=== PATIENT | female | born 1950 | race Hispanic/Latino ===

== ENCOUNTER 2018-06-26 12:25 | Emergency (ER) | payer MEDICARE ==
[2018-06-26 13:21] LABS: BASOPHILS % (AUTO) 0.1 % (0.0-5.0); EOSINOPHILS % (AUTO) 0.7 % (0.0-8.0); HEMATOCRIT 39.6 % (36-48); LYMPHOCYTES % (AUTO) 32.3 % (21.0-51.0); MEAN CORPUSCULAR HEMOGLOBIN 27.8 pg (27.0-33.0); MEAN CORPUSCULAR HGB CONC 32.7 g/dL (32.0-36.0); MEAN CORPUSCULAR VOLUME 84.8 fL (79-99); MONOCYTES % (AUTO) 5.8 % (3.0-13.0); NEUTROPHILS % (AUTO) 61.1 % (40.0-77.0); PLATELET COUNT (AUTO) 356 K/uL (130-400); RED BLOOD CELL COUNT(AUTO) 4.67 MIL/uL (4.00-5.50); RED CELL DISTRIBUTION WIDTH 15.8 % (11.0-15.5); WHITE BLOOD COUNT (AUTO) 9.5 K/uL (4.8-10.8)
[2018-06-26 13:27] LABS: APPEARANCE,URINE Clear (CLEAR); BILIRUBIN,URINE Negative (NEGATIVE); COLOR,URINE Yellow (YELLOW); GLUCOSE, URINE (UA) >=1000 mg/dL (NEGATIVE); KETONES,URINE Negative (NEGATIVE); LEUKOCYTE ESTERASE ,URINE Small (NEGATIVE); NITRATE,URINE Negative (NEGATIVE); OCCULT BLOOD,URINE Negative (NEGATIVE); PH,URINE 5.5 (5.0-8.0); PROTEIN,URINE Negative (NEGATIVE); UROBILINOGEN,URINE 0.2 mg/dL (0.2-1.0)
[2018-06-26] MEDS ORDERED: ONDANSETRON HCL 4 MG/2 ML VIAL ONE (13:28)
[2018-06-26] MEDS ORDERED: KETOROLAC TROMETHAMINE 30MG/ML ONE (13:29)
[2018-06-26] MEDS ORDERED: SODIUM CHLORIDE 0.9% 1000ML 1,000 ML IV ONE (13:29)
[2018-06-26 13:46] LABS: CARBON DIOXIDE 24 mmol/L (21-32); CHLORIDE 101 mmol/L (101-111); CREATININE 0.8 mg/dL (0.5-1.5); GLOMERULAR FILTR. RATE CALC 77 mL/min (>60); GLUCOSE,RANDOM 120 mg/dL (70-105); POTASSIUM 4.9 mmol/L (3.5-5.1); SODIUM SERUM 135 mmol/L (136-145); UREA NITROGEN, BLOOD 25 mg/dL (7-18)
[2018-06-26 13:51] LABS: ALANINE AMINOTRANSFERASE 54 U/L (12-78); ALBUMIN 3.5 g/dL (3.5-5.0); ASPARTATE AMINOTRANSFERASE 58 U/L (10-37); BILIRUBIN,DIRECT < 0.1 mg/dL (0.0-0.3); BILIRUBIN,TOTAL 0.3 mg/dL (0.2-1.0); LIPASE 162 U/L (114-286); TOTAL PROTEIN, SERUM 9.2 g/dL (6.0-8.3)
[2018-06-26 13:56] LABS: BACTERIA,URINE Few /HPF (None Seen); RBC,URINE 0-1 /HPF (0-1); SQUAMOUS EPITHELIAL CELL,UR Rare /HPF (0-2)
== END 2018-06-26 14:47 | disposition home or self-care (01) ==
LOC: EDH 12:25
DX: K52.9 Noninfective gastroenteritis and colitis, unspecified (principal); N12 Tubulo-interstitial nephritis, not specified as acute or chronic; I10 Essential (primary) hypertension; E78.00 Pure hypercholesterolemia, unspecified; E11.9 Type 2 diabetes mellitus without complications; Z85.3 Personal history of malignant neoplasm of breast; Z90.710 Acquired absence of both cervix and uterus; Z98.890 Other specified postprocedural states
CPT/HCPCS: 36415; 74176; 80048; 80076; 81001; 83690; 85025; 96361; 96374; 96375; 99284; J1885; J2405; J7030

== ENCOUNTER → 2019-02-19 | Outpatient (CLI) | payer MEDICARE | END | disposition home or self-care (01) | LOC: OIH 14:50 | PROVIDERS: ATTEND Family Medicine | DX: G89.4 Chronic pain syndrome (principal); M25.552 Pain in left hip; M25.551 Pain in right hip | CPT/HCPCS: 73521 ==

== ENCOUNTER → 2019-03-20 | Outpatient (CLI) | payer MEDICARE | END | disposition home or self-care (01) | LOC: RAH 11:43 | PROVIDERS: ATTEND Family Medicine | DX: J44.1 Chronic obstructive pulmonary disease with (acute) exacerbation (principal) | CPT/HCPCS: 71046 ==

== ENCOUNTER → 2020-10-05 | Outpatient (CLI) | payer MEDICARE ==
[~2020-10-05] MED LIST: ALEN70TA80 PO; ATOR40TA71 PO; BACL10TA PO; CETI10TA86 PO; CHOL500050 PO; DAPA10TA PO; GABA-529 PO; GEMF600T89 PO; IBUP-2077 PO; LETR2.5T7 PO; LOSA1TAB42 PO; MELO-106 PO; METF-444 PO; MONT10TA32 PO; NORT75CA PO; ONDA-104 PO; PANT40TA54 PO; SOLI5 PO
== END | disposition home or self-care (01) ==
LOC: SHCH 14:12
PROVIDERS: ATTEND Internal Medicine Cardiovascular Disease
DX: R00.2 Palpitations (principal)
CPT/HCPCS: 93306; 93356

== ENCOUNTER → 2020-10-08 | Outpatient (CLI) | payer MEDICARE ==
[~2020-10-08] VITALS: Ht 154.9 cm; Wt 92.5 kg
[~2020-10-08] MED LIST changes: +REGADENOSON 0.4 MG/5 ML PF SYG IVP SCH
== END | disposition home or self-care (01) ==
LOC: SHCH 07:52
PROVIDERS: ATTEND Internal Medicine Cardiovascular Disease
DX: R00.2 Palpitations (principal); R06.02 Shortness of breath; I25.10 Atherosclerotic heart disease of native coronary artery without angina pectoris; I25.9 Chronic ischemic heart disease, unspecified
CPT/HCPCS: 78452; 93017; 96374; A9500 ×2

== ENCOUNTER 2020-11-10 05:52 | Day surgery (SDC) | payer MEDICARE ==
[2020-11-08 10:25] LABS: BASOPHILS % (AUTO) 0.6 % (0.0-5.0); EOSINOPHILS % (AUTO) 1.6 % (0.0-8.0); HEMATOCRIT 36.8 % (36-48); LYMPHOCYTES % (AUTO) 23.6 % (21.0-51.0); MEAN CORPUSCULAR HEMOGLOBIN 24.2 pg (27.0-33.0); MEAN CORPUSCULAR HGB CONC 30.7 g/dL (32.0-36.0); MEAN CORPUSCULAR VOLUME 78.8 fL (79-99); NEUTROPHILS % (AUTO) 65.8 % (40.0-77.0); PLATELET COUNT (AUTO) 356 K/uL (130-400); RED BLOOD CELL COUNT(AUTO) 4.67 MIL/uL (4.00-5.50); RED CELL DISTRIBUTION WIDTH 17.4 % (11.0-15.5); WHITE BLOOD COUNT (AUTO) 11.6 K/uL (4.8-10.8)
[2020-11-08 10:27] LABS: APPEARANCE,URINE Clear (CLEAR); BILIRUBIN,URINE Negative (NEGATIVE); COLOR,URINE Yellow (YELLOW); GLUCOSE, URINE (UA) Negative (NEGATIVE); KETONES,URINE Negative (NEGATIVE); LEUKOCYTE ESTERASE ,URINE Trace (NEGATIVE); NITRATE,URINE Negative (NEGATIVE); OCCULT BLOOD,URINE Negative (NEGATIVE); PH,URINE 5.5 (5.0-8.0); PROTEIN,URINE Trace mg/dL (NEGATIVE)
[2020-11-08 10:35] LABS: BACTERIA,URINE Rare /HPF (None Seen); RBC,URINE 0-1 /HPF (0-1); SQUAMOUS EPITHELIAL CELL,UR Rare /HPF (0-2); WBC,URINE 0-1 /HPF (0-1)
[2020-11-08 10:49] LABS: INR 1.02 (0.85-1.15); PROTHROMBIN TIME 11.1 SEC (9.6-11.6)
[2020-11-08 10:50] LABS: PARTIAL THROMBOPLASTIN TIME 28.5 SEC (26.3-35.5)
[2020-11-08 10:54] LABS: CREATININE 1.1 mg/dL (0.5-1.5); POTASSIUM 4.5 mmol/L (3.5-5.1)
[2020-11-09 11:39] VITALS: BP 160/76
[2020-11-10] VITALS (13 sets, daily range): BP systolic 129–148; BP diastolic 62–81
[~2020-11-10] VITALS: Ht 160 cm; Wt 92.6 kg
[~2020-11-10 05:52] MED LIST changes: +ADV250 IH; +ALBU90AE2 IH; +CETI10TA57 PO; -CETI10TA86 PO; -CHOL500050 PO; -IBUP-2077 PO; +INSU3INS5 SQ; +LATA7.5D OP; -LETR2.5T7 PO; +LOSA100T58 PO; -LOSA1TAB42 PO; -MELO-106 PO; +MELO-108 PO; -ONDA-104 PO; -REGADENOSON 0.4 MG/5 ML PF SYG IVP SCH; +SITA25TA5 PO; +SODIUM CHLORIDE 0.9% 500ML 500 ML IV SCH; -SOLI5 PO; +VITAD50000 PO
[2020-11-10] MEDS ORDERED: SODIUM CHLORIDE 0.9% 1000ML 1,000 ML IV ONE (06:17)
[2020-11-10] MEDS ORDERED: IOHEXOL 350 MG/ML 100ML INFUS..BTL IV ONE (07:25)
[2020-11-10] MEDS ORDERED: LIDOCAINE HCL 2% 20ML ONE (07:25)
[2020-11-10] MEDS ORDERED: HEPARIN SODIUM 1000UNIT/ML 10ML VIAL ONE (07:25)
[2020-11-10] MEDS ORDERED: IOHEXOL-350 50ML VIAL IV ONE (07:25)
[2020-11-10] MEDS ORDERED: GLUCAGON 1MG KIT 1 MG ML IM PRN (08:00)
[2020-11-10] MEDS ORDERED: DEXTROSE 50%-WATER 50 ML DISP.SYRIN IV PRN (08:00)
[2020-11-10] MEDS ORDERED: SODIUM CHLORIDE 0.9% 1000ML 1,000 ML IV SCH (08:15)
[2020-11-10] MEDS ORDERED: INSULIN HUMULIN R 100 UNIT/ML 3ML SQ SCH (11:30)
== END 2020-11-10 14:30 | disposition home or self-care (01) ==
LOC: DAH 05:52
PROVIDERS: ATTEND Internal Medicine Cardiovascular Disease
DX: I25.118 Atherosclerotic heart disease of native coronary artery with other forms of angina pectoris (principal); I08.0 Rheumatic disorders of both mitral and aortic valves; J45.909 Unspecified asthma, uncomplicated; E78.00 Pure hypercholesterolemia, unspecified; Z79.84 Long term (current) use of oral hypoglycemic drugs; Z79.899 Other long term (current) drug therapy; Z79.01 Long term (current) use of anticoagulants; Z98.890 Other specified postprocedural states; Z82.49 Family history of ischemic heart disease and other diseases of the circulatory system
CPT/HCPCS: 36415; 71045; 80048; 81001; 82948 ×2; 85025; 85610; 85730; 93005; 93458; A4215; A4216; A4221; A4222; A4223 ×3; A4335; A4606; A4663; C1894; J1644 ×2; J3490; J7030; Q9965; Q9967 ×2; 96360; 96361

== ENCOUNTER 2021-01-25 05:42 | Day surgery (SDC) | payer MEDICARE ==
[~2021-01-25] VITALS: Ht 157.5 cm; Wt 90.7 kg
[~2021-01-25 05:42] MED LIST changes: -SODIUM CHLORIDE 0.9% 500ML 500 ML IV SCH
[2021-01-25] MEDS ORDERED: 0.9%NACL 1000ML 1,000 ML IV ONE (06:19)
[2021-01-25 06:23] VITALS: BP 127/59
[2021-01-25] MEDS ORDERED: PROPOFOL 10 MG/ML 20ML VIAL IV ONE (07:23)
[2021-01-25 07:40] VITALS: BP 102/51
[2021-01-25 07:45] VITALS: BP 100/55
[2021-01-25 07:50] VITALS: BP 98/59
[2021-01-25 08:05] VITALS: BP 119/65
== END 2021-01-25 08:10 | disposition home or self-care (01) ==
LOC: DAH 05:42 → ENDO 05:42
PROVIDERS: ATTEND Internal Medicine
DX: R93.5 Abnormal findings on diagnostic imaging of other abdominal regions, including retroperitoneum (principal); Z20.822 Contact with and (suspected) exposure to COVID-19; K31.89 Other diseases of stomach and duodenum; I89.9 Noninfective disorder of lymphatic vessels and lymph nodes, unspecified; R13.10 Dysphagia, unspecified; E11.9 Type 2 diabetes mellitus without complications; I10 Essential (primary) hypertension; F32.9 Major depressive disorder, single episode, unspecified; M19.90 Unspecified osteoarthritis, unspecified site; M81.0 Age-related osteoporosis without current pathological fracture; G47.00 Insomnia, unspecified; K21.9 Gastro-esophageal reflux disease without esophagitis; J45.909 Unspecified asthma, uncomplicated; Z98.49 Cataract extraction status, unspecified eye; Z79.4 Long term (current) use of insulin; Z79.899 Other long term (current) drug therapy
CPT/HCPCS: 43237; 43239; 82948 ×2; 87635; A4215; A4221; A4222; A4223; A4606; A4620; A4657; A4663; C9803; J2704; J7030

== ENCOUNTER 2024-05-30 02:02 | Inpatient (IN) | payer MEDICARE ==
[~2024-05-30] VITALS: Ht 157.5 cm; Wt 84.2 kg
[2024-05-30] VITALS (8 sets, daily range): BP systolic 143–169; BP diastolic 66–95; PULSE 69–106; RESP 17–20; TEMP 97.8–98.9; O2SAT 96
[~2024-05-30 02:02] MED LIST changes: -ALBU90AE2 IH; +ALBU90AE3 IH; -LOSA100T58 PO; +LOSA100T59 PO; +MONT-39 PO; -MONT10TA32 PO
--- NOTE | 2024-05-30 02:24 | ERN ---
ED Note History of Present Illness Stated Complaint: ABDOMINAL PAIN, CONSTIPATION Chief Complaint: Abdominal Pain Time Seen by MD: 02:03 Time Seen by Midlevel: 02:10 Dictation: 73-year-old female with a history of hypertension, diabetes, cholesterol coming in complaining of generalized abdominal pain for eight days. Patient states she is also nauseated and has a had a bowel movement in two days which is none common for her. Denies having any vomiting, diarrhea. Denies having any dysuria or hematuria. States went to her PCP three days ago where they gave her pills for inflammation and pain and states has not felt better. Allergies: Coded Allergies: No Known Allergies (Unverified Allergy, Unknown, 05/30/24) Home Meds Reported Medications Meloxicam (Meloxicam) 15 Mg Tablet, 15 MG PO DAILY, TAB 11/09/20 Sitagliptin Phosphate (Januvia) 25 Mg Tablet, 25 MG PO DAILY, TAB 11/09/20 Gemfibrozil (Gemfibrozil) 600 Mg Tablet, 600 MG PO BID, TAB 11/09/20 Cetirizine HCl (Cetirizine HCl) 10 Mg Tablet, 10 MG PO HS, TAB 11/09/20 Insuln Asp Prt/Insulin Aspart (Novolog Mix 70-30 Flexpen Syrn) 100 Unit/1 Ml Insuln.pen, 100 UNITS SQ TID, SYRINGE 11/09/20 Losartan Potassium (Losartan Potassium) 100 Mg Tablet, 100 MG PO DAILY, TAB 11/09/20 Cholecalciferol (Vitamin D3) 50,000 Units Cap, 97419 UNITS PO QWEEK, CAP 11/09/20 Fluticasone/Salmeterol (ADVAIR 250-50 DISKUS) 14 Inh/Disk Inh, 1 INH IH BID, INHALER 11/09/20 Albuterol Sulfate (Proair Digihaler) 90 Mcg Aer.pw.bas, 90 MCG IH AD PRN for SHORTNESS OF BREATH 11/09/20 Latanoprost/Pf (Latanoprost 0.005% Eye Drop) 7.5 Ml Drops, 7.5 ML OP HS, DROP 11/09/20 Dapagliflozin Propanediol (Farxiga) 10 Mg Tablet, 10 MG PO DAILY, TAB 06/07/19 Atorvastatin Calcium (Atorvastatin Calcium) 40 Mg Tablet, 40 MG PO HS, TAB 06/07/19 Montelukast Sodium (Montelukast Sodium) 10 Mg Tablet, 10 MG PO HS, TAB 06/07/19 Metformin HCl (Metformin HCl) 500 Mg Tablet, 500 MG PO BID, TAB 06/07/19 Gabapentin (Gabapentin) 100 Mg Capsule, 100 MG PO TID, CAP 06/07/19 Alendronate Sodium (Alendronate Sodium) 70 Mg Tablet, 70 MG PO QWEEK, TAB 06/07/19 Nortriptyline HCl (Nortriptyline HCl) 75 Mg Capsule, 75 MG PO HS, CAP 06/07/19 Baclofen (Baclofen) 10 Mg Tablet, 10 MG PO TID, TAB 06/07/19 Pantoprazole Sodium (Pantoprazole Sodium) 40 Mg Tablet.dr, 40 MG PO DAILY, TAB 06/07/19 Past Medical History Past Medical History: Diabetes-Type II, High Cholesterol, Hypertension Additional Past Medical Hx: ABDOMINAL HERNIAS Surgical History: Unknown Review of System Dictation Constitutional: Negative for fever,chills, and weight loss Eyes: Negative for injury, pain,redness, and discharge ENT: Negative for injury,pain or swelling Cardiovascular: Negative for chest pain, palpitations, and edema Respiratory: Negative for shortness of breath, cough, and wheezing, Abdomen/GI: Complaining of generalized abdominal pain and constipation, no vomiting or diarrhea Back: Negative for injury and pain : Negative for injury, bleeding and discharge MS/Extremity: Negative for injury and deformity Skin: Negative for rash, and discoloration Neuro: Negative for headache, weakness, numbness, tingling, and seizure Psych: Negative for suicide ideation, homicidal ideation, and hallucinations Review of Systems: was completed Initial Vital Sign VS Vital Signs Date Time Temp Pulse Resp B/P (MAP) Pulse Ox O2 Delivery O2 Flow Rate FiO2 05/30/24 02:03 96.8 79 22 111/68 99 Room Air* 0 21 Physical Exam Dictation General: awake, alert, NAD Head/Face: Normocephalic, atraumatic Eyes: PERRL, EOMI, vision at baseline ENT: oral cavity clear, TMs clear, no signs of infection Neck: Trachea midline, supple, no nuchal rigidity Cardiovascular: RRR, normal S1/S2, No MRGs, no JVD Respiratory: CTAB, no respiratory distress, No rales or wheezes Abdomen: Soft, mild generalized tenderness, non-distended, normal bowel sounds, no guarding or rebound. Skin: Warm, dry, normal turgor, no rash MS/Extremity: Pulses equal, no cyanosis, neurovascular intact, FROM Neuro: COAx4, GCS 15, strength 5/5, CN 2-12 intact, normal cerebellar exam, normal gait, Psych: Normal behavior, mood, and affect normal Results (Laboratory/Radiology) Laboratory/Radiology Laboratory Tests Test 05/30/24 02:12 05/30/24 02:25 05/30/24 02:39 Lactic Acid Level 2.4 mmol/L (0.8-2.5) White Blood Count 17.4 K/uL (4.8-10.8) H Red Blood Count 3.46 MIL/uL (4.00-5.50) L Hemoglobin 10.3 g/dL (12.0-16.0) L Hematocrit 31.0 % (36-48) L Mean Corpuscular Volume 89.6 fL (79-99) Mean Corpuscular Hemoglobin 29.8 pg (27.0-33.0) Mean Corpuscular Hemoglobin Concent 33.2 g/dL (32.0-36.0) Red Cell Distribution Width 14.6 % (11.0-15.5) Platelet Count 264 K/uL (130-400) Mean Platelet Volume 11.5 fL (7.5-10.5) H Immature Granulocyte % (Auto) 2.1 % (0-1) H Neutrophils (%) (Auto) 84.6 % (40.0-77.0) H Lymphocytes (%) (Auto) 7.3 % (21.0-51.0) L Monocytes (%) (Auto) 5.5 % (3.0-13.0) Eosinophils (%) (Auto) 0.2 % (0.0-8.0) Basophils (%) (Auto) 0.3 % (0.0-5.0) Neutrophils # (Auto) 14.7 K/uL (1.8-7.7) H Lymphocytes # (Auto) 1.3 K/uL (1.0-4.8) Monocytes # (Auto) 1.0 K/uL (0.1-1.0) Eosinophils # (Auto) 0.04 K/uL (0.00-0.70) Basophils # (Auto) 0.05 K/uL (0.00-0.20) Absolute Immature Granulocyte (auto 0.37 K/uL (0-1) Nucleated Red Blood Cells 0.2 % (0.0-0.19) H White Cell Morphology Comment See comments Sodium Level 129 mmol/L (136-145) L Potassium Level 5.2 mmol/L (3.5-5.1) H Chloride Level 97 mmol/L (101-111) L Carbon Dioxide Level 17 mmol/L (21-32) L Blood Urea Nitrogen 46 mg/dL (7-18) H Creatinine 1.8 mg/dL (0.5-1.0) H Glomerular Filtration Rate Calc 30 mL/min (>90) Random Glucose 195 mg/dL (70-105) H Total Calcium 8.0 mg/dL (8.5-10.1) L Total Bilirubin 0.6 mg/dL (0.2-1.0) Aspartate Amino Transf (AST/SGOT) 36 U/L (10-37) Alanine Aminotransferase (ALT/SGPT) 21 U/L (12-78) Alkaline Phosphatase 146 U/L (50-136) H Troponin I High Sensitivity 13 ng/L (4-50) Total Protein 7.0 g/dL (6.0-8.3) Albumin 2.0 g/dL (3.5-5.0) L Lipase 240 U/L (16-77) H Urine Color YELLOW (YELLOW) Urine Appearance TURBID (CLEAR) Urine pH 6.0 (5.0-8.0) Urine Specific Manson 1.020 (1.001-1.031) Urine Protein 50 mg/dL (NEGATIVE) H Urine Glucose (UA) >=1000 mg/dL (NEGATIVE) H Urine Ketones 5 mg/dL (NEGATIVE) H Urine Occult Blood MODERATE (NEGATIVE) H Urine Nitrate NEGATIVE (NEGATIVE) Urine Bilirubin NEGATIVE mg/dL (NEGATIVE) Urine Urobilinogen 0.2 mg/dL (0.2-1.0) Urine Leukocyte Esterase 500 Kevin/uL (NEGATIVE) H Urine RBC 26-50 /HPF (0-1) H Urine WBC TNTC /HPF (0-1) H Urine WBC Clumps (Auto) MANY /HPF (0-1) Urine Squamous Epithelial Cells RARE /HPF (0-2) Urine Non-Squamous Epithelial Cells 3 /HPF (0-2) Urine Bacteria MANY /HPF (None Seen) Urine Hyaline Casts 2-5 /LPF (0-1 /LPF) H Urine Yeast FEW /HPF (None Seen) Labs Reviewed?: Yes EKG Comment: Date:05/30/24 Time:0218 Ventricular rate:83 ID interval:194 QRS duration:-21 QT/QTc:391/460 EKG interpretation: Sinus rhythm, probable left ventricular hypertrophy Reviewed by ED Attending no STEMI interpreted by ER MD CT Scan Comment: CT ABDOMEN AND PELVIS WITHOUT CONTRAST, MODERATE STOOL IN THE PROXIMAL COLON, ATHEROSCLEROTIC CALCIFICATION, ADRENAL CALCIFICATION, ANTERIOR ABDOMINAL WALL HERNIA CONTAINING ONLY FAT, NEAR VERTEBRAL PLANA AT L1 WITH THE POSTERIOR FRAGMENT NARROWING OF THE CANAL. ED Course ED Course Orders Procedure Category Date Status Time Cbc With Differential LAB 05/30/24 Complete 02:08 Comprehensive LAB 05/30/24 Complete Metabolic Panel 02:08 Lipase LAB 05/30/24 Complete 02:08 12 Lead Ekg Tracing- EKG 05/30/24 Logged Technical 02:08 Urinalysis Profile LAB 05/30/24 Complete 02:08 Troponin I High LAB 05/30/24 Complete Sensitivity 02:21 Ondansetron 4mg Inj PHA 05/30/24 Complete (Zofran 4mg Inj) 02:30 Morphine 2mg Syg PHA 05/30/24 Complete (Morphine 2mg Syg) 02:21 Lactic Acid LAB 05/30/24 Complete 02:43 Blood Cult BRANDEN 05/30/24 In Process 02:43 Zosyn 3.375gm+Ns 50ml PHA 05/30/24 Complete (Zosyn 3.375gm+Ns 02:43 Vancomycin 1g/250ml PHA 05/30/24 Complete Kit (Vancomycin 1g/2 02:43 Culture Urine BRANDEN 05/30/24 In Process 03:20 Dextrose 50%-Water PHA 05/30/24 Complete (Dextrose 50%-Water) 04:30 Insulin Regular, PHA 05/30/24 Complete Human 3ml (Humulin R 04:30 Albuterol 0.083% PHA 05/30/24 In Process 2.5mg/3ml (Proventil 04:30 0.9%Nacl 1000ml (Ns PHA 05/30/24 In Process 1000ml) 04:30 Ct Abdomen/Pelvis W/O CT 05/30/24 Taken Contrast 04:13 Dextrose 50%-Water PHA 05/30/24 Complete (D50w) 04:30 Current Medications Medications (Trade) Dose Ordered Sig/Durga Route PRN Reason Start Time Stop Time Status Last Admin Dose Admin Albuterol Sulfate (Proventil 0.083% 2.5mg/3ml) 10 mg ONCE IH 05/30/24 04:30 06/29/24 04:29 05/30/24 05:05 Dextrose (D50w) 50 ml ONCE ONCE IV 05/30/24 04:30 05/30/24 04:31 DC 05/30/24 04:24 Dextrose (Dextrose 50%-Water) 25 gm ONCE ONCE IV 05/30/24 04:30 05/30/24 04:21 DC Insulin Human Regular (humuLIN R 100 UNIT/ML 3ML) 5 unit ONCE ONCE IV 05/30/24 04:30 05/30/24 04:31 DC 05/30/24 04:19 Morphine Sulfate (morPHINE 2MG SYG) 2 mg ONCE STAT IVP 05/30/24 02:21 05/30/24 02:23 DC 05/30/24 02:30 Ondansetron HCl (zoFRAN 4MG INJ) 4 mg ONCE ONCE IVP 05/30/24 02:30 05/30/24 02:31 DC 05/30/24 02:30 Piperacillin Sod/ Tazobactam Sod (Zosyn 3.375gm+NS 50ml) 3.375 gm ONCE STAT IVPB 05/30/24 02:43 05/30/24 02:47 DC 05/30/24 03:03 Sodium Chloride 2,313 ml @ 771 mls/hr ONCE ONCE IV 05/30/24 04:30 05/30/24 07:29 05/30/24 04:17 Vancomycin HCl (Vancomycin 1g/ 250ml Kit) 1 gm ONCE STAT IV 05/30/24 02:43 05/30/24 02:47 DC 05/30/24 03:50 Vital Signs Date Time Temp Pulse Resp B/P (MAP) Pulse Ox O2 Delivery O2 Flow Rate FiO2 05/30/24 04:43 88 18 118/55 98 Room Air* 0 05/30/24 03:15 78 19 100/61 99 Room Air* 0 05/30/24 02:04 96.8 79 22 111/68 99 Room Air 0 05/30/24 02:03 96.8 79 22 111/68 99 Room Air* 0 21 Medical Decision Making MDM MDM: DIFFERENTIAL DIAGNOSIS: SEPSIS UTI, HYPERKALEMIA, DEHYDRATION, THIERRY RATIONALE: TESTS CONSIDERED AND ORDERED SECONDARY TO SHARED DECISION MAKING INCLUDE: LABS, ECG AND RADIOLOGY PREVIOUS OUTSIDE RECORDS REVIEWED: OLD ER VISITS. RISK OF COMPLICATION AND/OR MORBIDITY OR MORTALITY OF PATIENT MANAGEMENT: NONE MEDICATIONS-PER MEDICATION RECONCILIATION NEED FOR HOSPITALIZATION: PATIENT DOES MEET CRITERIA FOR HOSPITALIZATION. NEED FOR EMERGENCY MAJOR/MINOR SURGERY: NO THERE ARE NO SOCIAL CONCERNS WITH THIS PATIENT. PRESCRIPTION DRUG MANAGEMENT PRESCRIPTIONS WILL INCLUDE SYMPTOMATIC CARE PATIENT'S PRIOR EXTERNAL MEDICAL RECORDS FROM OTHER ER VISITS WERE REVIEWED BY ME INDICATED. PRIOR TESTING AND RESULTS FROM PREVIOUS VISITS WERE REVIEWED. PRIOR TESTS WERE TAKEN INTO ACCOUNT WITH MEDICAL DECISION MAKING AND RESOURCE UTILIZATION, INDEPENDENT HISTORIAN/HISTORIANS WERE USED TO OBTAIN COMPLETE MEDICAL HISTORY. I INDEPENDENTLY INTERPRETED THE TEST THAT WERE PERFORMED, RESULTS WERE REVIEWED BY ME AND CONSIDERED FINDINGS ON RADIOLOGY IF ORDERED. MEDICAL MANAGEMENT AND EXAMINATION INTERPRETATION DISCUSSIONS WERE HAD BY ME WITH OTHER QUALIFIED HEALTHCARE PROFESSIONALS INDICATED FOR THE PATIENT'S CARE. PATIENT IS A 73-YEAR-OLD FEMALE COMING IN TO BE EVALUATED FOR GENERALIZED BODY WEEKS AND ABDOMINAL DISCOMFORT. CT OF THE ABDOMEN DISCLOSE ONLY CONSTIPATION. LABORATORY WORKUP POSITIVE FOR ELEVATED WHITE BLOOD CELL COUNT HYPERKALEMIA AND THIERRY. PATIENT WILL BE ADMITTED UNDER THE CARE OF HOSPITALIST GROUP FOR ONGOING MANAGEMENT OF SEPSIS SECONDARY TO UTI. Critical Care Note Comment(s) CRITICAL CARE PROCEDURE NOTE AUTHORIZED AND PERFORMED BY: TOTAL CRITICAL CARE TIME: APPROXIMATELY 36 MINUTES DUE TO A HIGH PROBABILITY OF CLINICALLY SIGNIFICANT, LIFE THREATENING DETERIORATION, THE PATIENT REQUIRED MY HIGHEST LEVEL OF PREPAREDNESS TO INTERVENE EMERGENTLY AND I PERSONALLY SPENT THIS CRITICAL CARE TIME DIRECTLY AND PERSONALLY MANAGING THE PATIENT. THIS CRITICAL CARE TIME INCLUDED OBTAINING A HISTORY; EXAMINING THE PATIENT; PULSE OXIMETRY; ORDERING AND REVIEW OF STUDIES; ARRANGING URGENT TREATMENT WITH DEVELOPMENT OF A MANAGEMENT PLAN; EVALUATION OF PATIENT'S RESPONSE TO TREATMENT; FREQUENT REASSESSMENT; AND, DISCUSSIONS WITH OTHER PROVIDERS. THIS CRITICAL CARE TIME WAS PERFORMED TO ASSESS AND MANAGE THE HIGH PROBABILITY OF IMMINENT, LIFE-THREATENING DETERIORATION THAT COULD RESULT IN MULTI-ORGAN FAILURE. IT WAS EXCLUSIVE OF SEPARATELY BILLABLE PROCEDURES AND TREATING OTHER PATIENTS AND TEACHING TIME. PLEASE SEE MDM SECTION AND THE REST OF THE NOTE FOR FURTHER INFORMATION ON PATIENT ASSESSMENT AND TREATMENT. DX & DISP Disposition: Inpatient Decision to Admit Time: 05:09 Departure Impression: Primary Impression: Sepsis Additional Impressions: UTI (urinary tract infection), Hyperkalemia, THIERRY (acute kidney injury) Condition: Stable Referrals: SHIVANI HARRISON MD (PCP) ZAHEER SANDHU NP May 30, 2024 02:24 MOJGAN MENON MD May 30, 2024 05:10
[2024-05-30] MEDS: ondanSETRON 4MG INJ IVP ONE (02:30)
[2024-05-30] MEDS: morPHINE 2 MG SYG IVP STA (02:30)
[2024-05-30 02:34] LABS: BASOPHILS # (AUTO) 0.05 K/uL (0.00-0.20); BASOPHILS % (AUTO) 0.3 % (0.0-5.0); EOSINOPHILS # (AUTO) 0.04 K/uL (0.00-0.70); EOSINOPHILS % (AUTO) 0.2 % (0.0-8.0); IMMATURE GRANULOCYTE ABSOLUTE 0.37 K/uL (0-1); LYMPHOCYTES # (AUTO) 1.3 K/uL (1.0-4.8); LYMPHOCYTES % (AUTO) 7.3 % (21.0-51.0); MEAN CORPUSCULAR HEMOGLOBIN 29.8 pg (27.0-33.0); MEAN CORPUSCULAR HGB CONC 33.2 g/dL (32.0-36.0); MEAN CORPUSCULAR VOLUME 89.6 fL (79-99); MONOCYTES % (AUTO) 5.5 % (3.0-13.0); NEUTROPHILS # (AUTO) 14.7 K/uL (1.8-7.7); NEUTROPHILS % (AUTO) 84.6 % (40.0-77.0); NUCLEATED RED BLOOD CELLS 0.2 % (0.0-0.19); PLATELET COUNT (AUTO) 264 K/uL (130-400); RED BLOOD CELL COUNT(AUTO) 3.46 MIL/uL (4.00-5.50); RED CELL DISTRIBUTION WIDTH 14.6 % (11.0-15.5); WHITE BLOOD COUNT (AUTO) 17.4 K/uL (4.8-10.8)
[2024-05-30] MEDS: ZOSYN 3.375GM +NS 50ML IVPB STA (03:03)
[2024-05-30 03:20] LABS: ADD UA MICROSCOPIC YES; APPEARANCE,URINE TURBID (CLEAR); BILIRUBIN,URINE NEGATIVE (NEGATIVE); COLOR,URINE YELLOW (YELLOW); GLUCOSE, URINE (UA) >=1000 mg/dL (NEGATIVE); KETONES,URINE 5 mg/dL (NEGATIVE); LEUKOCYTE ESTERASE ,URINE 500 Leu/uL (NEGATIVE); NITRATE,URINE NEGATIVE (NEGATIVE); OCCULT BLOOD,URINE MODERATE (NEGATIVE); PROTEIN,URINE 50 mg/dL (NEGATIVE); UROBILINOGEN,URINE 0.2 mg/dL (0.2-1.0)
[2024-05-30 03:21] LABS: BACTERIA,URINE MANY /HPF (None Seen); MUCUS,URINE RARE LPF (None Seen); NON-SQUAMOUS EPITHELIAL CELL 3 /HPF (0-2); RBC,URINE 26-50 /HPF (0-1); SQUAMOUS EPITHELIAL CELL,UR RARE /HPF (0-2); WBC CLUMP MANY /HPF (0-1); WBC,URINE TNTC /HPF (0-1); YEAST,URINE BUDDING FEW /HPF (None Seen)
[2024-05-30] MEDS: VANCOMYCIN KIT 1 GM/250 ML IV.KIT IV STA (03:50)
[2024-05-30 04:01] LABS: CREATININE 1.8 mg/dL (0.5-1.0); POTASSIUM 5.2 mmol/L (3.5-5.1)
[2024-05-30 04:05] LABS: BILIRUBIN,TOTAL 0.6 mg/dL (0.2-1.0)
[2024-05-30] MEDS: 0.9%NACL 1000ML 2,313 ML IV ONE (04:17)
[2024-05-30] MEDS: INSULIN humuLIN R 100 UNIT/ML 3ML IV ONE (04:19)
[2024-05-30] MEDS: DEXTROSE 50%-WATER 50 ML DISP.SYRIN IV ONE (04:24)
[2024-05-30] MEDS ORDERED: DEXTROSE 50%-WATER 25 GM/50 ML VIAL IV ONE (04:30)
[2024-05-30] MEDS: ALBUTEROL 0.083% 2.5 MG/3 ML INH IH SCH (05:05)
[2024-05-30] MEDS ORDERED: IRON1CAP32 PO (05:23)
[2024-05-30] MEDS ORDERED: NIFE-40 PO (05:23)
[2024-05-30] MEDS ORDERED: CYCL-309 PO (05:23)
[2024-05-30] MEDS ORDERED: ATOR40TA71 PO (05:23)
[2024-05-30] MEDS ORDERED: CHOL500062 PO (05:23)
[2024-05-30] MEDS ORDERED: NAPR-1023 PO (05:23)
[2024-05-30] MEDS ORDERED: ALBU18HF7 IH (05:28)
[2024-05-30] MEDS ORDERED: ALBU2.5V2 NEB (05:28)
[2024-05-30] MEDS ORDERED: LATA2.5D14 OU (05:28)
[2024-05-30] MEDS ORDERED: BRIM5DRO5 OU (05:28)
[2024-05-30] MEDS ORDERED: DULA0.75 SQ (05:28)
[2024-05-30] MEDS ORDERED: INSU10VI3 SQ (05:28)
[2024-05-30] MEDS ORDERED: PoTASSium chl 10% ELIXIR 20MEQ 20 MEQ/15 ML UDCUP PO PRN (05:30)
[2024-05-30] MEDS ORDERED: ondanSETRON 4MG INJ IV PRN (05:30)
[2024-05-30] MEDS ORDERED: hydrALAZine 20MG/ML VIAL IV PRN (05:30)
[2024-05-30] MEDS ORDERED: MAGNESIUM 2GM PREMIX 50ML 50 ML IV PRN (05:30)
--- NOTE | 2024-05-30 05:31 | HP ---
History of Present Illness Referring MD: Sylvain Ramirez History of Present Illness Ms. Stevens is a 73 year old female that was seen and examined today on 05/30/2024. Patient reports that she came to the emergency department with a chief complaint of abdominal pain. Onset was eight days ago. Location is to right lower lateral quadrant. Duration is constant. Character is described as stabbing pain. Patient thinks the pain is being caused by a chronic hernia that she has. Symptoms are aggravated with the walking. There was no alleviating factors. Patient denies any associated nausea, vomiting, diarrhea, shortness of breath, chest pain. Today in the emergency department WBCs 17.4, left shift neutrophils 84.6%, creatinine 1.8, GFR 30, glucose 195 mg/dL, lactic acid 2.4, urinalysis positive for leukocyte esterase and WBCs too many to count under high-powered microscopy. Emergency room physician recommended that patient be admitted with a diagnosis of sepsis, UTI. Past Medical History Patient History: Cardiovascular disease FATHER, Diabetes mellitus BROTHER Hypertension MOTHER, ADDITIONAL PAST MEDICAL HISTORY: [Diabetes mellitius type2, hypertension, osteoporosis, arthritis, breast CA currently in remission] SOCIAL HISTORY: [Negative for smoking, alcohol use, drug use. Patient lives with her daughter Patricia Cortez ] SURGICAL HISTORY: [Hysterectomy, cholecystectomy, eye surgery, abdominal hernia repair] Review of Systems General: No Fever, No Chills, No Night Sweats, No Fatigue, No Malaise, No Appe tite, No Other HEENT: No Head Aches, No Visual Changes, No Eye Pain, No Ear Pain, No Dysphasia, No Sinus Congestion, No Post Nasal Drip, No Sore Throat, No Other Pulmonary: No Dyspnea, No Cough, No Pleuritic Chest Pain, No Other Cardiovascular: No: Chest Pain, Palpitations, Orthopnea, Paroxysmal Noc. Dyspnea, Edema, Lt Headedness, Other Gastrointestinal: Abdominal Pain; No: Nausea, Vomiting, Diarrhea, Constipation, Melena, Hematochezia, Other Genitourinary: No Dysuria, No Frequency, No Incontinence, No Hematuria, No Retention, No Other Musculoskeletal: No: other, neck pain, shoulder pain, arm pain, back pain, hand pain, leg pain, foot pain Skin: No Urticaria, No Rash, No Other Neurological: No: Weakness, Numbness, Incoordination, Change in speech, Confusion, Seizures, Other Allergies: Coded Allergies: No Known Allergies (Unverified Allergy, Unknown, 05/30/24) Scheduled Alendronate Sodium (Alendronate Sodium), 70 MG PO QWEEK, (Reported) Atorvastatin Calcium (Atorvastatin Calcium), 40 MG PO HS, (Reported) Baclofen (Baclofen), 10 MG PO TID, (Reported) Cetirizine HCl (Cetirizine HCl), 10 MG PO HS, (Reported) Cholecalciferol (Vitamin D3), 50,000 UNITS PO QWEEK, (Reported) Dapagliflozin Propanediol (Farxiga), 10 MG PO DAILY, (Reported) Fluticasone/Salmeterol (Advair 250-50 Diskus), 1 INH IH BID, (Reported) Gabapentin (Gabapentin), 100 MG PO TID, (Reported) Gemfibrozil (Gemfibrozil), 600 MG PO BID, (Reported) Insuln Asp Prt/Insulin Aspart (Novolog Mix 70-30 Flexpen Syrn), 100 UNITS SQ TID, (Reported) Latanoprost/Pf (Latanoprost 0.005% Eye Drop), 7.5 ML OP HS, (Reported) Losartan Potassium (Losartan Potassium), 100 MG PO DAILY, (Reported) Meloxicam (Meloxicam), 15 MG PO DAILY, (Reported) Metformin HCl (Metformin HCl), 500 MG PO BID, (Reported) Montelukast Sodium (Montelukast Sodium), 10 MG PO HS, (Reported) Nortriptyline HCl (Nortriptyline HCl), 75 MG PO HS, (Reported) Pantoprazole Sodium (Pantoprazole Sodium), 40 MG PO DAILY, (Reported) Sitagliptin Phosphate (Januvia), 25 MG PO DAILY, (Reported) Scheduled PRN Albuterol Sulfate (Proair Digihaler), 90 MCG IH AD PRN for SHORTNESS OF BREATH, (Reported) Exam Vital Signs Vital Signs Date Time Temp Pulse Resp B/P (MAP) Pulse Ox O2 Delivery O2 Flow Rate FiO2 05/30/24 05:05 88 20 05/30/24 04:43 118/55 98 Room Air* 0 21 05/30/24 02:04 96.8 General Appearance: Alert, Oriented X3, Cooperative, mild distress HEENT: Atraumatic, EOMI, Mucous membr. moist/pink Respiratory: Clear to auscultation, Normal air movement, NL respiratory effort Cardiovascular: Regular rate, Regular rhythm, Normal S1, Normal S2 Abdominal: Normal bowel sounds, Soft, No tenderness Extremities: No edema Skin: No significant lesion Neuro: Normal gait, Normal speech, Strength at 5/5 X4 ext Psych/Mental Status: Mental status NL, Mood NL, Thoughts/Content NL Assessment/Plan ASSESSMENT: [ Sepsis, POA Urinary tract infection, POA Leukocytosis, POA letha vs ckd Hyperlactatemia, POA Uncontrolled Diabetes mellitius type2 Hypertension] PLAN: [ Admit patient to [facility] as inpatient status. Place patient on telemetry monitoring. Patient received fluid resuscitation with 0.9% NS 30 mL/kg times 1 in the emergency department. Continue empiric antibiotic therapy with Zosyn. Check blood culture, follow up with the results. Check procalcitonin, follow up with the results. Check urine culture, follow up with the results. Empiric antibiotic therapy with Zosyn. Repeat lactic acid in a.m.. Monitor intake and output every shift Weight patient daily Avoid nephrotoxic agents when possible Renally dose all medications when possible Calculate FENA Check urine sodium, creatinine, osmolality Consider consulting Nephrology service if any worsening renal function or evidence of ATN. IV fluid maintenance therapy lactated Ringer's at 60 mL/HR. Check hemoglobin A1c in a.m. Glucometer checks a.c. and HS 1800 ADA diet Humulin R sliding scale half dose. Consider resuming home medications once they have been reconciled For now, Hydralazine 10 mg IV every 6 hours for systolic blood pressure greater than 160 mmHg GI prophylaxis, Protonix 40 mg by mouth once daily. DVT prophylaxis, heparin 5000 units subcutaneously once daily. ADVANCED CARE PLANNING 1. Which of the following were discussed? Hospice Care - Yes Therapeutic options - Yes Advance Directives - Yes-patient states she does not have any advance directives in place at this time, however her daughter Patricia can make decisions for her if she becomes unable. Other discussions - patient wishes to remain a full code at this time 2. Discussed with who? Patient 3. Voluntary nature of this service was explained to the patient? Yes 4. Amount of time spent - ___ 16 minutes ____ 5. Reviewed by Physician? (if this service was performed by NPP) Yes This document was generated in part using voice recognition software, occasional wrong word or sound alike substitutions may have occurred due to the inherent limitations of voice recognition software. Read the chart carefully and recognize using context, where the substitutions have occurred. Although every effort was made to edit the content, civil structural designer and typing errors may occur ATTESTATION BY PHYSICIAN I have seen and examined the patient. I reviewed the documentation, medical decision making, and treatment plan as noted by the mid-level provider above. I agree with the findings and plan of care. MIRELA ALEJANDRO [facility] May 30, 2024 05:31
[2024-05-30] MEDS: LACTATED RINGERS 1000ML 1,000 ML IV SCH (05:42)
--- NOTE | 2024-05-30 05:50 | EKG ---
[facility] Test Date: 2024-05-30 Test Time: 02:18:55 Pat Name: MARIELA SAGE Department: [facility] Room: 424 Gender: F Object Oriented Developer: [id number] : 1950 Requested By: ZAHEER SANDHU Order Number: [id number] Reading MD: Mary Sesay Measurements Intervals [place] Rate: 83 P: 40 AR: 194 QRS: -21 QRSD: 100 T: 36 QT: 391 QTc: 460 Interpretive Statements Sinus rhythm Probable left ventricular hypertrophy Compared to ECG 11/08/2020 10:07:08 Ventricular premature complex(es) no longer present Electronically Signed On 06-01-2024 11:33:13 PERINATAL BREASTFEEDING ASSISTANT by Mray Sesay Please click the below link to view image of tracing.
[2024-05-30] MEDS: morPHINE 2 MG SYG IVP PRN (05:52)
[2024-05-30] MEDS ORDERED: PoTASSium chloRIDE 10MEQ SR 10 MEQ/TAB TAB.SR.24H PO PRN (06:00)
[2024-05-30 06:20] LABS: CREATININE,URINE RANDOM 124.16 mg/dL (30-135)
[2024-05-30 06:29] LABS: HEMOGLOBIN A1C 9.4 % (4.0-6.0)
[2024-05-30] MEDS: INSULIN humuLIN R 100 UNIT/ML 3ML SQ SCH (07:30)
--- NOTE | 2024-05-30 08:14 | HMCIMG ---
CT ABDOMEN/PELVIS W/O CONTRAST REASON: ABD PAIN COMPARISON: 06/26/2018 FINDINGS: Lung bases are clear. There are no focal liver lesions. There are normal-appearing kidneys.. Spleen and pancreas appear unremarkable. There has been a previous cholecystectomy. There is a moderate to large amount solid fecal material in the a sending and transverse colon which could represent constipation. Bowel loops appear otherwise unremarkable. There is no CT evidence of acute appendicitis. There is no evidence of free fluid or intraperitoneal air. There are no focal fluid collections. There are atherosclerotic changes in the aorta and iliac vessels without evidence of aneurysm. There is no retroperitoneal or pelvic lymphadenopathy. Pelvic soft tissues appear normal.. There is a periumbilical ventral hernia containing only mesenteric fat.. There is severe compression deformity of the L1 vertebral body with a retropulsed fragment, spinal canal is mildly narrowed at between 8 and 9 mm. IMPRESSION: 1. No acute finding in the abdomen or pelvis. 2. Possible constipation. 3. Vertebral plana of L1 with retropulsed fragment, there is mild narrowing of the spinal canal to between [address] was performed with one or more following dose reduction techniques: automated exposure control, adjustment of the mA and kv according to patient's size, or use of a iterative reconstruction technique.
[2024-05-30] MEDS: PANTOPrazole 40 MG TAB DR PO SCH (08:46)
[2024-05-30] MEDS: HEParin 5,000 UNIT VIAL SQ SCH (08:51)
[2024-05-30] MEDS: polyETHYLene GLYCol 3350 17 GM POWD.PACK PO ONE (09:58)
[2024-05-30] MEDS: LACTULOSE 20 GM/30 ML UDCUP PO ONE (09:58)
--- NOTE | 2024-05-30 11:39 | NUR ---
PATIENT REFUSED 2 UNITS OF INSULIN D/T HER HAVING ABDOMINAL PAIN AND NOT WANTING TO EAT. DOES NOT WANT HER BS TO DROP
[2024-05-30] MEDS ORDERED: ALBUTEROL 0.083% 2.5 MG/3 ML INH IH SCH (13:00)
--- NOTE | 2024-05-30 13:18 | PN ---
[facility] PROGRESS NOTE Date of Service: May 30, 2024 Time of Service: 12:45 SUBJECTIVE: This is a 73-year-old female patient with a past medical history of hypertension, diabetes mellitus type 2, osteoporosis, osteoarthritis, asthma and breast CA currently in remission presented to the ED with a chief complaint of generalized abdominal pain started 8 days ago. The pain is aggravated by walking. She denies nausea, vomiting, diarrhea, shortness of breath and chest pain. In the ED she was tachypneic and labs were remarkable for leukocytosis WBC 17.4 Left shift neutrophils 84.6 %. Lactic acid 2.4. Urine analysis remarkable for UTI. Patient was admitted for sepsis, electrolyte imbalance and and UTI. 05/30/24 the patient is seen and examined at the bedside today. She is complaining of generalized abdominal pain with a pain score 8/10. She denies nausea, vomiting, fever or chills. Labs are remarkable for WBC 17.4, potassium 5.2, BUN 46, creatinine 1.8 GFR 30 HB A1c 9.4%, procalcitonin 2.83, lipase 240, lactate is down to 1.5 From 2.4. Urine analysis is positive for occult blood moderate, leukocyte esterase 500, urine WBCs 26-50, WBC too numerous to count, urine sodium 26. CT abdomen and pelvis without contrast showed no acute findi ngs and possible constipation. Urine and blood culture in process. Patient has had no bowel movement since 3-4 days and we will order laxatives. She will be monitored closely. REVIEW OF SYSTEMS CONSTITUTIONAL: Denies fevers, chills, or night sweats. No unintentional weight loss reported. NEUROLOGICAL: Denies headache, amaurosis fugax, motor weakness, sensory deficit, vertigo/spinning sensation, gait abnormalities, or tremors. ENT: No hearing loss, otalgia, otorrhea, rhinitis, rhinorrhea, hoarseness, or sore throat. CARDIOVASCULAR: Denies any exertional angina, dyspnea on exertion, orthopnea, paroxysmal nocturnal dyspnea, palpitations, life-threatening arrhythmias, claudication. PULMONARY: Denies any shortness of breath, cough, phlegm/sputum, hemoptysis, pleuritic chest pain. SLEEP: Denies morning headaches, daytime somnolence or napping. Denies difficulty falling asleep, staying asleep, waking from sleep. Denies knowledge of snoring. GASTROINTESTINAL: Positive for generalized abdominal pain and constipation. Denies any type of dysphagia to either liquids or solids. Denies nausea, vomiting, pyrosis, early satiety, diarrhea, or changes in stool consistency or caliber. Denies coffee-ground emesis, hematemesis, hematochezia, or melanotic stools. GENITOURINARY: Denies frequency, urgency, nocturia, hematuria or incontinence (Storage/Irritative symptoms.) Low urinary stream, straining to void, urinary i ntermittency or hesitancy, splitting of the voiding stream, terminal dribbling. ENDOCRINOLOGIC: Denies polyuria, polydipsia, polyphagia or heat/cold intolerances. HEMATOLOGIC: Denies thrombophilia/previous clots, or coagulopathy/bleeding disorders. ONCOLOGIC: Denies personal history of malignancy. DERMATOLOGIC: Denies rashes or pruritus. PSYCHIATRIC: Denies any suicidal or homicidal ideation. Denies hallucinations. PHYSICAL EXAM GENERAL APPEARANCE: The patient is awake, alert, and oriented, in no acute cardiopulmonary distress. NEUROLOGICAL: Cranial nerves II-XII grossly intact. Motor is 5/5 in bilateral upper and lower extremities proximal to distal. No sensory deficits. HEENT: Face is symmetric. Pupils are equal and reactive. Extraocular movements are intact. NECK: Supple. No JVD. No thyromegaly. No submental, submandibular, pre- /postauricular, occipital or supraclavicular lymphadenopathy. CHEST: Normal chest expansion. No Telemetry. LUNGS: Absence of any rales, rhonchi or any wheezing. CARDIOVASCULAR: Regular. S1 and S2 normal. No appreciable rubs, murmurs or gallops. ABDOMEN: Positive for active bowel sounds Soft, nontender, and nondistended. There is no rebound, voluntary guarding, or rigidity. : Deferred. No Burt. EXTREMITIES: Non-edematous and not cyanotic. No clubbing. Good capillary refill. SKIN: No skin breakdown. Vital Signs (last 8hr) Date Time Temp Pulse Resp B/P (MAP) Pulse Ox O2 Delivery O2 Flow Rate FiO2 05/30/24 10:52 98.2 94 20 169/82 100 Room Air 05/30/24 08:06 97.9 96 20 154/67 99 Room Air 05/30/24 06:30 98.4 96 20 167/75 97 Room Air 05/30/24 06:30 Room Air* 0 21 05/30/24 05:49 98.4 89 17 145/71 97 Room Air* 0 05/30/24 05:05 88 20 LABS: Laboratory: Test 05/30/24 10:40 05/30/24 07:58 05/30/24 02:39 05/30/24 02:25 Range/Units Whole Blood Glucose 199 H 70-110 MG/DL Lactic Acid Level 1.5 0.8-2.5 mmol/L Urine Color YELLOW YELLOW Urine Appearance TURBID CLEAR Urine pH 6.0 5.0-8.0 Urine Specific [place] 1.020 1.001-1.031 Urine Protein 50 H NEGATIVE mg/dL Urine Glucose (UA) >=1000 H NEGATIVE mg/dL Urine Ketones 5 H NEGATIVE mg/dL Urine Occult Blood MODERATE H NEGATIVE Urine Nitrate NEGATIVE NEGATIVE Urine Bilirubin NEGATIVE NEGATIVE mg/dL Urine Urobilinogen 0.2 0.2-1.0 mg/dL Urine Leukocyte Esterase 500 H NEGATIVE Kevin/uL Urine RBC 26-50 H 0-1 /HPF Urine WBC TNTC H 0-1 /HPF Urine WBC Clumps (Auto) MANY 0-1 /HPF Urine Squamous Epithelial Cells RARE 0-2 /HPF Urine Non-Squamous Epithelial Cells 3 0-2 /HPF Urine Bacteria MANY None Seen /HPF Urine Hyaline Casts 2-5 H 0-1 /LPF /LPF Urine Yeast FEW None Seen /HPF Urine Random Creatinine 124.16 30-135 mg/dL Urine Random Sodium 26 L 40-220 mmol/l White Blood Count 17.4 H 4.8-10.8 K/uL Red Blood Count 3.46 L 4.00-5.50 MIL/uL Hemoglobin 10.3 L 12.0-16.0 g/dL Hematocrit 31.0 L 36-48 % Mean Corpuscular Volume 89.6 79-99 fL Mean Corpuscular Hemoglobin 29.8 27.0-33.0 pg Mean Corpuscular Hemoglobin Concent 33.2 32.0-36.0 g/dL Red Cell Distribution Width 14.6 11.0-15.5 % Platelet Count 264 130-400 K/uL Mean Platelet Volume 11.5 H 7.5-10.5 fL Immature Granulocyte % (Auto) 2.1 H 0-1 % Neutrophils (%) (Auto) 84.6 H 40.0-77.0 % Lymphocytes (%) (Auto) 7.3 L 21.0-51.0 % Monocytes (%) (Auto) 5.5 3.0-13.0 % Eosinophils (%) (Auto) 0.2 0.0-8.0 % Basophils (%) (Auto) 0.3 0.0-5.0 % Neutrophils # (Auto) 14.7 H 1.8-7.7 K/uL Lymphocytes # (Auto) 1.3 1.0-4.8 K/uL Monocytes # (Auto) 1.0 0.1-1.0 K/uL Eosinophils # (Auto) 0.04 0.00-0.70 K/uL Basophils # (Auto) 0.05 0.00-0.20 K/uL Absolute Immature Granulocyte (auto 0.37 0-1 K/uL Nucleated Red Blood Cells 0.2 H 0.0-0.19 % White Cell Morphology Comment See comments Sodium Level 129 L 136-145 mmol/L Potassium Level 5.2 H 3.5-5.1 mmol/L Chloride Level 97 L 101-111 mmol/L Carbon Dioxide Level 17 L 21-32 mmol/L Blood Urea Nitrogen 46 H 7-18 mg/dL Creatinine 1.8 H 0.5-1.0 mg/dL Glomerular Filtration Rate Calc 30 >90 mL/min Random Glucose 195 H 70-105 mg/dL Hemoglobin A1c 9.4 H 4.0-6.0 % Estimated Average Glucose (eAG) 223 H 70-126 mg/dL Total Calcium 8.0 L 8.5-10.1 mg/dL Total Bilirubin 0.6 0.2-1.0 mg/dL Aspartate Amino Transf (AST/SGOT) 36 10-37 U/L Alanine Aminotransferase (ALT/SGPT) 21 12-78 U/L Alkaline Phosphatase 146 H 50-136 U/L Troponin I High Sensitivity 13 4-50 ng/L Total Protein 7.0 6.0-8.3 g/dL Albumin 2.0 L 3.5-5.0 g/dL Lipase 240 H 16-77 U/L Procalcitonin 2.83 H 0.05-0.5 ng/mL Current Medications Medications (Trade) Dose Ordered Sig/Durga Route PRN Reason Start Time Stop Time Status Last Admin Dose Admin Albuterol Sulfate (Proventil 0.083% 2.5mg/3ml) 10 mg ONCE IH 05/30/24 04:30 06/29/24 04:29 05/30/24 05:18 10 MG Atorvastatin Calcium (LIPItor 40MG) 40 mg DAILY PO 05/31/24 09:00 06/30/24 08:59 Brimonidine Tartrate (Alphagan P) 0.2ML OU BID BID OU 05/30/24 21:00 06/29/24 20:59 Gabapentin (NEURontin 100 mg CAP) 100 mg TID PO 05/30/24 14:00 06/29/24 13:59 Heparin Sodium (Porcine) (HEParin 5,000 UNIT VIAL) 5,000 unit BID SQ 05/30/24 09:00 06/29/24 08:59 05/30/24 08:51 5,000 UNIT Hydralazine HCl (APRESOLine 20MG INJ) 10 mg Q6H PRN IV For:SBP above 160;DBP above 90 05/30/24 05:30 06/29/24 05:29 Insulin Human Regular (humuLIN R 100 UNIT/ML 3ML) INSULIN SLIDING SCAL... ACHS SQ 05/30/24 07:30 06/29/24 07:29 Lactated Ringer's 1,000 ml @ 60 mls/hr [id number] IV 05/30/24 05:30 06/29/24 05:29 05/30/24 05:42 60 MLS/HR Latanoprost (Xalatan) 1 DROP OU HS HS OU 05/30/24 21:00 06/29/24 20:59 Losartan Potassium (CozAAR 100MG TAB) 100 mg DAILY PO 05/31/24 09:00 06/30/24 08:59 Magnesium Sulfate 50 ml @ 0 mls/hr PROTOCOL PRN IV hypomagnesemia 05/30/24 05:30 06/29/24 05:29 Miscellaneous Medication (Albuterol Sulfate (Ventolin Hfa)) 2 puff Q6HPRN PRN IH wheezing 05/30/24 13:00 06/29/24 12:59 UNV Morphine Sulfate (morPHINE 2MG SYG) 2 mg ONCE STAT IVP 05/30/24 02:21 05/30/24 02:23 DC 05/30/24 02:30 2 MG Morphine Sulfate (morPHINE 2MG SYG) 2 mg Q4H PRN IVP SEVERE PAIN (7-10) 05/30/24 05:30 06/06/24 05:29 05/30/24 05:52 2 MG Ondansetron HCl (zoFRAN 4MG INJ) 4 mg Q6H PRN IV NAUSEA/VOMITING 05/30/24 05:30 06/29/24 05:29 Pantoprazole Sodium (PROTonix 40MG TAB) 40 mg DAILY PO 05/30/24 09:00 06/29/24 08:59 05/30/24 08:46 40 MG Piperacillin Sod/ Tazobactam Sod (Zosyn 3.375gm+NS 50ml) 3.375 gm ONCE STAT IVPB 05/30/24 02:43 05/30/24 02:47 DC 05/30/24 03:03 3.375 GM Piperacillin Sod/ Tazobactam Sod (Zosyn 3.375gm+NS 50ml) 3.375 gm Q12H IV 05/30/24 14:30 06/09/24 14:29 Polyethylene Glycol (MIRalax 3350 17 GM POWD.PACK) 17 gm DAILY PO 05/31/24 09:00 06/30/24 08:59 Potassium Chloride 100 ml @ 100 mls/hr AD PRN IV POTASSIUM PROTOCOL 05/30/24 05:30 06/29/24 05:29 Potassium Chloride (K-Dur 10meq Sr Tab) 10 meq AD PRN PO POTASSIUM PROTOCOL 05/30/24 06:00 06/29/24 05:59 Potassium Chloride (KCl 10% Elixir 20meq/15ml) 10 meq AD PRN PO POTASSIUM PROTOCOL 05/30/24 05:30 06/29/24 05:29 Vancomycin HCl (Vancomycin 1g/ 250ml Kit) 1 gm ONCE STAT IV 05/30/24 02:43 05/30/24 02:47 DC 05/30/24 03:50 1 GM DIAGNOSTICS / RADIOLOGY: [address] [address] IMAGING REPORT Signed PATIENT: MARIELA SAGE MR#: [id number] : 1950 SEX: F AGE: 73 LOCATION: 4DH ORDER 2 STATUS: ADM IN REPORT#: [id number] SERVICE 2 REASON: ABD PAIN ORDERING PHYSICIAN: MOJGAN MENON MD PROCEDURE: ABD PEL WO - CT ABDOMEN/PELVIS W/O CONTRAST CT ABDOMEN/PELVIS W/O CONTRAST REASON: ABD PAIN COMPARISON: 06/26/2018 FINDINGS: Lung bases are clear. There are no focal liver lesions. There are normal-appearing kidneys.. Spleen and pancreas appear unremarkable. There has been a previous cholecystectomy. There is a moderate to large amount solid fecal material in the a sending and transverse colon which could represent constipation. Bowel loops appear otherwise unremarkable. There is no CT evidence of acute appendicitis. There is no evidence of free fluid or intraperitoneal air. There are no focal fluid collections. There are atherosclerotic changes in the aorta and iliac vessels without evidence of aneurysm. There is no retroperitoneal or pelvic lymphadenopathy. Pelvic soft tissues appear normal.. There is a periumbilical ventral hernia containing only mesenteric fat.. There is severe compression deformity of the L1 vertebral body with a retropulsed fragment, spinal canal is mildly narrowed at between 8 and 9 mm. IMPRESSION: 1. No acute finding in the abdomen or pelvis. 2. Possible constipation. 3. Vertebral plana of L1 with retropulsed fragment, there is mild narrowing of the spinal canal to between [address] was performed with one or more following dose reduction techniques: automated exposure control, adjustment of the mA and kv according to patient's size, or use of a iterative reconstruction technique. DICTATED BY: SHAZIA ELLIS MD DATE: 05/30/24807 ELECTRONICALLY SIGNED BY: SHAZIA ELLIS MD DATE: 05/30/24813 ASSESSMENT: Sepsis secondary to UTI POA Urinary Tract infection POA Acute kidney injury POA Electrolyte imbalance (hyponatremia, hyperkalemia)POA Leukocytosis POA Elevated Lipase POA Diabetes mellitus type 2 with the A1c 9.4% Hypertension Hyperlipidemia History of breast CA currently in remission PLAN: We will continue to monitor patient on medical/surgical floor. Sepsis secondary to Urinary Tract infection POA Urine analysis is positive for occult blood, leukocyte esterase 500, urine RBCs 26-50, WBCs too numerous to count and urine sodium 26. Continue Zosyn IV Q12H. CT abdomen and pelvis without contrast showed no acute findings and possible constipation. Mild narrowing of the spinal canal. Urine culture pending. Will obtain xray KUB. Procalcitonin 2.83. Acute kidney injury POA Electrolyte imbalance (hyponatremia, hyperkalemia)POA BUN 46 and creatinine 1.8. Baseline creatinine 1-1.1. Avoid Nephrotoxic drugs. Continue LR @60 ml/hrs. Na 129 and K 5.2. Will monitor electrolytes closely. Leukocytosis POA WBC is 17.4. Elevated Lipase POA Lipase level 240 and continue IV hydration. Diabetes mellitus type 2 with the A1c 9.4% A1c 9.4% Monitor blood glucose a.c. and HS. Follow insulin sliding scale. Hypoglycemia protocol. Hypertension Discontinued Losartan due to hyperkalemia and will start on Norvasc 5 mg. Give hydralazine IV as needed if SBP above 170 mm hg. Hyperlipidemia We will resume her home medication. Hypokalemia and hypomagnesemia protocol in place. Continue GI and DVT prophylaxis. PRN medications for pain, fever, nausea and vomiting are added. ATTESTATION BY PHYSICIAN I have seen and examined the patient. I reviewed the documentation, medical decision making, and treatment plan as noted by the resident provider above. I agree with the findings and plan of care. Beverly Delgado MD, KRUPALI P MD May 30, 2024 13:18
[2024-05-30] MEDS ORDERED: ALBUTEROL 0.083% 2.5 MG/3 ML INH IH PRN (14:00)
[2024-05-30] MEDS: GABApentin 100 MG CAPSULE PO SCH (14:14)
[2024-05-30] MEDS: ZOSYN 3.375GM +NS 50ML IV SCH (14:14)
--- NOTE | 2024-05-30 14:16 | HMCIMG ---
ABD 1VW REASON: r/o obstruction FINDINGS: Single image of the abdomen was obtained. There is mild gaseous distention of the colon. Small bowel gas pattern appears unremarkable. Bones and soft tissues appear normal. IMPRESSION: 1. Nonspecific bowel gas pattern.
[2024-05-30] MEDS ORDERED: SUCCINYLCHOLINE CHLORIDE 20 MG/ML 10 ML VIAL IVP ONE (14:48)
[2024-05-30] MEDS ORDERED: CACL 1GM SYG IVP ONE (14:52)
--- NOTE | 2024-05-30 16:11 | NUR ---
PAIN Patient complains of pain in abdomen /10. PRN morphine medication provided to patient for primary nurse Clari [employer]PER[employer]ING [employer] per unit policy. VSS and aox4.
--- NOTE | 2024-05-30 16:15 | NUR ---
PAIN Patient complains of pain in abdomen 03/11. PRN morphine medication provided to patient for primary nurse Hina TAYLOR per unit policy. VSS and aox4. Addendum: 05/30/24 at 1617 by KELLY SILVA RN RN error. note above entered by Kelly LAWSON Addendum: 05/30/24 at 1619 by HINA ALEJANDRO LVN LVN error. note above entered by Kelly LAWSON
[2024-05-30] MEDS: LATANOPROST 2.5 ML DROPS OU SCH (19:32)
[2024-05-30] MEDS: BRIMONIDINE TARTRATE 0.2% 5 ML BOTTLE OU SCH (19:32)
[2024-05-30] MEDS: SIMETHICONE 80 MG TAB.CHEW PO ONE (20:08)
[2024-05-31] VITALS (7 sets, daily range): BP systolic 126–148; BP diastolic 64–73; PULSE 92–106; RESP 18–22; TEMP 98.1–98.9; O2SAT 97–98
[2024-05-31] MEDS: LIDOCAINE 4% ADH..PATCH TP ONE (02:12)
--- NOTE | 2024-05-31 02:59 | NUR ---
nursing pm note patient alert and oriented times 4. plan of care discussed with her and her daughter. they verbalized understanding. called lourdes espinoza for patient's abdominal pain. she ordered simethicone once for colon gas patterns. I gave the patient prune juice to stimulate her bowels. she verbalizes right hip pain from a fall a week ago. Lourdes Espinoza, real estate coordinator, ordered lidocaine patch. The patient has slept about 3 hours tonight. Her daughter wants to take her to the restroom every time she needs to void. We encouraged her to call us for help. They say "okay" but do not call much. We round frequently every hour. call light within reach, bed alarm on, 2 side rails up. will continue to monitor patient.
[2024-05-31 05:03] LABS: BASOPHILS # (AUTO) 0.08 K/uL (0.00-0.20); BASOPHILS % (AUTO) 0.4 % (0.0-5.0); EOSINOPHILS # (AUTO) 0.03 K/uL (0.00-0.70); EOSINOPHILS % (AUTO) 0.2 % (0.0-8.0); IMMATURE GRANULOCYTE ABSOLUTE 0.39 K/uL (0-1); LYMPHOCYTES # (AUTO) 0.5 K/uL (1.0-4.8); LYMPHOCYTES % (AUTO) 2.7 % (21.0-51.0); MEAN CORPUSCULAR HEMOGLOBIN 30.1 pg (27.0-33.0); MEAN CORPUSCULAR HGB CONC 34.1 g/dL (32.0-36.0); MEAN CORPUSCULAR VOLUME 88.4 fL (79-99); MONOCYTES # (AUTO) 0.9 K/uL (0.1-1.0); MONOCYTES % (AUTO) 4.8 % (3.0-13.0); NEUTROPHILS # (AUTO) 17.2 K/uL (1.8-7.7); NEUTROPHILS % (AUTO) 89.9 % (40.0-77.0); PLATELET COUNT (AUTO) 215 K/uL (130-400); RED BLOOD CELL COUNT(AUTO) 3.62 MIL/uL (4.00-5.50); RED CELL DISTRIBUTION WIDTH 14.6 % (11.0-15.5); WHITE BLOOD COUNT (AUTO) 19.1 K/uL (4.8-10.8)
[2024-05-31 05:12] LABS: CREATININE 1.2 mg/dL (0.5-1.0); PHOSPHORUS 2.9 mg/dL (2.5-4.9); POTASSIUM 4.6 mmol/L (3.5-5.1)
[2024-05-31] MEDS: polyETHYLene GLYCol 3350 17 GM POWD.PACK PO SCH (08:47)
[2024-05-31] MEDS: amLODIPine 5 MG TAB PO SCH (08:47)
[2024-05-31] MEDS: atorVAStatin 40 MG TABLET PO SCH (08:47)
--- NOTE | 2024-05-31 08:50 | HMCIMG ---
HIP BILAT 2VW HISTORY: Status post fall COMPARISON: None TECHNIQUE: 2 images of bilateral hips were obtained. FINDINGS: There is no acute displaced fracture or dislocation. Bilateral hips joint space narrowing are seen. Degenerative changes are seen. IMPRESSION: 1. Findings as described above.
[2024-05-31] MEDS ORDERED: LoSARTan 100 MG TABLET PO SCH (09:00)
--- NOTE | 2024-05-31 10:40 | PN ---
[facility] PROGRESS NOTE Date of Service: May 31, 2024 Time of Service: 10:21 SUBJECTIVE: This is a 73-year-old female patient with a past medical history of hypertension, diabetes mellitus type 2, osteoporosis, osteoarthritis, asthma and breast CA currently in remission presented to the ED with a chief complaint of generalized abdominal pain started 8 days ago. The pain is aggravated by walking. She denies nausea, vomiting, diarrhea, shortness of breath and chest pain. In the ED she was tachypneic and labs were remarkable for leukocytosis WBC 17.4 Left shift neutrophils 84.6 %. Lactic acid 2.4. Urine analysis remarkable for UTI. Patient was admitted for sepsis, electrolyte imbalance and and UTI. 05/30/24 the patient is seen and examined at the bedside today. She is complaining of generalized abdominal pain with a pain score 8/10. She denies nausea, vomiting, fever or chills. Labs are remarkable for WBC 17.4, potassium 5.2, BUN 46, creatinine 1.8 GFR 30 HB A1c 9.4%, procalcitonin 2.83, lipase 240, lactate is down to 1.5 From 2.4. Urine analysis is positive for occult blood moderate, leukocyte esterase 500, urine WBCs 26-50, WBC too numerous to count, urine sodium 26. CT abdomen and pelvis without contrast showed no acute findi ngs and possible constipation. Urine and blood culture in process. Patient has had no bowel movement since 3-4 days and we will order laxatives. She will be monitored closely. 05/31/24 The patient is seen and examined at the bedside today.Vitals increased pulse rate 103, sinus tachycardia. She is complaining of nausea and severe, constant, diffuse abdominal pain 10/10 and bilateral hip pain, prominent on right side. She did not have a bowel movement yet. She denies fever, headache, chills, vomiting, shortness of breath, chest pain, palpitations, diarrhea, difficulty in urination. Remarkable lab results WBC increased from 17.4-19.1, low hemoglobin 10.9, low sodium 135. BUN decreased from 46 to 27 and creatinine 1.8 to 1.2. Abdominal x-ray resulted in mild gaseous distention of the colon. Bilateral hip x-ray resulted in no acute displaced fracture or dislocation. Blood Cultures resulted in Gram-positive rods. Urine Culture resulted in Gram- negative rods. REVIEW OF SYSTEMS CONSTITUTIONAL: Denies fevers, chills, or night sweats. No unintentional weight loss reported. Generalized weakness, bilateral hip pain NEUROLOGICAL: Denies headache, amaurosis fugax, motor weakness, sensory deficit, vertigo/spinning sensation, gait abnormalities, or tremors. ENT: No hearing loss, otalgia, otorrhea, rhinitis, rhinorrhea, hoarseness, or sore throat. CARDIOVASCULAR: Denies any exertional angina, dyspnea on exertion, orthopnea, paroxysmal nocturnal dyspnea, palpitations, life-threatening arrhythmias, claudication. PULMONARY: Denies any shortness of breath, cough, phlegm/sputum, hemoptysis, pleuritic chest pain. SLEEP: Denies morning headaches, daytime somnolence or napping. Denies di fficulty falling asleep, staying asleep, waking from sleep. Denies knowledge of snoring. GASTROINTESTINAL: Positive for constant severe and diffuse abdominal pain and constipation. Denies any type of dysphagia to either liquids or solids. Denies nausea, vomiting, pyrosis, early satiety, diarrhea, or changes in stool consistency or caliber. Denies coffee-ground emesis, hematemesis, hematochezia, or melanotic stools. GENITOURINARY: Denies frequency, urgency, nocturia, hematuria or incontinence (Storage/Irritative symptoms.) Low urinary stream, straining to void, urinary intermittency or hesitancy, splitting of the voiding stream, terminal dribbling. ENDOCRINOLOGIC: Denies polyuria, polydipsia, polyphagia or heat/cold intolerances. HEMATOLOGIC: Denies thrombophilia/previous clots, or coagulopathy/bleeding disorders. ONCOLOGIC: Denies personal history of malignancy. DERMATOLOGIC: Denies rashes or pruritus. PSYCHIATRIC: Denies any suicidal or homicidal ideation. Denies hallucinations. PHYSICAL EXAM GENERAL APPEARANCE: The patient is awake, alert, and oriented, in no acute cardiopulmonary distress. NEUROLOGICAL: Cranial nerves II-XII grossly intact. Motor is 5/5 in bilateral upper and lower extremities proximal to distal. No sensory deficits. HEENT: Face is symmetric. Pupils are equal and reactive. Extraocular movements are intact. NECK: Supple. No JVD. No thyromegaly. No submental, submandibular, pre- /postauricular, occipital or supraclavicular lymphadenopathy. CHEST: Normal chest expansion. No Telemetry. LUNGS: Absence of any rales, rhonchi or any wheezing. CARDIOVASCULAR: Regular. S1 and S2 normal. No appreciable rubs, murmurs or gallops. ABDOMEN: Positive for active bowel sounds Soft, nontender, and nondistended. There is no rebound, voluntary guarding, or rigidity. : Deferred. No Burt. EXTREMITIES: Non-edematous and not cyanotic. No clubbing. Good capillary refill. SKIN: No skin breakdown. Vital Signs (last 8hr) Date Time Temp Pulse Resp B/P (MAP) Pulse Ox O2 Delivery O2 Flow Rate FiO2 05/31/24 08:15 98.4 103 18 126/68 97 Room Air 05/31/24 08:00 97 Room Air* 0 21 05/31/24 05:14 99.0 106 22 136/64 97 Room Air LABS: Laboratory: Test 05/31/24 05:12 05/31/24 04:44 05/30/24 02:39 05/30/24 02:25 Range/Units Whole Blood Glucose 151 H 70-110 MG/DL White Blood Count 19.1 H 4.8-10.8 K/uL Red Blood Count 3.62 L 4.00-5.50 MIL/uL Hemoglobin 10.9 L 12.0-16.0 g/dL Hematocrit 32.0 L 36-48 % Mean Corpuscular Volume 88.4 79-99 fL Mean Corpuscular Hemoglobin 30.1 27.0-33.0 pg Mean Corpuscular Hemoglobin Concent 34.1 32.0-36.0 g/dL Red Cell Distribution Width 14.6 11.0-15.5 % Platelet Count 215 130-400 K/uL Mean Platelet Volume 12.1 H 7.5-10.5 fL Immature Granulocyte % (Auto) 2.0 H 0-1 % Neutrophils (%) (Auto) 89.9 H 40.0-77.0 % Lymphocytes (%) (Auto) 2.7 L 21.0-51.0 % Monocytes (%) (Auto) 4.8 3.0-13.0 % Eosinophils (%) (Auto) 0.2 0.0-8.0 % Basophils (%) (Auto) 0.4 0.0-5.0 % Neutrophils # (Auto) 17.2 H 1.8-7.7 K/uL Lymphocytes # (Auto) 0.5 L 1.0-4.8 K/uL Monocytes # (Auto) 0.9 0.1-1.0 K/uL Eosinophils # (Auto) 0.03 0.00-0.70 K/uL Basophils # (Auto) 0.08 0.00-0.20 K/uL Absolute Immature Granulocyte (auto 0.39 0-1 K/uL Nucleated Red Blood Cells 1.0 H 0.0-0.19 % Sodium Level 135 L 136-145 mmol/L Potassium Level 4.6 3.5-5.1 mmol/L Chloride Level 105 101-111 mmol/L Carbon Dioxide Level 15 L 21-32 mmol/L Blood Urea Nitrogen 27 H 7-18 mg/dL Creatinine 1.2 H 0.5-1.0 mg/dL Glomerular Filtration Rate Calc 48 >90 mL/min Random Glucose 153 H 70-105 mg/dL Lactic Acid Level 1.7 0.8-2.5 mmol/L Total Calcium 8.3 L 8.5-10.1 mg/dL Phosphorus Level 2.9 2.5-4.9 mg/dL Magnesium Level 2.00 1.80-2.40 mg/dL Urine Color YELLOW YELLOW Urine Appearance TURBID CLEAR Urine pH 6.0 5.0-8.0 Urine Specific Randolph 1.020 1.001-1.031 Urine Protein 50 H NEGATIVE mg/dL Urine Glucose (UA) >=1000 H NEGATIVE mg/dL Urine Ketones 5 H NEGATIVE mg/dL Urine Occult Blood MODERATE H NEGATIVE Urine Nitrate NEGATIVE NEGATIVE Urine Bilirubin NEGATIVE NEGATIVE mg/dL Urine Urobilinogen 0.2 0.2-1.0 mg/dL Urine Leukocyte Esterase 500 H NEGATIVE Kevin/uL Urine RBC 26-50 H 0-1 /HPF Urine WBC TNTC H 0-1 /HPF Urine WBC Clumps (Auto) MANY 0-1 /HPF Urine Squamous Epithelial Cells RARE 0-2 /HPF Urine Non-Squamous Epithelial Cells 3 0-2 /HPF Urine Bacteria MANY None Seen /HPF Urine Hyaline Casts 2-5 H 0-1 /LPF /LPF Urine Yeast FEW None Seen /HPF Urine Osmolality 426 50-1200 mOsm/kg Urine Random Creatinine 124.16 30-135 mg/dL Urine Random Sodium 26 L 40-220 mmol/l White Cell Morphology Comment See comments Hemoglobin A1c 9.4 H 4.0-6.0 % Estimated Average Glucose (eAG) 223 H 70-126 mg/dL Total Bilirubin 0.6 0.2-1.0 mg/dL Aspartate Amino Transf (AST/SGOT) 36 10-37 U/L Alanine Aminotransferase (ALT/SGPT) 21 12-78 U/L Alkaline Phosphatase 146 H 50-136 U/L Troponin I High Sensitivity 13 4-50 ng/L Total Protein 7.0 6.0-8.3 g/dL Albumin 2.0 L 3.5-5.0 g/dL Lipase 240 H 16-77 U/L Procalcitonin 2.83 H 0.05-0.5 ng/mL Current Medications Medications (Trade) Dose Ordered Sig/Durga Route PRN Reason Start Time Stop Time Status Last Admin Dose Admin Albuterol Sulfate (Proventil 0.083% 2.5mg/3ml) 2.5 mg Q6H PRN IH WHEEZING 05/30/24 14:00 06/29/24 12:59 Albuterol Sulfate (Proventil 0.083% 2.5mg/3ml) 2.5 mg Q6HPRN 05/30/24 13:00 05/30/24 13:55 DC Albuterol Sulfate (Proventil 0.083% 2.5mg/3ml) 10 mg ONCE IH 05/30/24 04:30 05/30/24 12:45 DC 05/30/24 05:18 10 MG Amlodipine Besylate (NorvASC 5MG TAB) 5 mg DAILY PO 05/31/24 09:00 06/30/24 08:59 05/31/24 08:47 5 MG Atorvastatin Calcium (LIPItor 40MG) 40 mg DAILY PO 05/31/24 09:00 06/30/24 08:59 05/31/24 08:47 40 MG Brimonidine Tartrate (Alphagan P) 0.2ML OU BID BID OU 05/30/24 21:00 06/29/24 20:59 05/30/24 19:32 1 ML Gabapentin (NEURontin 100 mg CAP) 100 mg TID PO 05/30/24 14:00 06/29/24 13:59 05/31/24 08:47 100 MG Heparin Sodium (Porcine) (HEParin 5,000 UNIT VIAL) 5,000 unit BID SQ 05/30/24 09:00 06/29/24 08:59 05/31/24 08:53 5,000 UNIT Hydralazine HCl (APRESOLine 20MG INJ) 10 mg Q6H PRN IV For:SBP above 160;DBP above 90 05/30/24 05:30 06/29/24 05:29 Insulin Human Regular (humuLIN R 100 UNIT/ML 3ML) INSULIN SLIDING SCAL... ACHS SQ 05/30/24 07:30 06/29/24 07:29 05/30/24 19:46 4 UNIT Lactated Ringer's 1,000 ml @ 60 mls/hr [id number] IV 05/30/24 05:30 06/29/24 05:29 05/31/24 00:11 60 MLS/HR Latanoprost (Xalatan) 1 DROP OU HS HS OU 05/30/24 21:00 06/29/24 20:59 05/30/24 19:32 1 DROP Losartan Potassium (CozAAR 100MG TAB) 100 mg DAILY PO 05/31/24 09:00 05/30/24 13:53 DC Magnesium Sulfate 50 ml @ 0 mls/hr PROTOCOL PRN IV hypomagnesemia 05/30/24 05:30 06/29/24 05:29 Morphine Sulfate (morPHINE 2MG SYG) 2 mg ONCE STAT IVP 05/30/24 02:21 05/30/24 02:23 DC 05/30/24 02:30 2 MG Morphine Sulfate (morPHINE 2MG SYG) 2 mg Q4H PRN IVP SEVERE PAIN (7-10) 05/30/24 05:30 06/06/24 05:29 05/30/24 16:06 2 MG Ondansetron HCl (zoFRAN 4MG INJ) 4 mg Q6H PRN IV NAUSEA/VOMITING 05/30/24 05:30 06/29/24 05:29 Pantoprazole Sodium (PROTonix 40MG TAB) 40 mg DAILY PO 05/30/24 09:00 06/29/24 08:59 05/31/24 08:47 40 MG Piperacillin Sod/ Tazobactam Sod (Zosyn 3.375gm+NS 50ml) 3.375 gm ONCE STAT IVPB 05/30/24 02:43 05/30/24 02:47 DC 05/30/24 03:03 3.375 GM Piperacillin Sod/ Tazobactam Sod (Zosyn 3.375gm+NS 50ml) 3.375 gm Q12H IV 05/30/24 14:30 06/09/24 14:29 05/31/24 00:23 3.375 GM Polyethylene Glycol (MIRalax 3350 17 GM POWD.PACK) 17 gm DAILY PO 05/31/24 09:00 06/30/24 08:59 05/31/24 08:47 17 GM Potassium Chloride 100 ml @ 100 mls/hr AD PRN IV POTASSIUM PROTOCOL 05/30/24 05:30 06/29/24 05:29 Potassium Chloride (K-Dur 10meq Sr Tab) 10 meq AD PRN PO POTASSIUM PROTOCOL 05/30/24 06:00 06/29/24 05:59 Potassium Chloride (KCl 10% Elixir 20meq/15ml) 10 meq AD PRN PO POTASSIUM PROTOCOL 05/30/24 05:30 06/29/24 05:29 Vancomycin HCl (Vancomycin 1g/ 250ml Kit) 1 gm ONCE STAT IV 05/30/24 02:43 05/30/24 02:47 DC 05/30/24 03:50 1 GM DIAGNOSTICS / RADIOLOGY: PROCEDURE: ABD 1VW - ABD 1VW ABD 1VW REASON: r/o obstruction FINDINGS: Single image of the abdomen was obtained. There is mild gaseous distention of the colon. Small bowel gas pattern appears unremarkable. Bones and soft tissues appear normal. IMPRESSION: 1. Nonspecific bowel gas pattern. PROCEDURE: HIPS B 2V - HIP BILAT 2VW HIP BILAT 2VW HISTORY: Status post fall COMPARISON: None TECHNIQUE: 2 images of bilateral hips were obtained. FINDINGS: There is no acute displaced fracture or dislocation. Bilateral hips joint space narrowing are seen. Degenerative changes are seen. IMPRESSION: 1. Findings as described above. ASSESSMENT: Sepsis secondary to UTI POA Gram-positive septicemia, POA Urinary Tract infection POA, Gram-negative rods Acute kidney injury POA , improving Electrolyte imbalance (hyponatremia, hyperkalemia)POA Leukocytosis POA Elevated Lipase POA Diabetes mellitus type 2 with the A1c 9.4% chronic anemia, POA Obesity POA Hypertension Hyperlipidemia History of breast CA currently in remission PLAN: Continue to monitor patient on medical/surgical floor. Sepsis secondary to Urinary Tract infection POA Urine analysis is positive for occult blood, leukocyte esterase 500, urine RBCs 26-50, WBCs too numerous to count and urine sodium 26. Urine culture resulted in Gram-negative rods, sensitivities pending Procalcitonin 2.83. We will stop Zosyn and start Rocephin1 g IV b.id Gram positive septicemia, POA We will start the patient on vancomycin protocol We will consult ID in view of polymicrobial sepsis We will consult BIS in view of polymicrobial sepsis Acute kidney injury POA Electrolyte imbalance (hyponatremia, hyperkalemia)POA Avoid Nephrotoxic drugs. Continue LR @60 ml/hrs. We will monitor electrolytes closely and replace them as per protocol Elevated Lipase POA Lipase level 240 and continue IV hydration. Diabetes mellitus type 2 with the A1c 9.4% A1c 9.4% Monitor blood glucose a.c. and HS. Follow insulin sliding scale. Hypoglycemia protocol. Hypertension Continue Norvasc 5 mg. Give hydralazine IV as needed if SBP above 170 mm hg. Hyperlipidemia Continue atorvastatin 40 mg Continue GI and DVT prophylaxis. PRN medications for pain, fever, nausea and vomiting are added. We will consult Physical therapy in view of generalized weakness and inability to walk as per her baseline ATTESTATION BY PHYSICIAN I have seen and examined the patient. I reviewed the documentation, medical dec ision making, and treatment plan as noted by the resident above. I agree with the findings and plan of care. Beverly Delgado MD, PRIYANKA MD May 31, 2024 10:40
--- NOTE | 2024-05-31 14:10 | NUR ---
RECEIVED CALL FROM LAB REGARDING +BLOOD CX. DR FERNÁNDEZ NOTIFIED. NEW ORDERS RECEIVED AND IN PLACE.
[2024-05-31] MEDS ORDERED: DIATR MEGLU/DIATRIZOATE SODIUM 30 ML BOTTLE ONE (15:01)
--- NOTE | 2024-05-31 15:01 | NUR ---
PT on hold/ Per RN pt is c/o severe abdominal pain and constipation. Pt will be having CT scan performed. PT to f/u tomorrow AM.
--- NOTE | 2024-05-31 15:19 | NUR ---
PATIENT PREPPING WITH ORAL CONTRAST FOR CT EXAM.
[2024-05-31] MEDS: cefTRIAXone 1G VIAL IVPB SCH (15:29)
[2024-05-31] MEDS: LACTULOSE 20 GM/30 ML UDCUP PO ONE (15:30)
[2024-05-31] MEDS ORDERED: VANCOMYCIN PROTOCOL PER PHARMACY IV SCH (15:30)
[2024-05-31] MEDS: VANCOMYCIN 1.25 GM/250 ML BAG 250 ML IV SCH (16:42)
[2024-05-31] MEDS: 0.9%NACL 1000ML 1,000 ML IV ONE (17:51)
[2024-05-31] MEDS: SODIUM BICARB 50MEQ 50ML VIAL IV ONE (17:51)
[2024-05-31] MEDS: 0.9%NACL 1000ML 1,000 ML IV SCH (18:27)
--- NOTE | 2024-05-31 19:01 | HMCIMG ---
CT ABDOMEN WITHOUT CONTRAST. CT PELVIS WITHOUT CONTRAST. INDICATION: Severe abdominal pain TECHNIQUE: Routine transaxial imaging using 5 mm slice thickness through the abdomen and pelvis without the administration of IV contrast. Thin slice reconstructions are also provided. Coronal and sagittal reformatted images acquired for interpretation. Oral contrast was administered. CT was performed with one or more of the following dose reduction techniques: Automated exposure control, adjustment of the mA and/or kV according to patient size, or use of iterative reconstruction technique. COMPARISON: None FINDINGS: ON NONCONTRAST IMAGING: ABDOMEN: Heart size is normal. Coronary arterial wall calcific plaque noted. Incompletely imaged 9 mm right lung nodule. No abnormal renal calcifications, hydronephrosis, perinephric inflammation, or proximal hydroureter detected. Small simple cyst upper pole right kidney. The liver is normal in size and smooth in contour without biliary duct dilation. The spleen is normal in size and attenuation. The gallbladder his absent. The pancreas appears normal without pancreatic duct dilation. Chronic bilateral adrenal gland calcifications.. No significant abdominal, retrocrural or retroperitoneal adenopathy noted. No evidence for intra-abdominal free air or organized fluid collection. Mild calcific plaque is noted along the abdominal aortic and iliac vessel cotto without aneurysmal dilation. Small fat-containing nonobstructing left periumbilical hernia. PELVIS: No abnormal calcifications within the urinary bladder or distal ureters. No evidence for free air or organized pelvic fluid collection. No significant pelvic adenopathy detected. Moderate proximal to mid colonic stool burden. Terminal ileum appears normal. The appendix it is not well-visualized. Uterus is absent. L1 vertebral plana with chronic retropulsion contributing to mild to moderate central canal stenosis. IMPRESSION: 1. Incompletely imaged 9 mm right lung nodule. 2. No evidence for any acute intra-abdominal or pelvic process. 3. Small fat-containing nonobstructing left periumbilical hernia. 4. Additional minor findings, postsurgical changes, and pertinent negatives as reported.
[2024-05-31 19:49] LABS: ABG BASE EXCESS -7.2 mmol/L (-2.0-3.0); ABG HCO3 15.2 mmol/L (21.0-28.0); ABG OXYGEN SATURATION 97.7 % (94.0-98.0); ABG PCO2 24 mmHg (32-45); ABG PH 7.419 (7.350-7.450); PO2, ARTERIAL BG 99.3 mmHg (83.0-108.0); VENT MODE, BG RA (ROOM AIR)
--- NOTE | 2024-05-31 20:19 | CONS ---
[facility] CONSULTATION NOTE Date Patient Seen: May 31, 2024 Time of Visit: 20:19 Supervising Physician: Dr. Terence Porras Reason for Consultation: "Polymicrobial sepsis" Primary Care Physician: Admitting team: [facility] hospitalist team Outpatient Specialists: Inpatient Consults: BIS, critical Care team Infectious disease physician/team PROBLEM LIST: Acute sepsis without septic shock, blood cultures on 06/01/2024 showed no growth after 48 hours. Acute complicated cystitis, POA, Gram-negative rods Intractable abdominal pain, POA Acute on chronic constipation, POA Acute hip pain: Bilateral hips joint space narrowing and degenerative changes 9 mm right lung nodule, incidental finding Small fat-containing nonobstructing left periumbilical hernia. Gram-positive septicemia, POA Acute kidney injury POA , improving Electrolyte derangement (hyponatremia, hyperkalemia), POA Leukocytosis POA Elevated Lipase POA Uncontrolled diabetes mellitus type 2 with the A1c 9.4% Chronic anemia, POA Obesity, BMI 32.1 POA Hypertension Hyperlipidemia History of breast CA currently in remission HPI: Ms. Stevens is a 73-year-old female who presented to [facility] ED on 05/30/2024 for evaluation of abdominal pain onset 8 days ago [employer]. On arrival to ED the patient reported the pain was a constant stabbing pain, located on right lower lateral quadrant. Patient believed the pain is being caused by a chronic hernia that she has. Symptoms are aggravated with the walking. There was no alleviating factors. On arrival to ED the patient's WBCs 17.4, left shift neutrophils 84.6%, creatinine 1.8, GFR 30, glucose 195 mg/dL, lactic acid 2.4, urinalysis positive for leukocyte esterase and WBCs too many to count under high-powered microscopy. The patient was admitted by the [facility] team with a diagnosis of sepsis and UTI. On 05/31/2024 [facility] hospitalist team requested BIS, Critical Care team to be consulted for "polymicrobial sepsis." Per chart review patient was tachycardic at 103 bpm, and was complaining of nausea, and severe constant diffuse abdominal pain 10/10 and bilateral hip pain, prominent on right side. Patient had not had a bowel movement yet. Patient has been afebrile, no vomiting, denied shortness of breath, chest pain, palpitations, diarrhea, difficulty with urination. WBCs increased from 17.4 to 19.1. At that time blood cultures resulted in Gram- positive rods. Urine culture resulted in Gram-negative rods. Abdominal x-ray on 05/30/2024: mild gaseous distention of the colon. Small bowel gas pattern appears unremarkable. Bilateral hip x-ray: There is no acute displaced fracture or dislocation. Bilateral hips joint space narrowing are seen. Degenerative changes are seen. CT abdomen and pelvis without contrast: 1. Incompletely imaged 9 mm right lung nodule. 2. No evidence for any acute intra-abdominal or pelvic process. 3. Small fat-containing nonobstructing left periumbilical hernia. 4. Additional minor findings, postsurgical changes, and pertinent negatives as reported. Antibiotics were adjusted by ID. I went to assess the patient at bedside in room 424. Daughter was at bedside. Patient's breathing was even and unlabored. Patient was sitting on her recliner and appeared very uncomfortable. Patient reported she had not had a bowel movement since 05/30/2024, and reported severe diffuse pain. Order was placed for glycerin suppositories, Fleet enema, Reglan 10 mg IV, and simethicone. I informed them of labs, diagnostics, and plan of care. They verbalized understanding and are in agreement with the plan. Plan and assessment are listed below. BIS team we will continue monitoring patient closely alongside of the [facility] hospitalist team and ID team. Addendum: I followed up on the patient. RN reports that the patient had a small bowel movement with the glycerin suppositories. She reports that she then administered the Fleet enema which the patient had a moderate amount of a stool. RN reports that patient reported her abdominal pain had improved after the bowel movement. Addendum: Blood cultures on 06/01/2024 showed no growth after 48 hours. PAST MEDICAL HISTORY: [Diabetes mellitius type2, hypertension, osteoporosis, arthritis, breast CA currently in remission] SOCIAL HISTORY: [Negative for smoking, alcohol use, drug use. Patient lives with her daughter Patricia Cortez ] SURGICAL HISTORY: [Hysterectomy, cholecystectomy, eye surgery, abdominal hernia repair] Family history: Father: Cardiovascular disease, Brother: Diabetes mellitus Mother: Hypertension, Coded Allergies: No Known Allergies (Unverified Allergy, Unknown, 05/30/24) REVIEW OF SYSTEMS: 12 point ROS reviewed with patient. Pertinent positives mentioned above. Otherwise negative. PHYSICAL EXAM: GENERAL: Alert, awake oriented x 3, uncomfortable HEENT: EOMI, Sclera non icteric, moist mucosa NECK: Supple, no JVD, trachea midline LUNGS: Clear breath sounds bilaterally. No wheezes HEART: Regular rate and rhythm. Normal S1 and S2, without murmurs ABD: Obese. Abdomen tender, round. Bowel sounds diminished. EXT: No clubbing cyanosis or edema NEURO: Alert and oriented x3, follows commands, no neuro deficits. Vital Signs (last 8hr) Date Time Temp Pulse Resp B/P (MAP) Pulse Ox O2 Delivery O2 Flow Rate FiO2 05/31/24 16:10 98.1 92 18 143/73 99 Room Air LABS: Hematology Labs: Test 05/31/24 04:44 05/30/24 02:25 Range/Units White Blood Count 19.1 H 4.8-10.8 K/uL Red Blood Count 3.62 L 4.00-5.50 MIL/uL Hemoglobin 10.9 L 12.0-16.0 g/dL Hematocrit 32.0 L 36-48 % Mean Corpuscular Volume 88.4 79-99 fL Mean Corpuscular Hemoglobin 30.1 27.0-33.0 pg Mean Corpuscular Hemoglobin Concent 34.1 32.0-36.0 g/dL Red Cell Distribution Width 14.6 11.0-15.5 % Platelet Count 215 130-400 K/uL Mean Platelet Volume 12.1 H 7.5-10.5 fL Immature Granulocyte % (Auto) 2.0 H 0-1 % Neutrophils (%) (Auto) 89.9 H 40.0-77.0 % Lymphocytes (%) (Auto) 2.7 L 21.0-51.0 % Monocytes (%) (Auto) 4.8 3.0-13.0 % Eosinophils (%) (Auto) 0.2 0.0-8.0 % Basophils (%) (Auto) 0.4 0.0-5.0 % Neutrophils # (Auto) 17.2 H 1.8-7.7 K/uL Lymphocytes # (Auto) 0.5 L 1.0-4.8 K/uL Monocytes # (Auto) 0.9 0.1-1.0 K/uL Eosinophils # (Auto) 0.03 0.00-0.70 K/uL Basophils # (Auto) 0.08 0.00-0.20 K/uL Absolute Immature Granulocyte (auto 0.39 0-1 K/uL Nucleated Red Blood Cells 1.0 H 0.0-0.19 % White Cell Morphology Comment See comments Chemistry Labs: Test 05/31/24 20:03 05/31/24 11:08 05/31/24 04:44 05/30/24 02:25 Range/Units Whole Blood Glucose 160 H 70-110 MG/DL Bedside Glucose Comment Notified Nurse Sodium Level 135 L 136-145 mmol/L Potassium Level 4.6 3.5-5.1 mmol/L Chloride Level 105 101-111 mmol/L Carbon Dioxide Level 15 L 21-32 mmol/L Blood Urea Nitrogen 27 H 7-18 mg/dL Creatinine 1.2 H 0.5-1.0 mg/dL Glomerular Filtration Rate Calc 48 >90 mL/min Random Glucose 153 H 70-105 mg/dL Lactic Acid Level 1.7 0.8-2.5 mmol/L Total Calcium 8.3 L 8.5-10.1 mg/dL Phosphorus Level 2.9 2.5-4.9 mg/dL Magnesium Level 2.00 1.80-2.40 mg/dL Hemoglobin A1c 9.4 H 4.0-6.0 % Estimated Average Glucose (eAG) 223 H 70-126 mg/dL Total Bilirubin 0.6 0.2-1.0 mg/dL Aspartate Amino Transf (AST/SGOT) 36 10-37 U/L Alanine Aminotransferase (ALT/SGPT) 21 12-78 U/L Alkaline Phosphatase 146 H 50-136 U/L Troponin I High Sensitivity 13 4-50 ng/L Total Protein 7.0 6.0-8.3 g/dL Albumin 2.0 L 3.5-5.0 g/dL Lipase 240 H 16-77 U/L Procalcitonin 2.83 H 0.05-0.5 ng/mL DIAGNOSTICS / RADIOLOGY RESULTS: [ ] PLAN Follow Dr. Jurado's change of the antibiotic therapy. Glycerin suppository x1 now then t.i.d. times 24 hours. Fleet enema x1 dose now. Start Reglan 10 mg IV t.i.d.. Simethicone 160 mg p.o. x1 dose then simethicone 120 mg q.6 hours p.r.n. gas. Avoid narcotics due to constipation. P.r.n. medications for: Pain management, constipation, nausea, vomiting, hypertension. Stop NS at 100 mL/hour as soon as patient tolerates p.o. well. Monitor for fluid overload. NEURO: Minimize central acting medications as possible. Maintain fall precautions, adequate lighting during the day PULMONARY: Supplemental 02 as needed. Maintain aspiration precautions at all times CARDIOVASCULAR: Follow hemodynamics. Vital signs per facility protocol GI & NUTRITION: Continue with nutritional support. Continue stool softeners and laxatives as needed. KIDNEYS & ELECTROLYTES: Strict monitoring of intake, output and overall fluid balance. Avoid nephrotoxic medications to the extent possible. Medications to be dosed according to renal function. Monitor electrolytes and replace as needed ENDOCRINE: Maintain blood glucose between 100-180 at all times. Hypoglycemia protocol in place INFECTIOUS DISEASE: Trend temperature, WBC and procalcitonin level Follow cultures, deescalate antibiotics as soon as possible. Panculture if new onset fever ONCOLOGY/HEMATOLOGY/COAGULATION: Monitor for s/s of bleeding Monitor hemoglobin, coagulation studies as needed SKIN: Pressure ulcer prevention per facility protocol Specialty mattress ORTHO/REHAB: Continue PT/OT Prophylaxis: Continue GI and DVT prophylaxis Code Status: Full Resuscitation Disposition: [place] May 31, 2024 20:19
[2024-05-31] MEDS ORDERED: SIMETHICONE 80 MG TAB.CHEW PO PRN (21:00)
[2024-05-31] MEDS: SIMETHICONE 80 MG TAB.CHEW PO ONE (22:09)
[2024-05-31] MEDS: GLYCERIN ADULT SUPP.RECT RC SCH (22:11)
[2024-05-31] MEDS: ketOROlac 15MG/ML VIAL (15MG/ML) IV ONE (22:11)
[2024-05-31] MEDS: metoCLOPRAmide 10 MG/2 ML VIAL IVP SCH (22:57)
[2024-06-01] VITALS (7 sets, daily range): BP systolic 126–180; BP diastolic 59–79; PULSE 95–110; RESP 20–24; TEMP 98.1–98.5; O2SAT 99
--- NOTE | 2024-06-01 01:25 | NUR ---
NURSING NOTES FLEET ENEMA GIVEN AT 0120, ORDERED. WELL TOLERATED BY PATIENT. WILL CONTINUE TO MONITOIR.
[2024-06-01 05:26] LABS: BASOPHILS % (AUTO) 0.4 % (0.0-5.0); EOSINOPHILS # (AUTO) 0.05 K/uL (0.00-0.70); EOSINOPHILS % (AUTO) 0.2 % (0.0-8.0); HEMATOCRIT 28.5 % (36-48); IMMATURE GRANULOCYTE ABSOLUTE 0.67 K/uL (0-1); LYMPHOCYTES # (AUTO) 1.7 K/uL (1.0-4.8); LYMPHOCYTES % (AUTO) 7.1 % (21.0-51.0); MEAN CORPUSCULAR HEMOGLOBIN 28.8 pg (27.0-33.0); MEAN CORPUSCULAR HGB CONC 32.3 g/dL (32.0-36.0); MEAN CORPUSCULAR VOLUME 89.3 fL (79-99); MONOCYTES % (AUTO) 8.4 % (3.0-13.0); NEUTROPHILS # (AUTO) 19.1 K/uL (1.8-7.7); NEUTROPHILS % (AUTO) 81.1 % (40.0-77.0); NUCLEATED RED BLOOD CELLS 0.7 % (0.0-0.19); PLATELET COUNT (AUTO) 281 K/uL (130-400); RED BLOOD CELL COUNT(AUTO) 3.19 MIL/uL (4.00-5.50); RED CELL DISTRIBUTION WIDTH 14.9 % (11.0-15.5); WHITE BLOOD COUNT (AUTO) 23.6 K/uL (4.8-10.8)
[2024-06-01 05:37] LABS: ALBUMIN 1.4 g/dL (3.5-5.0); BILIRUBIN,TOTAL 0.4 mg/dL (0.2-1.0); POTASSIUM 3.7 mmol/L (3.5-5.1); TOTAL PROTEIN, SERUM 6.6 g/dL (6.0-8.3)
[2024-06-01] MEDS: acetaMINOPHEN 500 MG TABLET PO PRN (07:42)
--- NOTE | 2024-06-01 10:28 | PN ---
[facility] PROGRESS NOTE Date Patient Seen: Jun 01, 2024 Time of Visit: 10:23 Supervising Physician: [Dr. Porras] Primary Care Physician: Admitting team: [facility] hospitalist team Outpatient Specialists: Inpatient Consults: BIS, critical Care team Infectious disease physician/team PROBLEM LIST: Acute sepsis without septic shock, blood cultures on 06/01/2024 showed no growth after 48 hours. Acute complicated cystitis, POA, Gram-negative rods Intractable abdominal pain, POA Acute on chronic constipation, with impaction noted on CT, POA Acute hip pain: Bilateral hips joint space narrowing and degenerative changes 9 mm right lung nodule, incidental finding Small fat-containing nonobstructing left periumbilical hernia. Gram-positive septicemia, POA Acute kidney injury POA , improving Electrolyte derangement (hyponatremia, hyperkalemia), POA Leukocytosis POA Elevated Lipase POA Uncontrolled diabetes mellitus type 2 with the A1c 9.4% Chronic anemia, POA Obesity, BMI 32.1 POA Hypertension Hyperlipidemia History of breast CA currently in remission INTERVAL HISTORY: [Blood pressure is 150/75 with a heart rate of 107, afebrile on room air. Patient has been given suppository and enemas for constipation. Her WBCs morning increased to 23, small left shift with neutrophils at 81%. BMP shows improved serum bicarbonate from 15 to 21. Alkaline phosphatase is elevated to 320, likely in the setting of acute infection. Her lactic acid improved from 2.4-1.7. Pro count slightly elevated at 2.83. Patient was given IV fluids bicarb yesterday with improvement. ID is consulted pending recommendation. Patient continues on Rocephin vancomycin. Her urine culture is positive for Klebsiella pneumoniae with resistance to nitrofurantoin, but is sensitive to cephalosporins. Blood culture was one of two Gram-positive rods with is negativ e 2/2 after 48 hours. She complains of abdominal pain to RLQ. This is the same area she is noted to have impaction on CT, consistent with fecal impaction constipation. No signs of bowel obstruction per imaging.] REVIEW OF SYSTEMS: 12 point ROS reviewed with patient. Pertinent positives mentioned above. Otherwise negative. PHYSICAL EXAM: GENERAL: Alert, awake oriented x 3, uncomfortable HEENT: EOMI, Sclera non icteric, moist mucosa NECK: Supple, no JVD, trachea midline LUNGS: Clear breath sounds bilaterally. No wheezes HEART: Regular rate and rhythm. Normal S1 and S2, without murmurs ABD: Obese. Abdomen tender, round. Bowel sounds diminished. EXT: No clubbing cyanosis or edema NEURO: Alert and oriented x3, follows commands, no neuro deficits. Vital Signs (last 8hr) Date Time Temp Pulse Resp B/P (MAP) Pulse Ox O2 Delivery O2 Flow Rate FiO2 06/01/24 08:00 98.2 107 20 150/75 99 Room Air 06/01/24 08:00 99 Room Air* 0 21 06/01/24 04:00 98.4 99 22 126/69 95 Room Air LABS: Hematology Labs: Test 06/01/24 04:32 Range/Units White Blood Count 23.6 H 4.8-10.8 K/uL Red Blood Count 3.19 L 4.00-5.50 MIL/uL Hemoglobin 9.2 L 12.0-16.0 g/dL Hematocrit 28.5 L 36-48 % Mean Corpuscular Volume 89.3 79-99 fL Mean Corpuscular Hemoglobin 28.8 27.0-33.0 pg Mean Corpuscular Hemoglobin Concent 32.3 32.0-36.0 g/dL Red Cell Distribution Width 14.9 11.0-15.5 % Platelet Count 281 # 130-400 K/uL Mean Platelet Volume 12.2 H 7.5-10.5 fL Immature Granulocyte % (Auto) 2.8 H 0-1 % Neutrophils (%) (Auto) 81.1 H 40.0-77.0 % Lymphocytes (%) (Auto) 7.1 L 21.0-51.0 % Monocytes (%) (Auto) 8.4 3.0-13.0 % Eosinophils (%) (Auto) 0.2 0.0-8.0 % Basophils (%) (Auto) 0.4 0.0-5.0 % Neutrophils # (Auto) 19.1 H 1.8-7.7 K/uL Lymphocytes # (Auto) 1.7 1.0-4.8 K/uL Monocytes # (Auto) 2.0 H 0.1-1.0 K/uL Eosinophils # (Auto) 0.05 0.00-0.70 K/uL Basophils # (Auto) 0.10 0.00-0.20 K/uL Absolute Immature Granulocyte (auto 0.67 0-1 K/uL Nucleated Red Blood Cells 0.7 H 0.0-0.19 % Chemistry Labs: Test 06/01/24 05:18 06/01/24 04:32 05/31/24 11:08 05/31/24 04:44 Range/Units Whole Blood Glucose 133 H 70-110 MG/DL Sodium Level 133 L 136-145 mmol/L Potassium Level 3.7 3.5-5.1 mmol/L Chloride Level 101 101-111 mmol/L Carbon Dioxide Level 21 21-32 mmol/L Blood Urea Nitrogen 22 H 7-18 mg/dL Creatinine 1.0 0.5-1.0 mg/dL Glomerular Filtration Rate Calc 60 >90 mL/min Random Glucose 142 H 70-105 mg/dL Total Calcium 7.7 L 8.5-10.1 mg/dL Total Bilirubin 0.4 0.2-1.0 mg/dL Aspartate Amino Transf (AST/SGOT) 35 10-37 U/L Alanine Aminotransferase (ALT/SGPT) 32 12-78 U/L Alkaline Phosphatase 320 H 50-136 U/L Total Protein 6.6 6.0-8.3 g/dL Albumin 1.4 L 3.5-5.0 g/dL Bedside Glucose Comment Notified Nurse Lactic Acid Level 1.7 0.8-2.5 mmol/L Phosphorus Level 2.9 2.5-4.9 mg/dL Magnesium Level 2.00 1.80-2.40 mg/dL DIAGNOSTICS / RADIOLOGY RESULTS: ABDOMEN: Heart size is normal. Coronary arterial wall calcific plaque noted. Incompletely imaged 9 mm right lung nodule. No abnormal renal calcifications, hydronephrosis, perinephric inflammation, or proximal hydroureter detected. Small simple cyst upper pole right kidney. The liver is normal in size and smooth in contour without biliary duct dilation. The spleen is normal in size and attenuation. The gallbladder his absent. The pancreas appears normal without pancreatic duct dilation. Chronic bilateral adrenal gland calcifications.. No significant abdominal, retrocrural or retroperitoneal adenopathy noted. No evidence for intra-abdominal free air or organized fluid collection. Mild calcific plaque is noted along the abdominal aortic and iliac vessel cotto without aneurysmal dilation. Small fat-containing nonobstructing left periumbilical hernia. PELVIS: No abnormal calcifications within the urinary bladder or distal ureters. No evidence for free air or organized pelvic fluid collection. No significant pelvic adenopathy detected. Moderate proximal to mid colonic stool burden. Terminal ileum appears normal. The appendix it is not well-visualized. Uterus is absent. L1 vertebral plana with chronic retropulsion contributing to mild to moderate central canal stenosis. IMPRESSION: 1. Incompletely imaged 9 mm right lung nodule. 2. No evidence for any acute intra-abdominal or pelvic process. 3. Small fat-containing nonobstructing left periumbilical hernia. 4. Additional minor findings, postsurgical changes, and pertinent negatives as reported. PLAN Follow Dr. Jurado's change of the antibiotic therapy. Glycerin suppository x1 now then t.i.d. times 24 hours. Fleet enema x1 dose now. Start Reglan 10 mg IV t.i.d.. Simethicone 160 mg p.o. x1 dose then simethicone 120 mg q.6 hours p.r.n. gas. Avoid narcotics due to constipation. P.r.n. medications for: Pain management, constipation, nausea, vomiting, hypertension. Stop NS at 100 mL/hour as soon as patient tolerates p.o. well. Monitor for fluid overload. NEURO: Minimize central acting medications as possible. Maintain fall precautions, adequate lighting during the day PULMONARY: Supplemental 02 as needed. Maintain aspiration precautions at all times CARDIOVASCULAR: Follow hemodynamics. Vital signs per facility protocol GI & NUTRITION: Continue with nutritional support. Continue stool softeners and laxatives as needed. KIDNEYS & ELECTROLYTES: Strict monitoring of intake, output and overall fluid balance. Avoid nephrotoxic medications to the extent possible. Medications to be dosed according to renal function. Monitor electrolytes and replace as needed ENDOCRINE: Maintain blood glucose between 100-180 at all times. Hypoglycemia protocol in place INFECTIOUS DISEASE: Trend temperature, WBC and procalcitonin level Follow cultures, deescalate antibiotics as soon as possible. Panculture if new onset fever ONCOLOGY/HEMATOLOGY/COAGULATION: Monitor for s/s of bleeding Monitor hemoglobin, coagulation studies as needed SKIN: Pressure ulcer prevention per facility protocol Specialty mattress ORTHO/REHAB: Continue PT/OT Prophylaxis: Continue GI and DVT prophylaxis Code Status: Full Resuscitation Disposition: D ROSALIE ROTHMAN Jun 01, 2024 10:28
--- NOTE | 2024-06-01 10:31 | PN ---
[facility] PROGRESS NOTE Date of Service: Jun 01, 2024 Time of Service: 10:31 SUBJECTIVE: This is a 73-year-old female patient with a past medical history of hypertension, diabetes mellitus type 2, osteoporosis, osteoarthritis, asthma and breast CA currently in remission presented to the ED with a chief complaint of generalized abdominal pain started 8 days ago. The pain is aggravated by walking. She denies nausea, vomiting, diarrhea, shortness of breath and chest pain. In the ED she was tachypneic and labs were remarkable for leukocytosis WBC 17.4 Left shift neutrophils 84.6 %. Lactic acid 2.4. Urine analysis remarkable for UTI. Patient was admitted for sepsis, electrolyte imbalance and and UTI. 05/30/24 the patient is seen and examined at the bedside today. She is complaining of generalized abdominal pain with a pain score 8/10. She denies nausea, vomiting, fever or chills. Labs are remarkable for WBC 17.4, potassium 5.2, BUN 46, creatinine 1.8 GFR 30 HB A1c 9.4%, procalcitonin 2.83, lipase 240, lactate is down to 1.5 From 2.4. Urine analysis is positive for occult blood moderate, leukocyte esterase 500, urine WBCs 26-50, WBC too numerous to count, urine sodium 26. CT abdomen and pelvis without contrast showed no acute findin gs and possible constipation. Urine and blood culture in process. Patient has had no bowel movement since 3-4 days and we will order laxatives. She will be monitored closely. 05/31/24 The patient is seen and examined at the bedside today.Vitals increased pulse rate 103, sinus tachycardia. She is complaining of nausea and severe, constant, diffuse abdominal pain 10/10 and bilateral hip pain, prominent on right side. She did not have a bowel movement yet. She denies fever, headache, chills, vomiting, shortness of breath, chest pain, palpitations, diarrhea, difficulty in urination. Remarkable lab results WBC increased from 17.4-19.1, low hemoglobin 10.9, low sodium 135. BUN decreased from 46 to 27 and creatinine 1.8 to 1.2. Abdominal x-ray resulted in mild gaseous distention of the colon. Bilateral hip x-ray resulted in no acute displaced fracture or dislocation. Blood Cultures resulted in Gram-positive rods. Urine Culture resulted in Gram- negative rods. 06/01/24 Patient seen and examined at the bedside today. Today her vital signs are blood pressure 150/75, pulse rate 107, respiratory rate 20, SpO2 99% on room air,T-max 98.2. She is complaining of nausea and severe, constant, diffuse abdominal pain /10. WBC trending upwards from 19.1 to 23.6, hemoglobin dropping from 10.9 to 9.2. Bicarb was given, increased from [address] scan wi oral contrast showed no evidence of any acute intra-abdominal or pelvic process and a small fat-containing nonobstructing left periumbilical hernia. Per patient, she had h/o multiple hernia surgeries and cholecystectomy in the past. Will order KUB x-ray. REVIEW OF SYSTEMS CONSTITUTIONAL: Denies fevers, chills, or night sweats. No unintentional weight loss reported. Generalized weakness, bilateral hip pain NEUROLOGICAL: Denies headache, amaurosis fugax, motor weakness, sensory deficit, vertigo/spinning sensation, gait abnormalities, or tremors. ENT: No hearing loss, otalgia, otorrhea, rhinitis, rhinorrhea, hoarseness, or sore throat. CARDIOVASCULAR: Denies any exertional angina, dyspnea on exertion, orthopnea, paroxysmal nocturnal dyspnea, palpitations, life-threatening arrhythmias, claudication. PULMONARY: Denies any shortness of breath, cough, phlegm/sputum, hemoptysis, pleuritic chest pain. SLEEP: Denies morning headaches, daytime somnolence or napping. Denies difficulty falling asleep, staying asleep, waking from sleep. Denies knowledge of snoring. GASTROINTESTINAL: Positive for constant severe and diffuse abdominal pain and constipation. Denies any type of dysphagia to either liquids or solids. Denies nausea, vomiting, pyrosis, early satiety, diarrhea, or changes in stool consis tency or caliber. Denies coffee-ground emesis, hematemesis, hematochezia, or melanotic stools. GENITOURINARY: Denies frequency, urgency, nocturia, hematuria or incontinence (Storage/Irritative symptoms.) Low urinary stream, straining to void, urinary intermittency or hesitancy, splitting of the voiding stream, terminal dribbling. ENDOCRINOLOGIC: Denies polyuria, polydipsia, polyphagia or heat/cold intolerances. HEMATOLOGIC: Denies thrombophilia/previous clots, or coagulopathy/bleeding disorders. ONCOLOGIC: Denies personal history of malignancy. DERMATOLOGIC: Denies rashes or pruritus. PSYCHIATRIC: Denies any suicidal or homicidal ideation. Denies hallucinations. PHYSICAL EXAM GENERAL APPEARANCE: The patient is awake, alert, and oriented, in no acute cardiopulmonary distress. NEUROLOGICAL: Cranial nerves II-XII grossly intact. Motor is 5/5 in bilateral upper and lower extremities proximal to distal. No sensory deficits. HEENT: Face is symmetric. Pupils are equal and reactive. Extraocular movements are intact. NECK: Supple. No JVD. No thyromegaly. No submental, submandibular, pre- /postauricular, occipital or supraclavicular lymphadenopathy. CHEST: Normal chest expansion. No Telemetry. LUNGS: Absence of any rales, rhonchi or any wheezing. CARDIOVASCULAR: Regular. S1 and S2 normal. No appreciable rubs, murmurs or gallops. ABDOMEN: Positive for active bowel sounds Soft, nontender, and nondistended. There is no rebound, voluntary guarding, or rigidity. : Deferred. No Burt. EXTREMITIES: Non-edematous and not cyanotic. No clubbing. Good capillary refill. SKIN: No skin breakdown. Vital Signs (last 8hr) Date Time Temp Pulse Resp B/P (MAP) Pulse Ox O2 Delivery O2 Flow Rate FiO2 06/01/24 08:00 98.2 107 20 150/75 99 Room Air 06/01/24 08:00 99 Room Air* 0 21 06/01/24 04:00 98.4 99 22 126/69 95 Room Air LABS: Laboratory: Test 06/01/24 05:18 06/01/24 04:32 05/31/24 19:47 05/31/24 11:08 Range/Units Whole Blood Glucose 133 H 70-110 MG/DL White Blood Count 23.6 H 4.8-10.8 K/uL Red Blood Count 3.19 L 4.00-5.50 MIL/uL Hemoglobin 9.2 L 12.0-16.0 g/dL Hematocrit 28.5 L 36-48 % Mean Corpuscular Volume 89.3 79-99 fL Mean Corpuscular Hemoglobin 28.8 27.0-33.0 pg Mean Corpuscular Hemoglobin Concent 32.3 32.0-36.0 g/dL Red Cell Distribution Width 14.9 11.0-15.5 % Platelet Count 281 # 130-400 K/uL Mean Platelet Volume 12.2 H 7.5-10.5 fL Immature Granulocyte % (Auto) 2.8 H 0-1 % Neutrophils (%) (Auto) 81.1 H 40.0-77.0 % Lymphocytes (%) (Auto) 7.1 L 21.0-51.0 % Monocytes (%) (Auto) 8.4 3.0-13.0 % Eosinophils (%) (Auto) 0.2 0.0-8.0 % Basophils (%) (Auto) 0.4 0.0-5.0 % Neutrophils # (Auto) 19.1 H 1.8-7.7 K/uL Lymphocytes # (Auto) 1.7 1.0-4.8 K/uL Monocytes # (Auto) 2.0 H 0.1-1.0 K/uL Eosinophils # (Auto) 0.05 0.00-0.70 K/uL Basophils # (Auto) 0.10 0.00-0.20 K/uL Absolute Immature Granulocyte (auto 0.67 0-1 K/uL Nucleated Red Blood Cells 0.7 H 0.0-0.19 % Sodium Level 133 L 136-145 mmol/L Potassium Level 3.7 3.5-5.1 mmol/L Chloride Level 101 101-111 mmol/L Carbon Dioxide Level 21 21-32 mmol/L Blood Urea Nitrogen 22 H 7-18 mg/dL Creatinine 1.0 0.5-1.0 mg/dL Glomerular Filtration Rate Calc 60 >90 mL/min Random Glucose 142 H 70-105 mg/dL Total Calcium 7.7 L 8.5-10.1 mg/dL Total Bilirubin 0.4 0.2-1.0 mg/dL Aspartate Amino Transf (AST/SGOT) 35 10-37 U/L Alanine Aminotransferase (ALT/SGPT) 32 12-78 U/L Alkaline Phosphatase 320 H 50-136 U/L Total Protein 6.6 6.0-8.3 g/dL Albumin 1.4 L 3.5-5.0 g/dL Blood Gas Specimen Type Arterial Arterial Blood pH 7.419 7.350-7.450 Arterial Blood Partial Pressure CO2 24 L 32-45 mmHg Arterial Blood Partial Pressure O2 99.3 83.0-108.0 mmHg Arterial Blood HCO3 15.2 L 21.0-28.0 mmol/L Arterial Blood Oxygen Saturation 97.7 94.0-98.0 % Arterial Blood Base Excess -7.2 L -2.0-3.0 mmol/L Blood Gas Temperature 37.0 35.5-37.0 CELSIUS Blood Gas Vent Mode RA ROOM AIR FiO2 21.0 % Blood Gas Specimen Comment RR,RNMERCY Bedside Glucose Comment Notified Nurse Test 05/31/24 04:44 Range/Units Lactic Acid Level 1.7 0.8-2.5 mmol/L Phosphorus Level 2.9 2.5-4.9 mg/dL Magnesium Level 2.00 1.80-2.40 mg/dL Current Medications Medications (Trade) Dose Ordered Sig/Durga Route PRN Reason Start Time Stop Time Status Last Admin Dose Admin Acetaminophen (TYLenol 500MG TAB) 500 mg Q4H PRN PO TEMPERATURE GREATER THAN 101.5 05/31/24 11:00 06/30/24 10:59 06/01/24 08:56 500 MG Albuterol Sulfate (Proventil 0.083% 2.5mg/3ml) 2.5 mg Q6H PRN IH WHEEZING 05/30/24 14:00 06/29/24 12:59 Albuterol Sulfate (Proventil 0.083% 2.5mg/3ml) 2.5 mg Q6HPRN 05/30/24 13:00 05/30/24 13:55 DC Albuterol Sulfate (Proventil 0.083% 2.5mg/3ml) 10 mg ONCE 05/30/24 04:30 05/30/24 12:45 DC 05/30/24 05:18 10 MG Amlodipine Besylate (NorvASC 5MG TAB) 5 mg DAILY PO 05/31/24 09:00 06/30/24 08:59 06/01/24 08:45 5 MG Atorvastatin Calcium (LIPItor 40MG) 40 mg DAILY PO 05/31/24 09:00 06/30/24 08:59 06/01/24 08:45 40 MG Brimonidine Tartrate (Alphagan P) 0.2ML OU BID BID OU 05/30/24 21:00 06/29/24 20:59 05/31/24 22:10 0.2 ML Ceftriaxone Sodium (ROCEphine 1G INJ) 1 gm Q12H IVPB 05/31/24 15:00 06/10/24 14:59 06/01/24 03:26 1 GM Gabapentin (NEURontin 100 mg CAP) 100 mg TID PO 05/30/24 14:00 06/29/24 13:59 06/01/24 08:45 100 MG Glycerin (Glycerin Adult Supp) 1 supp TID RC 05/31/24 21:00 06/02/24 10:00 06/01/24 08:56 1 SUPP Heparin Sodium (Porcine) (HEParin 5,000 UNIT VIAL) 5,000 unit BID SQ 05/30/24 09:00 06/29/24 08:59 06/01/24 08:55 5,000 UNIT Hydralazine HCl (APRESOLine 20MG INJ) 10 mg Q6H PRN IV For:SBP above 160;DBP above 90 05/30/24 05:30 06/29/24 05:29 Insulin Human Regular (humuLIN R 100 UNIT/ML 3ML) INSULIN SLIDING SCAL... ACHS SQ 05/30/24 07:30 06/29/24 07:29 05/31/24 11:50 2 UNIT Lactated Ringer's 1,000 ml @ 60 mls/hr [id number] IV 05/30/24 05:30 05/31/24 17:15 DC 05/31/24 00:11 60 MLS/HR Latanoprost (Xalatan) 1 DROP OU HS HS OU 05/30/24 21:00 06/29/24 20:59 05/31/24 22:10 1 DROP Losartan Potassium (CozAAR 100MG TAB) 100 mg DAILY PO 05/31/24 09:00 05/30/24 13:53 DC Magnesium Sulfate 50 ml @ 0 mls/hr PROTOCOL PRN IV hypomagnesemia 05/30/24 05:30 06/29/24 05:29 Metoclopramide HCl (regLAN 10MG IV) 10 mg TIDAC IVP 05/31/24 21:00 06/30/24 20:59 06/01/24 08:45 10 MG Morphine Sulfate (morPHINE 2MG SYG) 2 mg ONCE STAT IVP 05/30/24 02:21 05/30/24 02:23 DC 05/30/24 02:30 2 MG Morphine Sulfate (morPHINE 2MG SYG) 2 mg Q4H PRN IVP SEVERE PAIN (7-10) 05/30/24 05:30 06/06/24 05:29 05/30/24 16:06 2 MG Ondansetron HCl (zoFRAN 4MG INJ) 4 mg Q6H PRN IV NAUSEA/VOMITING 05/30/24 05:30 06/29/24 05:29 Pantoprazole Sodium (PROTonix 40MG TAB) 40 mg DAILY PO 05/30/24 09:00 06/29/24 08:59 06/01/24 08:45 40 MG Piperacillin Sod/ Tazobactam Sod (Zosyn 3.375gm+NS 50ml) 3.375 gm ONCE STAT IVPB 05/30/24 02:43 05/30/24 02:47 DC 05/30/24 03:03 3.375 GM Piperacillin Sod/ Tazobactam Sod (Zosyn 3.375gm+NS 50ml) 3.375 gm Q12H IV 05/30/24 14:30 05/31/24 15:02 DC 05/31/24 14:24 3.375 GM Polyethylene Glycol (MIRalax 3350 17 GM POWD.PACK) 17 gm DAILY PO 05/31/24 09:00 06/30/24 08:59 06/01/24 08:45 17 GM Potassium Chloride 100 ml @ 100 mls/hr AD PRN IV POTASSIUM PROTOCOL 05/30/24 05:30 06/29/24 05:29 Potassium Chloride (K-Dur 10meq Sr Tab) 10 meq AD PRN PO POTASSIUM PROTOCOL 05/30/24 06:00 06/29/24 05:59 Potassium Chloride (KCl 10% Elixir 20meq/15ml) 10 meq AD PRN PO POTASSIUM PROTOCOL 05/30/24 05:30 06/29/24 05:29 Simethicone (Mylicon) 120 mg Q6H PRN PO GI GAS 05/31/24 21:00 06/30/24 20:59 Sodium Chloride 1,000 ml @ 100 mls/hr Q10H IV 05/31/24 17:30 06/30/24 17:29 06/01/24 07:35 100 MLS/HR Vancomycin HCl 250 ml @ 150 mls/hr Q24H IV 05/31/24 16:00 06/10/24 15:59 05/31/24 16:42 150 MLS/HR Vancomycin HCl (Vancomycin Protocol) 1 each AD IV 05/31/24 15:30 06/14/24 15:29 Vancomycin HCl (Vancomycin 1g/ 250ml Kit) 1 gm ONCE STAT IV 05/30/24 02:43 05/30/24 02:47 DC 05/30/24 03:50 1 GM DIAGNOSTICS / RADIOLOGY: [ ] REASON: severe abdominal pain ORDERING PHYSICIAN: REJI FERNÁNDEZ MD PROCEDURE: ABD PEL WO - CT ABDOMEN/PELVIS W/O CONTRAST CT ABDOMEN WITHOUT CONTRAST. CT PELVIS WITHOUT CONTRAST. INDICATION: Severe abdominal pain TECHNIQUE: Routine transaxial imaging using 5 mm slice thickness through the abdomen and pelvis without the administration of IV contrast. Thin slice reconstructions are also provided. Coronal and sagittal reformatted images acquired for interpretation. Oral contrast was administered. CT was performed with one or more of the following dose reduction techniques: Automated exposure control, adjustment of the mA and/or kV according to patient size, or use of iterative reconstruction technique. COMPARISON: None FINDINGS: ON NONCONTRAST IMAGING: ABDOMEN: Heart size is normal. Coronary arterial wall calcific plaque noted. Incompletely imaged 9 mm right lung nodule. No abnormal renal calcifications, hydronephrosis, perinephric inflammation, or proximal hydroureter detected. Small simple cyst upper pole right kidney. The liver is normal in size and smooth in contour without biliary duct dilation. The spleen is normal in size and attenuation. The gallbladder his absent. The pancreas appears normal without pancreatic duct dilation. Chronic bilateral adrenal gland calcifications.. No significant abdominal, retrocrural or retroperitoneal adenopathy noted. No evidence for intra-abdominal free air or organized fluid collection. Mild calcific plaque is noted along the abdominal aortic and iliac vessel cotto without aneurysmal dilation. Small fat-containing nonobstructing left periumbilical hernia. PELVIS: No abnormal calcifications within the urinary bladder or distal ureters. No evidence for free air or organized pelvic fluid collection. No significant pelvic adenopathy detected. Moderate proximal to mid colonic stool burden. Terminal ileum appears normal. The appendix it is not well-visualized. Uterus is absent. L1 vertebral plana with chronic retropulsion contributing to mild to moderate central canal stenosis. IMPRESSION: 1. Incompletely imaged 9 mm right lung nodule. 2. No evidence for any acute intra-abdominal or pelvic process. 3. Small fat-containing nonobstructing left periumbilical hernia. 4. Additional minor findings, postsurgical changes, and pertinent negatives as reported. REASON: fall 1 week ago, rohan hip pain ORDERING PHYSICIAN: DONNIE DAVEY [employer] PROCEDURE: HIPS B 2V - HIP BILAT 2VW HIP BILAT 2VW HISTORY: Status post fall COMPARISON: None TECHNIQUE: 2 images of bilateral hips were obtained. FINDINGS: There is no acute displaced fracture or dislocation. Bilateral hips joint space narrowing are seen. Degenerative changes are seen. IMPRESSION: 1. Findings as described above. ASSESSMENT: Sepsis secondary to UTI POA Gram-positive septicemia, POA Urinary Tract infection POA, Gram-negative rods Acute kidney injury POA , improving Electrolyte imbalance (hyponatremia, hyperkalemia)POA Leukocytosis POA Elevated Lipase POA Diabetes mellitus type 2 with the A1c 9.4% chronic anemia, POA Obesity POA Hypertension Hyperlipidemia History of breast CA currently in remission PLAN: Continue to monitor patient on medical/surgical floor. Sepsis secondary to Urinary Tract infection POA Urine analysis is positive for occult blood, leukocyte esterase 500, urine RBCs 26-50, WBCs too numerous to count and urine sodium 26. Urine culture resulted in Gram-negative rods, sensitivities pending Procalcitonin 2.83. We will stop Zosyn and start Rocephin1 g IV b.i.d. Gram positive septicemia, POA We will start the patient on vancomycin protocol We will consult ID in view of polymicrobial sepsis We will consult BIS polymicrobial sepsis Acute kidney injury POA Electrolyte imbalance (hyponatremia, hyperkalemia)POA Avoid Nephrotoxic drugs. Continue LR @60 ml/hrs. We will monitor electrolytes closely and replace them as per protocol Elevated Lipase POA Lipase level 240 and continue IV hydration. Diabetes mellitus type 2 with the A1c 9.4% A1c 9.4% Monitor blood glucose a.c. and HS. Follow insulin sliding scale. Hypoglycemia protocol. Hypertension Continue Norvasc 5 mg. Give hydralazine IV as needed if SBP above 170 mm hg. Hyperlipidemia Continue atorvastatin 40 mg Continue GI and DVT prophylaxis. PRN medications for pain, fever, nausea and vomiting are added. We will consult Physical therapy in view of generalized weakness and inability to walk as per her baseline ATTESTATION BY PHYSICIAN I have seen and examined the patient. I reviewed the documentation, medical decision making, and treatment plan as noted by the resident provider above. I agree with the findings and plan of care. Candice Otoole MD, NIHITHA MD Jun 01, 2024 10:31 CANDICE OTOOLE MD Jun 02, 2024 20:42
--- NOTE | 2024-06-01 11:00 | NUR ---
DR CHAN HERE TO ASSESS PATIENT. NEW ORDER FOR MAG CITRATE AND LACTULOSE.
[2024-06-01] MEDS: LACTULOSE 20 GM/30 ML UDCUP PO ONE (11:12)
[2024-06-01] MEDS: MAGNESIUM CITRATE 296 ML SOLUTION PO ONE ×2 (11:12→14:58)
--- NOTE | 2024-06-01 11:33 | PN ---
[facility] PROGRESS NOTE Date of Service: Jun 01, 2024 Time of Service: 11:31 SUBJECTIVE: This is a 73-year-old female patient with a past medical history of hypertension, diabetes mellitus type 2, osteoporosis, osteoarthritis, asthma and breast CA currently in remission presented to the ED with a chief complaint of generalized abdominal pain started 8 days ago. The pain is aggravated by walking. She denies nausea, vomiting, diarrhea, shortness of breath and chest pain. In the ED she was tachypneic and labs were remarkable for leukocytosis WBC 17.4 Left shift neutrophils 84.6 %. Lactic acid 2.4. Urine analysis remarkable for UTI. Patient was admitted for sepsis, electrolyte imbalance and and UTI. 05/30/24 the patient is seen and examined at the bedside today. She is complaining of generalized abdominal pain with a pain score 8/10. She denies nausea, vomiting, fever or chills. Labs are remarkable for WBC 17.4, potassium 5.2, BUN 46, creatinine 1.8 GFR 30 HB A1c 9.4%, procalcitonin 2.83, lipase 240, lactate is down to 1.5 From 2.4. Urine analysis is positive for occult blood moderate, leukocyte esterase 500, urine WBCs 26-50, WBC too numerous to count, urine sodium 26. CT abdomen and pelvis without contrast showed no acute findin gs and possible constipation. Urine and blood culture in process. Patient has had no bowel movement since 3-4 days and we will order laxatives. She will be monitored closely. 05/31/24 The patient is seen and examined at the bedside today.Vitals increased pulse rate 103, sinus tachycardia. She is complaining of nausea and severe, constant, diffuse abdominal pain 10/10 and bilateral hip pain, prominent on right side. She did not have a bowel movement yet. She denies fever, headache, chills, vomiting, shortness of breath, chest pain, palpitations, diarrhea, difficulty in urination. Remarkable lab results WBC increased from 17.4-19.1, low hemoglobin 10.9, low sodium 135. BUN decreased from 46 to 27 and creatinine 1.8 to 1.2. Abdominal x-ray resulted in mild gaseous distention of the colon. Bilateral hip x-ray resulted in no acute displaced fracture or dislocation. Blood Cultures resulted in Gram-positive rods. Urine Culture resulted in Gram- negative rods. 06/01/24 The patient is seen and examined at the bedside today. REVIEW OF SYSTEMS CONSTITUTIONAL: Denies fevers, chills, or night sweats. No unintentional weight loss reported. Generalized weakness, bilateral hip pain NEUROLOGICAL: Denies headache, amaurosis fugax, motor weakness, sensory defi cit, vertigo/spinning sensation, gait abnormalities, or tremors. ENT: No hearing loss, otalgia, otorrhea, rhinitis, rhinorrhea, hoarseness, or sore throat. CARDIOVASCULAR: Denies any exertional angina, dyspnea on exertion, orthopnea, paroxysmal nocturnal dyspnea, palpitations, life-threatening arrhythmias, claudication. PULMONARY: Denies any shortness of breath, cough, phlegm/sputum, hemoptysis, pleuritic chest pain. SLEEP: Denies morning headaches, daytime somnolence or napping. Denies difficulty falling asleep, staying asleep, waking from sleep. Denies knowledge of snoring. GASTROINTESTINAL: Positive for constant severe and diffuse abdominal pain and constipation. Denies any type of dysphagia to either liquids or solids. Denies nausea, vomiting, pyrosis, early satiety, diarrhea, or changes in stool consistency or caliber. Denies coffee-ground emesis, hematemesis, hematochezia, or melanotic stools. GENITOURINARY: Denies frequency, urgency, nocturia, hematuria or incontinence (Storage/Irritative symptoms.) Low urinary stream, straining to void, urinary intermittency or hesitancy, splitting of the voiding stream, terminal dribbling. ENDOCRINOLOGIC: Denies polyuria, polydipsia, polyphagia or heat/cold intolerances. HEMATOLOGIC: Denies thrombophilia/previous clots, or coagulopathy/bleeding disorders. ONCOLOGIC: Denies personal history of malignancy. DERMATOLOGIC: Denies rashes or pruritus. PSYCHIATRIC: Denies any suicidal or homicidal ideation. Denies hallucinations. PHYSICAL EXAM GENERAL APPEARANCE: The patient is awake, alert, and oriented, in no acute cardiopulmonary distress. NEUROLOGICAL: Cranial nerves II-XII grossly intact. Motor is 5/5 in bilateral upper and lower extremities proximal to distal. No sensory deficits. HEENT: Face is symmetric. Pupils are equal and reactive. Extraocular movements are intact. NECK: Supple. No JVD. No thyromegaly. No submental, submandibular, pre- /postauricular, occipital or supraclavicular lymphadenopathy. CHEST: Normal chest expansion. No Telemetry. LUNGS: Absence of any rales, rhonchi or any wheezing. CARDIOVASCULAR: Regular. S1 and S2 normal. No appreciable rubs, murmurs or gallops. ABDOMEN: Positive for active bowel sounds Soft, nontender, and nondistended. There is no rebound, voluntary guarding, or rigidity. : Deferred. No Burt. EXTREMITIES: Non-edematous and not cyanotic. No clubbing. Good capillary refill. SKIN: No skin breakdown. Vital Signs (last 8hr) Date Time Temp Pulse Resp B/P (MAP) Pulse Ox O2 Delivery O2 Flow Rate FiO2 06/01/24 08:00 98.2 107 20 150/75 99 Room Air 06/01/24 08:00 99 Room Air* 0 21 06/01/24 04:00 98.4 99 22 126/69 95 Room Air LABS: Laboratory: Test 06/01/24 05:18 06/01/24 04:32 05/31/24 19:47 05/31/24 11:08 Range/Units Whole Blood Glucose 133 H 70-110 MG/DL White Blood Count 23.6 H 4.8-10.8 K/uL Red Blood Count 3.19 L 4.00-5.50 MIL/uL Hemoglobin 9.2 L 12.0-16.0 g/dL Hematocrit 28.5 L 36-48 % Mean Corpuscular Volume 89.3 79-99 fL Mean Corpuscular Hemoglobin 28.8 27.0-33.0 pg Mean Corpuscular Hemoglobin Concent 32.3 32.0-36.0 g/dL Red Cell Distribution Width 14.9 11.0-15.5 % Platelet Count 281 # 130-400 K/uL Mean Platelet Volume 12.2 H 7.5-10.5 fL Immature Granulocyte % (Auto) 2.8 H 0-1 % Neutrophils (%) (Auto) 81.1 H 40.0-77.0 % Lymphocytes (%) (Auto) 7.1 L 21.0-51.0 % Monocytes (%) (Auto) 8.4 3.0-13.0 % Eosinophils (%) (Auto) 0.2 0.0-8.0 % Basophils (%) (Auto) 0.4 0.0-5.0 % Neutrophils # (Auto) 19.1 H 1.8-7.7 K/uL Lymphocytes # (Auto) 1.7 1.0-4.8 K/uL Monocytes # (Auto) 2.0 H 0.1-1.0 K/uL Eosinophils # (Auto) 0.05 0.00-0.70 K/uL Basophils # (Auto) 0.10 0.00-0.20 K/uL Absolute Immature Granulocyte (auto 0.67 0-1 K/uL Nucleated Red Blood Cells 0.7 H 0.0-0.19 % Sodium Level 133 L 136-145 mmol/L Potassium Level 3.7 3.5-5.1 mmol/L Chloride Level 101 101-111 mmol/L Carbon Dioxide Level 21 21-32 mmol/L Blood Urea Nitrogen 22 H 7-18 mg/dL Creatinine 1.0 0.5-1.0 mg/dL Glomerular Filtration Rate Calc 60 >90 mL/min Random Glucose 142 H 70-105 mg/dL Total Calcium 7.7 L 8.5-10.1 mg/dL Total Bilirubin 0.4 0.2-1.0 mg/dL Aspartate Amino Transf (AST/SGOT) 35 10-37 U/L Alanine Aminotransferase (ALT/SGPT) 32 12-78 U/L Alkaline Phosphatase 320 H 50-136 U/L Total Protein 6.6 6.0-8.3 g/dL Albumin 1.4 L 3.5-5.0 g/dL Blood Gas Specimen Type Arterial Arterial Blood pH 7.419 7.350-7.450 Arterial Blood Partial Pressure CO2 24 L 32-45 mmHg Arterial Blood Partial Pressure O2 99.3 83.0-108.0 mmHg Arterial Blood HCO3 15.2 L 21.0-28.0 mmol/L Arterial Blood Oxygen Saturation 97.7 94.0-98.0 % Arterial Blood Base Excess -7.2 L -2.0-3.0 mmol/L Blood Gas Temperature 37.0 35.5-37.0 CELSIUS Blood Gas Vent Mode RA ROOM AIR FiO2 21.0 % Blood Gas Specimen Comment RR,RNMERCY Bedside Glucose Comment Notified Nurse Test 05/31/24 04:44 Range/Units Lactic Acid Level 1.7 0.8-2.5 mmol/L Phosphorus Level 2.9 2.5-4.9 mg/dL Magnesium Level 2.00 1.80-2.40 mg/dL Current Medications Medications (Trade) Dose Ordered Sig/Durga Route PRN Reason Start Time Stop Time Status Last Admin Dose Admin Acetaminophen (TYLenol 500MG TAB) 500 mg Q4H PRN PO TEMPERATURE GREATER THAN 101.5 05/31/24 11:00 06/30/24 10:59 06/01/24 08:56 500 MG Albuterol Sulfate (Proventil 0.083% 2.5mg/3ml) 2.5 mg Q6H PRN IH WHEEZING 05/30/24 14:00 06/29/24 12:59 Albuterol Sulfate (Proventil 0.083% 2.5mg/3ml) 2.5 mg Q6HPRN IH 05/30/24 13:00 05/30/24 13:55 DC Albuterol Sulfate (Proventil 0.083% 2.5mg/3ml) 10 mg ONCE IH 05/30/24 04:30 05/30/24 12:45 DC 05/30/24 05:18 10 MG Amlodipine Besylate (NorvASC 5MG TAB) 5 mg DAILY PO 05/31/24 09:00 06/30/24 08:59 06/01/24 08:45 5 MG Atorvastatin Calcium (LIPItor 40MG) 40 mg DAILY PO 05/31/24 09:00 06/30/24 08:59 06/01/24 08:45 40 MG Brimonidine Tartrate (Alphagan P) 0.2ML OU BID BID OU 05/30/24 21:00 06/29/24 20:59 05/31/24 22:10 0.2 ML Ceftriaxone Sodium (ROCEphine 1G INJ) 1 gm Q12H IVPB 05/31/24 15:00 06/10/24 14:59 06/01/24 03:26 1 GM Gabapentin (NEURontin 100 mg CAP) 100 mg TID PO 05/30/24 14:00 06/29/24 13:59 06/01/24 08:45 100 MG Glycerin (Glycerin Adult Supp) 1 supp TID RC 05/31/24 21:00 06/02/24 10:00 06/01/24 08:56 1 SUPP Heparin Sodium (Porcine) (HEParin 5,000 UNIT VIAL) 5,000 unit BID SQ 05/30/24 09:00 06/29/24 08:59 06/01/24 08:55 5,000 UNIT Hydralazine HCl (APRESOLine 20MG INJ) 10 mg Q6H PRN IV For:SBP above 160;DBP above 90 05/30/24 05:30 06/29/24 05:29 Insulin Human Regular (humuLIN R 100 UNIT/ML 3ML) INSULIN SLIDING SCAL... ACHS SQ 05/30/24 07:30 06/29/24 07:29 05/31/24 11:50 2 UNIT Ketorolac Tromethamine (toRADol) 15 mg Q6H PRN IV MODERATE PAIN (4-6) 06/01/24 11:30 06/06/24 11:29 Lactated Ringer's 1,000 ml @ 60 mls/hr [id number] IV 05/30/24 05:30 05/31/24 17:15 DC 05/31/24 00:11 60 MLS/HR Latanoprost (Xalatan) 1 DROP OU HS HS OU 05/30/24 21:00 06/29/24 20:59 05/31/24 22:10 1 DROP Losartan Potassium (CozAAR 100MG TAB) 100 mg DAILY PO 05/31/24 09:00 05/30/24 13:53 DC Magnesium Sulfate 50 ml @ 0 mls/hr PROTOCOL PRN IV hypomagnesemia 05/30/24 05:30 06/29/24 05:29 Metoclopramide HCl (regLAN 10MG IV) 10 mg TIDAC IVP 05/31/24 21:00 06/30/24 20:59 06/01/24 08:45 10 MG Morphine Sulfate (morPHINE 2MG SYG) 2 mg ONCE STAT IVP 05/30/24 02:21 05/30/24 02:23 DC 05/30/24 02:30 2 MG Morphine Sulfate (morPHINE 2MG SYG) 2 mg Q4H PRN IVP SEVERE PAIN (7-10) 05/30/24 05:30 06/06/24 05:29 05/30/24 16:06 2 MG Ondansetron HCl (zoFRAN 4MG INJ) 4 mg Q6H PRN IV NAUSEA/VOMITING 05/30/24 05:30 06/29/24 05:29 Pantoprazole Sodium (PROTonix 40MG TAB) 40 mg DAILY PO 05/30/24 09:00 06/29/24 08:59 06/01/24 08:45 40 MG Piperacillin Sod/ Tazobactam Sod (Zosyn 3.375gm+NS 50ml) 3.375 gm ONCE STAT IVPB 05/30/24 02:43 05/30/24 02:47 DC 05/30/24 03:03 3.375 GM Piperacillin Sod/ Tazobactam Sod (Zosyn 3.375gm+NS 50ml) 3.375 gm Q12H IV 05/30/24 14:30 05/31/24 15:02 DC 05/31/24 14:24 3.375 GM Polyethylene Glycol (MIRalax 3350 17 GM POWD.PACK) 17 gm DAILY PO 05/31/24 09:00 06/30/24 08:59 06/01/24 08:45 17 GM Potassium Chloride 100 ml @ 100 mls/hr AD PRN IV POTASSIUM PROTOCOL 05/30/24 05:30 06/29/24 05:29 Potassium Chloride (K-Dur 10meq Sr Tab) 10 meq AD PRN PO POTASSIUM PROTOCOL 05/30/24 06:00 06/29/24 05:59 Potassium Chloride (KCl 10% Elixir 20meq/15ml) 10 meq AD PRN PO POTASSIUM PROTOCOL 05/30/24 05:30 06/29/24 05:29 Simethicone (Mylicon) 120 mg Q6H PRN PO GI GAS 05/31/24 21:00 06/30/24 20:59 Sodium Chloride 1,000 ml @ 100 mls/hr Q10H IV 05/31/24 17:30 06/30/24 17:29 06/01/24 07:35 100 MLS/HR Vancomycin HCl 250 ml @ 150 mls/hr Q24H IV 05/31/24 16:00 06/10/24 15:59 05/31/24 16:42 150 MLS/HR Vancomycin HCl (Vancomycin Protocol) 1 each AD IV 05/31/24 15:30 06/14/24 15:29 Vancomycin HCl (Vancomycin 1g/ 250ml Kit) 1 gm ONCE STAT IV 05/30/24 02:43 05/30/24 02:47 DC 05/30/24 03:50 1 GM DIAGNOSTICS / RADIOLOGY: [ ] ASSESSMENT: Sepsis secondary to UTI POA Gram-positive septicemia, POA Urinary Tract infection POA, Gram-negative rods Acute kidney injury POA , improving Electrolyte imbalance (hyponatremia, hyperkalemia)POA Leukocytosis POA Elevated Lipase POA Diabetes mellitus type 2 with the A1c 9.4% chronic anemia, POA Obesity POA Hypertension Hyperlipidemia History of breast CA currently in remission PLAN: Continue to monitor patient on medical/surgical floor. Sepsis secondary to Urinary Tract infection POA Urine analysis is positive for occult blood, leukocyte esterase 500, urine RBCs 26-50, WBCs too numerous to count and urine sodium 26. Urine culture resulted in Gram-negative rods, sensitivities pending Procalcitonin 2.83. We will stop Zosyn and start Rocephin1 g IV b.i.d. Gram positive septicemia, POA We will start the patient on vancomycin protocol We will consult ID in view of polymicrobial sepsis We will consult BIS polymicrobial sepsis Acute kidney injury POA Electrolyte imbalance (hyponatremia, hyperkalemia)POA Avoid Nephrotoxic drugs. Continue LR @60 ml/hrs. We will monitor electrolytes closely and replace them as per protocol Elevated Lipase POA Lipase level 240 and continue IV hydration. Diabetes mellitus type 2 with the A1c 9.4% A1c 9.4% Monitor blood glucose a.c. and HS. Follow insulin sliding scale. Hypoglycemia protocol. Hypertension Continue Norvasc 5 mg. Give hydralazine IV as needed if SBP above 170 mm hg. Hyperlipidemia Continue atorvastatin 40 mg Continue GI and DVT prophylaxis. PRN medications for pain, fever, nausea and vomiting are added. We will consult Physical therapy in view of generalized weakness and inability to walk as per her baseline ATTESTATION BY PHYSICIAN I have seen and examined the patient. I reviewed the documentation, medical decision making, and treatment plan as noted by the resident provider above. I agree with the findings and plan of care. Spencer Otoole MD, NIHITHA MD Jun 01, 2024 11:33
[2024-06-01] MEDS: ketOROlac 15MG/ML VIAL (15MG/ML) IV PRN (11:34)
[2024-06-01] MEDS: ketOROlac 15MG/ML VIAL (15MG/ML) IV SCH (14:00)
--- NOTE | 2024-06-01 14:40 | NUR ---
PLACED CALL TO TELE. PATIENT CURRENTLY RUNNING SINUS TACH AT 110.
--- NOTE | 2024-06-01 14:42 | HMCIMG ---
ABD 1VW HISTORY: Abdominal pain COMPARISON: 05/30/2024 FINDINGS: A frontal projection of the abdomen was obtained. A nonspecific bowel gas pattern is seen. Fecal material is seen in the colon. Postcholecystectomy changes are seen. Mild degenerative changes are seen. IMPRESSION: 1. A nonspecific bowel gas pattern is seen.
[2024-06-01] MEDS: hydroMORPHone 1 MG INJ IVP PRN (14:44)
--- NOTE | 2024-06-01 14:45 | NUR ---
PATIENT HAS HAD 3 LARGE BOWEL MOVEMENTS
--- NOTE | 2024-06-01 16:00 | NUR ---
RECEIVED CALL FROM TELE PATIENT CURRENTLY RUNNING AFIB AT 140. PATIENT ASSESSED FOR ANY CHEST PAIN / SOB. PATIENT STATING SHE IS HAVING SLIGHT DISCOMFORT IN CHEST. 02 HAS BEEN APPLIED EKG IN PROCESS. DR ALEJO NOTIFIED AND FURTHER ORDERS RECEIVED FOR CARDIAC ENZYMES AND TSH.
--- NOTE | 2024-06-01 16:40 | EKG ---
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
[2024-06-01 17:26] LABS: THYROID STIMULATING HORMONE 1.02 uIU/mL (0.36-3.74)
--- NOTE | 2024-06-01 17:30 | NUR ---
RECEIVED CALL FROM LAB WITH TROPONIN LEVEL OF 132. DR ALEJO NOTIFIED. NEW ORDERS IN PLACE
[2024-06-01] MEDS: ASPIRIN 81MG CHEW TAB PO ONE (18:08)
[2024-06-01] MEDS: NITROGLYCERIN 1GM OINT 1 INCH/1GM TD ONE (18:14)
[2024-06-02] VITALS (74 sets, daily range): BP systolic 79–173; BP diastolic 32–97; PULSE 68–153; RESP 19–44; TEMP 97.2–98.6; O2SAT 97–100
[2024-06-02 04:39] LABS: BASOPHILS % (AUTO) 0.4 % (0.0-5.0); EOSINOPHILS # (AUTO) 0.04 K/uL (0.00-0.70); EOSINOPHILS % (AUTO) 0.2 % (0.0-8.0); HEMATOCRIT 28.9 % (36-48); IMMATURE GRANULOCYTE ABSOLUTE 0.78 K/uL (0-1); LYMPHOCYTES # (AUTO) 2.1 K/uL (1.0-4.8); LYMPHOCYTES % (AUTO) 8.2 % (21.0-51.0); MEAN CORPUSCULAR HEMOGLOBIN 29.5 pg (27.0-33.0); MEAN CORPUSCULAR HGB CONC 32.5 g/dL (32.0-36.0); MEAN CORPUSCULAR VOLUME 90.6 fL (79-99); MONOCYTES # (AUTO) 2.1 K/uL (0.1-1.0); MONOCYTES % (AUTO) 8.3 % (3.0-13.0); NEUTROPHILS # (AUTO) 20.2 K/uL (1.8-7.7); NEUTROPHILS % (AUTO) 79.8 % (40.0-77.0); NUCLEATED RED BLOOD CELLS 0.4 % (0.0-0.19); PLATELET COUNT (AUTO) 320 K/uL (130-400); RED BLOOD CELL COUNT(AUTO) 3.19 MIL/uL (4.00-5.50); RED CELL DISTRIBUTION WIDTH 15.4 % (11.0-15.5); WHITE BLOOD COUNT (AUTO) 25.3 K/uL (4.8-10.8)
--- NOTE | 2024-06-02 04:48 | CONS ---
DATE OF SERVICE: 06/01/2024 INFECTIOUS DISEASE CONSULTATION NOTE REQUESTING PHYSICIAN: . REASON FOR CONSULTATION: Leukocytosis and gram-positive bacteremia. HISTORY OF PRESENT ILLNESS: The patient is a 73-year-old female with morbid obesity, hypertension and UTI who presented to the hospital with right hip pain. The patient also complained of some weakness in right hip. Claims she fell at home. Imaging of the abdomen and pelvis unremarkable. X-ray was also unremarkable. WBC on admission was 17,000. Lactic acid was positive at 2.4. Urinalysis was positive. Urine culture came back positive for Klebsiella pneumoniae. The patient was started on ceftriaxone. Blood culture has returned as gram-positive rods for which vancomycin has been started. The patient has no cough, no hemoptysis or pleuritic pain. No rashes or itchiness. PAST MEDICAL HISTORY: * Obesity. * Hypertension. * Diabetes mellitus. * Urinary tract infection. * Osteoarthritis. * Breast cancer. * Osteoporosis. PAST SURGICAL HISTORY: * Hysterectomy. * Cholecystectomy. * Eye surgery. * Hernia repair. ALLERGIES: No known drug allergy. CURRENT MEDICATIONS: Reviewed. SOCIAL HISTORY: No alcohol, tobacco or illicit drug use. FAMILY HISTORY: Positive for diabetes mellitus. REVIEW OF SYSTEMS: CONSTITUTIONAL: No fever or chills. No weight loss. EYES: No eye pain. No photophobia or diplopia. HENT: No sore throat. No rhinorrhea or earache. NECK: No neck pain or neck swelling. RESPIRATORY: No cough. No hemoptysis or pleuritic pain. CARDIOVASCULAR: No chest pain. No palpitations or orthopnea. GASTROINTESTINAL: Denies nausea. No vomiting. No abdominal pain. GENITOURINARY: No dysuria. No urinary frequency. CENTRAL NERVOUS SYSTEM: No headache, dyspnea or slurred speech. PSYCHIATRY: No depression. No suicidal ideation. MUSCULOSKELETAL: Positive for right hip pain. PHYSICAL EXAMINATION: GENERAL: Elderly female, awake. VITAL SIGNS: Temperature 98.2, pulse 107, respiratory rate 20, BP 150/75. EYES: No icterus. Pupils are equal and reactive. HENT: No oral thrush seen. Moist oral mucosa. NECK: Supple. No JVD or thyromegaly. LUNGS: Good air entry. No rales. No rhonchi. CARDIOVASCULAR: S1, S2 regular. No murmur heard. ABDOMEN: Obese. Soft. Bowel sound is present. CENTRAL NERVOUS SYSTEM: Awake, alert, oriented x 3. No focal deficits. SKIN: No rashes. No itchiness. LYMPHATIC: No peripheral lymphadenopathy. No deformity. No pressure ulcer. MUSCULOSKELETAL: Tenderness involving the right hip. LABORATORY DATA: Sodium 133, potassium 3.7, BUN 22, creatinine 1.0. WBC 23.6, hemoglobin 9.2, platelet 281. Urine culture growing Klebsiella pneumoniae. Blood culture shows gram-positive bert. RADIOLOGY: CT of the abdomen reported as no acute finding. ASSESSMENT: A 73-year-old female presenting with fever, chills and abdominal pain. CURRENT PROBLEMS: Include: * Gram-negative sepsis. * Urinary tract infection. * Gram-positive bacteremia, likely contaminant. * Diabetes mellitus. * Hypertension. * Anemia. * Right hip pain. PLAN: * Obtain CT of the right pelvis. * Continue ceftriaxone. * ____. * Followup cultures. * Continue pain management. * Continue DVT prophylaxis. * Continue nutritional support. * Monitor electrolytes. * The patient will be followed up closely. Thank you very much for allowing me to participating in the care of this patient. TID: [id number] RECEIPT: [id number]
[2024-06-02 04:50] LABS: POTASSIUM 3.9 mmol/L (3.5-5.1)
[2024-06-02 04:55] LABS: ALBUMIN 1.3 g/dL (3.5-5.0); BILIRUBIN,TOTAL 0.4 mg/dL (0.2-1.0); TOTAL PROTEIN, SERUM 6.8 g/dL (6.0-8.3)
--- NOTE | 2024-06-02 05:36 | NUR ---
RECEIVED CALL FROM TELE PATIENT CURRENTLY RUNNING HR 160. PATIENT ASSESSED FOR ANY CHEST PAIN / SOB, DENIES CHEST PAIN AT THIS TIME. PULSE RECHECKED VIA PULSE OX O2 AT 97% HR 89
[2024-06-02] MEDS ORDERED: CEFTRIAXONE 2GM VIAL IVPB SCH (06:30)
--- NOTE | 2024-06-02 06:30 | NUR ---
@0610 TELE MONITORING CALLED PATIENT ST 150's FOR 30 MIN,PATIENT IN BED RESTING, DENIES CHEST PAIN, DENIES SOB NOTIFIED PROVIDER TEACHER OF FAMILY AND CONSUMER SCIENCE ORDERED METOPROLOL 25MG PO BID, LOPRESSOR 5MG IV PUSH NOW PER ONEL BUSINESS WRITER
[2024-06-02] MEDS: metoPROLOL tartRATE 1 MG/ML 5ML VIAL IV ONE (06:49)
--- NOTE | 2024-06-02 06:58 | NUR ---
PATIENT BECAME ANXIOUS AFTER LOPRESSOR 5MG IVP GIVEN, BP 116/96 , PLACE ON O2 @2L NC. NOTIFIED PROVIDER MODELING DIRECTOR ROSAMARIA SEBASTIAN, NO NEW ORDERS GIVEN
[2024-06-02] MEDS ORDERED: LORazepam 2 MG/ML 1 ML VIAL IVP PRN (07:00)
--- NOTE | 2024-06-02 07:06 | NUR ---
PER TELE MONITORING RHYTHM SR 85 WITH PAC Addendum: 06/02/24 at 0708 by JOAQUIN STEIN RN RN BP 105/75
[2024-06-02] MEDS: LORazepam 2 MG/ML 1 ML VIAL IVP ONE (07:15)
--- NOTE | 2024-06-02 08:09 | NUR ---
CARDIOLOGY CONSULTATION [facility] called for new consultation. Consultation was ordered yesterday 06/[address] Otoole when notes indicate patient experiencing chest pain. No notification record. Consultation called this am 0805, Dr. Uribe microelectronics assembler today. Pending callback or financial underwriter to see.
--- NOTE | 2024-06-02 08:59 | EKG ---
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
[2024-06-02] MEDS: metoPROLOL tartRATE 25 MG TAB PO SCH (09:00)
[2024-06-02] MEDS: PANTOPrazole 40 MG/VIAL IVP SCH (09:00)
[2024-06-02 09:09] LABS: ABG BASE EXCESS -15.7 mmol/L (-2.0-3.0); ABG HCO3 8.7 mmol/L (21.0-28.0); ABG OXYGEN SATURATION 96.3 % (94.0-98.0); ABG PCO2 18 mmHg (32-45); ABG PH 7.302 (7.350-7.450); CARBON MONOXIDE 0.7 % (0.5-1.5); HHb 3.7; PO2, ARTERIAL BG 95.7 mmHg (83.0-108.0); VENT MODE, BG NC (ROOM AIR)
--- NOTE | 2024-06-02 09:15 | NUR ---
Rapid Response Upon primary assessment patient noted to be lethargic and arousable to shaking, oriented to self. On 2L NC with abdominal muscle use, tachypneic at 24 rr/min 97% on 2L. Skin assessment showed patient's bilateral lower extremities noted to be cool with mottling appearance. -Hospitalist vocational rehabilitation teacher answering service called to notify of change in condition, at same time Selene BINDERY CHIEF on unit and called her to room. Rapid response called due to worsening dyspnea, change in loc, color change of patient ble, concerning for sepsis, at 0850. Patient began on 1L bolus. Refer to [facility] for lab, imaging and consult orders. Orders to transfer to PCCU obtained from custom leather products maker BINDERY CHIEF. Report called to Viola LAWSON at 0915 for transfer, transferred to room 227
[2024-06-02 09:18] LABS: HEMATOCRIT 28.9 % (36-48); MEAN CORPUSCULAR HEMOGLOBIN 29.3 pg (27.0-33.0); MEAN CORPUSCULAR HGB CONC 32.2 g/dL (32.0-36.0); MEAN CORPUSCULAR VOLUME 91.2 fL (79-99); NUCLEATED RED BLOOD CELLS 0.4 % (0.0-0.19); RED BLOOD CELL COUNT(AUTO) 3.17 MIL/uL (4.00-5.50); RED CELL DISTRIBUTION WIDTH 15.9 % (11.0-15.5); WHITE BLOOD COUNT (AUTO) 23.9 K/uL (4.8-10.8)
[2024-06-02 09:25] LABS: CREATININE 1.3 mg/dL (0.5-1.0)
[2024-06-02] MEDS ORDERED: LACTATED RINGERS 1000ML 1,000 ML IV SCH ×2 (09:30→10:30)
--- NOTE | 2024-06-02 09:30 | NUR ---
transfer from [facility] via bed post rapid response pt lethargic anxious fluids infusing @999 LR attempted iv several times unable to obtain blood pressure with machine and manual cuff resp=24 labored pt moaning ,hr 120 AFIB per desk monitor
--- NOTE | 2024-06-02 09:35 | NUR ---
PT TRANS FERED TO IC, PLACE ON BIPAP , LEVOPHED DRIP STARTED NOTED IN EMR, PIV X2 STARTED. Luis Felipe MARCOS NP UPDATED IN PT CONDITION, VS, LABS AND ABG RESULTS. NEW ORDERS RECEIVED AND NOTED.
--- NOTE | 2024-06-02 09:52 | HMCIMG ---
CHEST 1VW HISTORY: Shortness of breath COMPARISON: 11/08/2020 FINDINGS: A frontal projection of the chest was obtained. Prominent interstitial markings are seen with possible superimposed infiltrates. The heart is borderline enlarged. Degenerative changes are seen. No evidence of aortic calcification is seen. IMPRESSION: 1. No acute pulmonary infiltrate is seen. Prominent interstitial markings are seen.
[2024-06-02] MEDS: SODIUM BICARB 50MEQ 50ML VIAL IV ONE ×3 (10:00→22:43)
[2024-06-02] MEDS ORDERED: NOREPINEPHRIN 4MG/NS 250ML 250 ML IV SCH (10:30)
[2024-06-02] MEDS ORDERED: PoTASSium chloRIDE 20MEQ/10ML 20 MEQ in 0.9%NACL 1000ML 1,000 ML IV SCH (11:00)
[2024-06-02] MEDS ORDERED: D5W-1/2 NS/20MEQ KCL 1,000 ML IV SCH (11:00)
[2024-06-02] MEDS ORDERED: MAGNESIUM 2GM PREMIX 50ML 50 ML IV SCH ×2 (11:00→23:30)
[2024-06-02] MEDS ORDERED: 0.9%NACL 1000ML 1,000 ML IV SCH (11:00)
--- NOTE | 2024-06-02 11:00 | PN ---
INFECTIOUS DISEASE PROGRESS NOTE Date of Service: Jun 02, 2024 SUBJECTIVE: This is a 73-year-old female patient who was admitted to the hospital with chief complaint of abdominal pain. A CT of the abdomen done showed 9 mm right lung nodule and a nonobstructing left periumbilical hernia. Urine cultures and blood cultures collected on admission came back positive for Klebsiella pneumoniae. Today however patient developed hypoxic respiratory distress and hypotension and was transferred to the ICU room 207 were patient was seen and examined. Patient is currently on BiPAP and plan is to intubate later today. Patient is currently on vasopressor support. Observe mottling to lower extremities. WBC remains high at 23.9 but no fever this morning, temperature 97.9. We will discontinue ceftriaxone and start patient on meropenem1 g IV every8 hours. We will also continue on vancomycin per pharmacy protocol. PHYSICAL EXAM EYES: Anicteric. Pupils equal and reactive. HENT: No oral thrush seen, moist Oral mucosa NECK: Supple, no JVD or thyromegaly. LUNGS: Good air entry. No rales, no rhonchi. Oxygen support. CARDIOVASCULAR: S1, S2 regular. No murmur heard. ABDOMEN: Soft, non tender, bowel sounds present, no organomegaly. CENTRAL NERVOUS SYSTEM: Awake, alert, oriented x 3. SKIN: No rashes, no swelling. LYMPHATICS: No peripheral lymphadenopathy. MUSCULOSKELETAL: No joint swelling, erythema or tenderness. EXTREMITIES: No cyanosis or clubbing BACK: No deformity, no pressure ulcer. GENITOURINARY: No dysuria or hematuria. Vital Sign (Last 12 Hours) 06/02/24 06/02/24 06/02/24 06/02/24 00:00 04:00 06:49 07:20 Temp 97.9 98.2 97.9 Pulse 94 110 156 84 Resp 20 22 20 B/P (MAP) 115/66 124/61 124/72 99/59 Pulse Ox 100 99 99 O2 Delivery Nasal Cannula Nasal Cannula Nasal Cannula O2 Flow Rate 3.0 3.0 2.0 FiO2 24 Intake & Output (last 24hrs) 06/01/24 06/01/24 06/02/24 15:00 23:00 07:00 Intake Total 800 ml Balance 800 ml LABS: Laboratory: Test 06/02/24 09:08 06/02/24 09:07 06/02/24 08:55 06/02/24 04:32 Range/Units White Blood Count 23.9 H 4.8-10.8 K/uL Red Blood Count 3.17 L 4.00-5.50 MIL/uL Hemoglobin 9.3 L 12.0-16.0 g/dL Hematocrit 28.9 L 36-48 % Mean Corpuscular Volume 91.2 79-99 fL Mean Corpuscular Hemoglobin 29.3 27.0-33.0 pg Mean Corpuscular Hemoglobin Concent 32.2 32.0-36.0 g/dL Red Cell Distribution Width 15.9 H 11.0-15.5 % Platelet Count 268 130-400 K/uL Mean Platelet Volume 12.2 H 7.5-10.5 fL Nucleated Red Blood Cells 0.4 H 0.0-0.19 % D-Dimer Quantitative (PE/DVT) 6583 *H 0-500 ng/mL Sodium Level 134 L 136-145 mmol/L Potassium Level 5.0 3.5-5.1 mmol/L Chloride Level 103 101-111 mmol/L Carbon Dioxide Level 12 L 21-32 mmol/L Blood Urea Nitrogen 19 H 7-18 mg/dL Creatinine 1.3 H 0.5-1.0 mg/dL Glomerular Filtration Rate Calc 44 >90 mL/min Random Glucose 175 H 70-105 mg/dL Whole Blood Ketones Quantitative 2.7 H 0.0-0.6 mmol/L Lactic Acid Level 5.0 H 0.8-2.5 mmol/L Total Calcium 7.9 L 8.5-10.1 mg/dL Ammonia 43 H 11-32 umol/L Blood Gas Specimen Type Arterial Arterial Blood pH 7.302 L 7.350-7.450 Arterial Blood Partial Pressure CO2 18 *L 32-45 mmHg Arterial Blood Partial Pressure O2 95.7 83.0-108.0 mmHg Arterial Blood HCO3 8.7 L 21.0-28.0 mmol/L Arterial Blood Oxygen Saturation 96.3 94.0-98.0 % Arterial Blood Base Excess -15.7 L -2.0-3.0 mmol/L Hemoglobin (Blood Gas) 9.9 L 12.0-16.0 g/dL Sodium (Blood Gas) 130 L 136-145 MMOL/L Bedside Potassium (Blood Gas) 5.3 H 3.4-4.5 MMOL/L Bedside Chloride (Blood Gas) 106 98-107 MMOL/L Bedside Glucose (Blood Gas) 175 H 65-95 MG/DL Bedside Ionized Calcium (Blood Gas) 1.09 L 1.15-1.33 MMOL/L Bedside Lactic Acid (Blood Gas) 4.92 *H 0.36-0.75 MMOL/L Blood Gas Temperature 37.0 35.5-37.0 CELSIUS Blood Gas Flow-by 2.00 0.00-15.00 L/min Blood Gas Vent Mode NC ROOM AIR FiO2 28.0 % Blood Gas Specimen Comment LR,FREIST-PROFESSOR OF THEOLOGY Whole Blood Glucose 173 H 70-110 MG/DL Immature Granulocyte % (Auto) 3.1 H 0-1 % Neutrophils (%) (Auto) 79.8 H 40.0-77.0 % Lymphocytes (%) (Auto) 8.2 L 21.0-51.0 % Monocytes (%) (Auto) 8.3 3.0-13.0 % Eosinophils (%) (Auto) 0.2 0.0-8.0 % Basophils (%) (Auto) 0.4 0.0-5.0 % Neutrophils # (Auto) 20.2 H 1.8-7.7 K/uL Lymphocytes # (Auto) 2.1 1.0-4.8 K/uL Monocytes # (Auto) 2.1 H 0.1-1.0 K/uL Eosinophils # (Auto) 0.04 0.00-0.70 K/uL Basophils # (Auto) 0.10 0.00-0.20 K/uL Absolute Immature Granulocyte (auto 0.78 0-1 K/uL Total Bilirubin 0.4 0.2-1.0 mg/dL Aspartate Amino Transf (AST/SGOT) 34 10-37 U/L Alanine Aminotransferase (ALT/SGPT) 30 12-78 U/L Alkaline Phosphatase 357 H 50-136 U/L Troponin I High Sensitivity 142 *H 4-50 ng/L Total Protein 6.8 6.0-8.3 g/dL Albumin 1.3 L 3.5-5.0 g/dL Test 06/01/24 20:20 06/01/24 10:40 05/31/24 11:08 Range/Units Stool Occult Blood POSITIVE H NEGATIVE Total Creatine Kinase 44 # 21-232 U/L Thyroid Stimulating Hormone (TSH) 1.02 0.36-3.74 uIU/mL Bedside Glucose Comment Notified Nurse ASSESSMENT: Klebsiella pneumoniae bacteremia. Urinary tract infection with Klebsiella pneumoniae. Leukocytosis. Acute hypoxic respiratory failure requiring oxygen support. Abdominal pain. Diabetes mellitus. PLAN: Discontinue ceftriaxone. Start meropenem1 g IV Q 8 hours. Currently on vancomycin per pharmacy protocol. Continue GI prophylaxis. Continue oxygen support. Continue pain management. This case was reviewed and discussed with my supervising physician and the above assessment and plan was formulated and agreed upon. ATTESTATION BY PHYSICIAN I have seen and examined the patient. I reviewed the documentation, medical decision making, and treatment plan as noted by the mid-level provider above. I agree with the findings and plan of care. MARY CHAN MD, MIRTA L [facility] Jun 02, 2024 11:00
--- NOTE | 2024-06-02 11:02 | CONS ---
[facility] CARDIOLOGY CONSULTATION REPORT Cardiology consultation note dictated for Lexus Hahn MD Primary ground hand: Calvin Swartz MD Date Patient Seen: Jun 02, 2024 Requesting Physician: Spencer Otoole MD Reason for Consultation: Chest pain History of Present Illness: This is a 73-year-old female with a past medical history of hypertension, hypercholesteremia, diabetes mellitus type 2, angina, LHC on 11/10/2020 with 90% stenosis to the small diagonal otherwise nonobstructive CAD with an EF of 60% treated medically, mild aortic stenosis with a gradient of 15 mmHg, 2D Echo on06/09/2019 with an EF of 55-60%, stage II diastolic dysfunction, hypokinesis in the basal inferoseptal wall, moderately dilated left atrium, mild MAC with mild MR, asthma, single kidney, chronic low back and hip pain, and CKD stage 3a who presented to the ED with complaints of abdominal pain. The patient was diagnosed with sepsis and UTI. Urine culture and preliminary blood culture drawn on 05/30/[address] of the abdomen/pelvi s from 05/31 revealing a small fat containing nonobstructing left periumbilical hernia with no evidence for any acute intra-abdominal or pelvic process noted, and a 9 mm right lung nodule. Leukocytosis on admission with a WBC of 17.4 that has now increased to 23.9 K/UL. At 6:10 a.m. this morning the patient demonstrated sinus tachycardia with heart rates in the 150s that lasted for approximately 30 minutes, she received Lopressor 5 mg IV and Ativan. A rapid response was called and she was transferred to PCCU. Upon visit, she is currently lethargic and arousable to painful stimuli only. She is being transferred to ICU bed 207 now. Cardiology has been consulted for chest pain, but able to obtain an HPI. Medical and clinic records have been reviewed. Troponin of 13, 132.1, and 142. On chart review, telemetry strip from 06/01/2024 at 1553 demonstrated atrial fibrillation with RVR with a hr of 154bpm. She received Nitro-glycerin ointment and aspirin 162mg at 6:00 p.m. on 06/01/2024. She is currently sinus tachycardia. Past Medical History: As per HPI and summarized below Past Surgical History: Cholecystectomy Left breast lumpectomy Bladder surgery Multiple gastrointestinal surgeries Family History: Mother and father have a history of CAD Social History: Unknown Habits: Unknown Home Meds: albuterol nebulizer albuterol rescue inhaler alendronate 70 mg weekly atorvastatin 40 mg daily losartan 100 mg daily nifedipine 30 mg daily metformin 500 mg b.i.d. naproxen 500 mg b.i.d. p.r.n. pain nortriptyline 75 mg q.h.s. pantoprazole 40 mg daily brimonidine tartrate 0.2% drops ou b.i.d. vitamin d3 5000 units weekly cyclobenzaprine 10 mg q.h.s. p.r.n. trulicity 0.75 mg per 0.5 ml pen weekly gabapentin 100 mg t.i.d. novolog insulin 70-30, 100 units subq b.i.d. integra plus capsule daily latanoprost 0.0 0 5% ou q.h.s. Current Meds: Current Medications Medications Dose Ordered Sig/Durga Start Time Stop Time Status Last Admin Heparin Sodium (Porcine) 5,000 unit BID 05/30/24 09:00 06/29/24 08:59 06/01/24 20:32 Hydralazine HCl 10 mg Q6H PRN 05/30/24 05:30 06/29/24 05:29 Ondansetron HCl 4 mg Q6H PRN 05/30/24 05:30 06/29/24 05:29 Insulin Human Regular INSULIN SLIDING SCAL... ACHS 05/30/24 07:30 06/29/24 07:29 06/02/24 06:13 Potassium Chloride 100 ml @ 100 mls/hr AD PRN 05/30/24 05:30 06/29/24 05:29 Potassium Chloride 10 meq AD PRN 05/30/24 05:30 06/29/24 05:29 Potassium Chloride 10 meq AD PRN 05/30/24 06:00 06/29/24 05:59 Magnesium Sulfate 50 ml @ 0 mls/hr PROTOCOL PRN 05/30/24 05:30 06/29/24 05:29 Polyethylene Glycol 17 gm DAILY 05/31/24 09:00 06/30/24 08:59 06/01/24 08:45 Atorvastatin Calcium 40 mg DAILY 05/31/24 09:00 06/30/24 08:59 06/01/24 08:45 Brimonidine Tartrate 0.2ML OU BID BID 05/30/24 21:00 06/29/24 20:59 06/01/24 20:26 Gabapentin 100 mg TID 05/30/24 14:00 06/29/24 13:59 06/01/24 20:25 Latanoprost 1 DROP OU HS HS 05/30/24 21:00 06/29/24 20:59 06/01/24 20:26 Amlodipine Besylate 5 mg DAILY 05/31/24 09:00 06/30/24 08:59 06/01/24 08:45 Albuterol Sulfate 2.5 mg Q6H PRN 05/30/24 14:00 06/29/24 12:59 Acetaminophen 500 mg Q4H PRN 05/31/24 11:00 06/30/24 10:59 06/01/24 08:56 Vancomycin HCl 1 each AD 05/31/24 15:30 06/14/24 15:29 Vancomycin HCl 250 ml @ 150 mls/hr Q24H 05/31/24 16:00 06/10/24 15:59 06/01/24 17:29 Sodium Chloride 1,000 ml @ 100 mls/hr Q10H 05/31/24 17:30 06/30/24 17:29 06/01/24 20:36 Simethicone 120 mg Q6H PRN 05/31/24 21:00 06/30/24 20:59 Metoclopramide HCl 10 mg TIDAC 05/31/24 21:00 06/30/24 20:59 06/01/24 17:29 Hydromorphone HCl 1 mg Q2H PRN 06/01/24 14:00 06/06/24 13:59 06/02/24 03:03 Ketorolac Tromethamine 15 mg Q6H 06/01/24 14:00 06/06/24 13:59 06/02/24 02:11 Pantoprazole Sodium 40 mg DAILY 06/02/24 09:00 07/02/24 08:59 Ceftriaxone Sodium 2 gm Q24H 06/03/24 02:30 06/13/24 02:29 Metoprolol Tartrate 25 mg BID 06/02/24 09:00 07/02/24 08:59 Lorazepam 0.5 mg Q6H PRN 06/02/24 07:00 06/09/24 06:59 Lactated Ringer's 1,000 ml @ 0 mls/hr Q0M 06/02/24 10:30 07/02/24 10:29 Norepinephrine 250 ml @ 0 mls/hr PROTOCOL 06/02/24 10:30 07/02/24 10:29 Review of Systems: UNABLE TO OBTAIN A REVIEW OF SYSTEMS THE PATIENT IS LETHARGIC Physical Examination: GENERAL: In respiratory distress. Bipap is to be placed. HEAD: Normal with no signs of head trauma. EYES: PERRLA, EOMI, conjunctiva and sclera normal. ENT: Unable to determine hearing as the patient is not responding to her name NECK: Supple without JVD. There is no tenderness, lymphadenopathy, or masses. No thyromegaly. Normal carotid upstrokes without bruits. LUNGS: Diminished breath sounds anteriorly. HEART: Tachycardic rate and rhythm. Normal S1 and S2 without murmurs, gallop or rub. VASC: Bilateral lower extremities with mottling, bilateral DP pulses 2+ bilateral ABD: Bowel sounds normal, soft, nontender, no masses, no organomegaly. No audible bruits. : Not examined LYMPH: No lymphadenopathy noted. EXT: No clubbing, cyanosis or edema. SKIN: No rashes or lesions noted. NEURO: Lethargic Vital Signs (last 8hr) Date Time Temp Pulse Resp B/P (MAP) Pulse Ox O2 Delivery O2 Flow Rate FiO2 06/02/24 07:20 97.9 84 20 99/59 99 Nasal Cannula 2.0 24 06/02/24 06:49 156 124/72 06/02/24 04:00 98.2 110 22 124/61 99 Nasal Cannula 3.0 Laboratory: Hematology Labs: Test 06/02/24 09:08 06/02/24 04:32 Range/Units White Blood Count 23.9 H 4.8-10.8 K/uL Red Blood Count 3.17 L 4.00-5.50 MIL/uL Hemoglobin 9.3 L 12.0-16.0 g/dL Hematocrit 28.9 L 36-48 % Mean Corpuscular Volume 91.2 79-99 fL Mean Corpuscular Hemoglobin 29.3 27.0-33.0 pg Mean Corpuscular Hemoglobin Concent 32.2 32.0-36.0 g/dL Red Cell Distribution Width 15.9 H 11.0-15.5 % Platelet Count 268 130-400 K/uL Mean Platelet Volume 12.2 H 7.5-10.5 fL Nucleated Red Blood Cells 0.4 H 0.0-0.19 % Immature Granulocyte % (Auto) 3.1 H 0-1 % Neutrophils (%) (Auto) 79.8 H 40.0-77.0 % Lymphocytes (%) (Auto) 8.2 L 21.0-51.0 % Monocytes (%) (Auto) 8.3 3.0-13.0 % Eosinophils (%) (Auto) 0.2 0.0-8.0 % Basophils (%) (Auto) 0.4 0.0-5.0 % Neutrophils # (Auto) 20.2 H 1.8-7.7 K/uL Lymphocytes # (Auto) 2.1 1.0-4.8 K/uL Monocytes # (Auto) 2.1 H 0.1-1.0 K/uL Eosinophils # (Auto) 0.04 0.00-0.70 K/uL Basophils # (Auto) 0.10 0.00-0.20 K/uL Absolute Immature Granulocyte (auto 0.78 0-1 K/uL Chemistry Labs: Test 06/02/24 09:08 06/02/24 08:55 06/02/24 04:32 06/01/24 10:40 Range/Units Sodium Level 134 L 136-145 mmol/L Potassium Level 5.0 3.5-5.1 mmol/L Chloride Level 103 101-111 mmol/L Carbon Dioxide Level 12 L 21-32 mmol/L Blood Urea Nitrogen 19 H 7-18 mg/dL Creatinine 1.3 H 0.5-1.0 mg/dL Glomerular Filtration Rate Calc 44 >90 mL/min Random Glucose 175 H 70-105 mg/dL Whole Blood Ketones Quantitative 2.7 H 0.0-0.6 mmol/L Lactic Acid Level 5.0 H 0.8-2.5 mmol/L Total Calcium 7.9 L 8.5-10.1 mg/dL Ammonia 43 H 11-32 umol/L Whole Blood Glucose 173 H 70-110 MG/DL Total Bilirubin 0.4 0.2-1.0 mg/dL Aspartate Amino Transf (AST/SGOT) 34 10-37 U/L Alanine Aminotransferase (ALT/SGPT) 30 12-78 U/L Alkaline Phosphatase 357 H 50-136 U/L Troponin I High Sensitivity 142 *H 4-50 ng/L Total Protein 6.8 6.0-8.3 g/dL Albumin 1.3 L 3.5-5.0 g/dL Total Creatine Kinase 44 # 21-232 U/L Thyroid Stimulating Hormone (TSH) 1.02 0.36-3.74 uIU/mL Test 05/31/24 11:08 Range/Units Bedside Glucose Comment Notified Nurse Coagulation Labs: Test 06/02/24 09:08 Range/Units D-Dimer Quantitative (PE/DVT) 6583 *H 0-500 ng/mL Diagnostics / Radiology: Impression and Plan: Chest pain Abdominal pain Sepsis Bacteremia, preliminary blood culture results UA Klebsiella pneumonia UTI, urine culture positive for Klebsiella pneumoniae Leukocytosis HTN HLD DM type II Angina CAD s/p LHC on 11/10/2020 with 90% stenosis to the small diagonal otherwise nonobstructive CAD with an EF of 60% treated medically Mild aortic stenosis with a gradient of 15 mmHg 2D Echo on06/09/2019 with an EF of 55-60%, stage II diastolic dysfunction, hypokinesis in the basal inferoseptal wall. moderately dilated left atrium, mild MAC with mild MR Asthma Single kidney Chronic low back and hip pain CKD stage 3a Chest pain Troponin of 13, 132.1, and 142, likely multifactorial from Sepsis, Acute respiratory distress and tachycardia Unable to interview patient in regards to chest pain episode as she is lethargic Chart review revealed the patient converted to Afib with RVR at 1553 then received Nitro-glycerin ointment and aspirin 162mg at 6:00 p.m. 06/01/2024 -Obtain 2D echo to assess LV function and valvular pathology -Cardiac enzyme x1 to assess trend Paroxysmal atrial fibrillation TSH is normal at 1.02 Telemetry strip from 06/01/2024 at 1553 demonstrated atrial fibrillation with RVR with a hr of 154bpm No additional telemetry strips in the chart demonstrating Afib. She is currently sinus tachycardia. -Continue Metoprolol tartrate 25mg BID Sinus Tachycardia HR in the 150's this morning, she received Lopressor 5mg IV and Ativan around 0700 this morning ATTESTATION BY PHYSICIAN I have seen and examined the patient, reviewed the above documentation, participated in medical decision making, made necessary modifications, and agree with the treatment plan as documented by my mid-level provider above. Peculiar presentation. I believe the patient has had sinus tachycardia and currently she has an irregular rapid rhythm that does seem to have some organized atrial activity, possible multiform atrial tachycardia or sinus ta chycardia with premature atrial beats. Her legs are mottled, yet warm and pulses are present. Blood pressure is currently 168 and heart rate is over 150. My plan is to initiate treatment with IV diltiazem and observe rhythm and rate. MD DAKOTAH Newberry [facility]IE [facility] Jun 02, 2024 11:02 LEXUS HAHN MD Jun 02, 2024 12:26
--- NOTE | 2024-06-02 11:02 | PN ---
[facility] PROGRESS NOTE Date Patient Seen: Jun 02, 2024 Time of Visit: 10:59 Supervising Physician: Dr. Terence Porras Primary Care Physician: Admitting team: [facility] hospitalist team Outpatient Specialists: Inpatient Consults: [facility], critical Care team Infectious disease physician/team PROBLEM LIST: Euglycemic DKA- patient is on Jardiance as OP Acute toxic metabolic encephalopathy Acute high anion gap metabolic acidosis secondary to DKA Acute renal failure due to ATN from sepsis Acute sepsis without septic shock, blood cultures on 06/01/2024 showed no growth after 48 hours. Acute complicated cystitis, POA, Gram-negative rods Intractable abdominal pain, POA Acute on chronic constipation, with impaction noted on CT, POA Acute hip pain: Bilateral hips joint space narrowing and degenerative changes 9 mm right lung nodule, incidental finding Small fat-containing nonobstructing left periumbilical hernia. Gram-positive septicemia, POA Electrolyte derangement (hyponatremia, hyperkalemia), POA Leukocytosis POA Elevated Lipase POA Uncontrolled diabetes mellitus type 2 with the A1c 9.4% Chronic anemia, POA Obesity, BMI 32.1 POA Hypertension Hyperlipidemia History of breast CA currently in remission INTERVAL HISTORY: [Blood pressure is 150/75 with a heart rate of 107, afebrile on room air. Patient has been given suppository and enemas for constipation. Her WBCs morning increased to 23, small left shift with neutrophils at 81%. BMP shows improved serum bicarbonate from 15 to 21. Alkaline phosphatase is elevated to 320, likely in the setting of acute infection. Her lactic acid improved from 2.4-1.7. Pro count slightly elevated at 2.83. Patient was given IV fluids bicarb yesterday with improvement. ID is consulted pending recommendation. Patient continues on Rocephin vancomycin. Her urine culture is positive for Klebsiella pneumoniae with resistance to nitrofurantoin, but is sensitive to cephalosporins. Blood culture was one of two Gram-positive rods with is negative 2/2 after 48 hours. She complains of abdominal pain to RLQ. This is the same area she is noted to have impaction on CT, consistent with fecal impaction constipation. No signs of bowel obstruction per imaging.] 06/02 there was a rapid response initiation this morning for AFib RVR and periods of decreased mental status. Patient is found to be lethargic following simple commands with clammy and mottled skin throughout. We sent some lab this morning and patient had metabolic acidosis with high anion gap. Ketone was elevated at 2.7. Glucose 175. Patient has euglycemic diabetic ketoacidosis. We will need to start patient on insulin drip. So, she was transferred to ICU. Her ABG with pH 7.302, pCO2 18, PO2 two is 95 bicarb is 8.7 O2 sat 96, base excess -15. We had given her bicarb earlier given acidosis but knowing DKA, no need for bicarb. We gave her 2 L of IV fluid and patient blood pressure remains okay but went to AFib RVR up to 150. Start patient on amiodarone drip. Place her on bipap for now. Criticall ill. REVIEW OF SYSTEMS: 12 point ROS reviewed with patient. Pertinent positives mentioned above. Otherwise negative. PHYSICAL EXAM: GENERAL: Alert, awake oriented x 3, uncomfortable HEENT: EOMI, Sclera non icteric, moist mucosa NECK: Supple, no JVD, trachea midline LUNGS: Clear breath sounds bilaterally. No wheezes HEART: Regular rate and rhythm. Normal S1 and S2, without murmurs ABD: Obese. Abdomen tender, round. Bowel sounds diminished. EXT: No clubbing cyanosis or edema NEURO: Alert and oriented x3, follows commands, no neuro deficits. Vital Signs (last 8hr) Date Time Temp Pulse Resp B/P (MAP) Pulse Ox O2 Delivery O2 Flow Rate FiO2 06/02/24 07:20 97.9 84 20 99/59 99 Nasal Cannula 2.0 24 06/02/24 06:49 156 124/72 06/02/24 04:00 98.2 110 22 124/61 99 Nasal Cannula 3.0 LABS: Hematology Labs: Test 06/02/24 09:08 06/02/24 04:32 Range/Units White Blood Count 23.9 H 4.8-10.8 K/uL Red Blood Count 3.17 L 4.00-5.50 MIL/uL Hemoglobin 9.3 L 12.0-16.0 g/dL Hematocrit 28.9 L 36-48 % Mean Corpuscular Volume 91.2 79-99 fL Mean Corpuscular Hemoglobin 29.3 27.0-33.0 pg Mean Corpuscular Hemoglobin Concent 32.2 32.0-36.0 g/dL Red Cell Distribution Width 15.9 H 11.0-15.5 % Platelet Count 268 130-400 K/uL Mean Platelet Volume 12.2 H 7.5-10.5 fL Nucleated Red Blood Cells 0.4 H 0.0-0.19 % Immature Granulocyte % (Auto) 3.1 H 0-1 % Neutrophils (%) (Auto) 79.8 H 40.0-77.0 % Lymphocytes (%) (Auto) 8.2 L 21.0-51.0 % Monocytes (%) (Auto) 8.3 3.0-13.0 % Eosinophils (%) (Auto) 0.2 0.0-8.0 % Basophils (%) (Auto) 0.4 0.0-5.0 % Neutrophils # (Auto) 20.2 H 1.8-7.7 K/uL Lymphocytes # (Auto) 2.1 1.0-4.8 K/uL Monocytes # (Auto) 2.1 H 0.1-1.0 K/uL Eosinophils # (Auto) 0.04 0.00-0.70 K/uL Basophils # (Auto) 0.10 0.00-0.20 K/uL Absolute Immature Granulocyte (auto 0.78 0-1 K/uL Chemistry Labs: Test 06/02/24 09:08 06/02/24 08:55 06/02/24 04:32 06/01/24 10:40 Range/Units Sodium Level 134 L 136-145 mmol/L Potassium Level 5.0 3.5-5.1 mmol/L Chloride Level 103 101-111 mmol/L Carbon Dioxide Level 12 L 21-32 mmol/L Blood Urea Nitrogen 19 H 7-18 mg/dL Creatinine 1.3 H 0.5-1.0 mg/dL Glomerular Filtration Rate Calc 44 >90 mL/min Random Glucose 175 H 70-105 mg/dL Whole Blood Ketones Quantitative 2.7 H 0.0-0.6 mmol/L Lactic Acid Level 5.0 H 0.8-2.5 mmol/L Total Calcium 7.9 L 8.5-10.1 mg/dL Ammonia 43 H 11-32 umol/L Whole Blood Glucose 173 H 70-110 MG/DL Total Bilirubin 0.4 0.2-1.0 mg/dL Aspartate Amino Transf (AST/SGOT) 34 10-37 U/L Alanine Aminotransferase (ALT/SGPT) 30 12-78 U/L Alkaline Phosphatase 357 H 50-136 U/L Troponin I High Sensitivity 142 *H 4-50 ng/L Total Protein 6.8 6.0-8.3 g/dL Albumin 1.3 L 3.5-5.0 g/dL Total Creatine Kinase 44 # 21-232 U/L Thyroid Stimulating Hormone (TSH) 1.02 0.36-3.74 uIU/mL Test 05/31/24 11:08 Range/Units Bedside Glucose Comment Notified Nurse Coagulation Labs: Test 06/02/24 09:08 Range/Units D-Dimer Quantitative (PE/DVT) 6583 *H 0-500 ng/mL DIAGNOSTICS / RADIOLOGY RESULTS: [ ] PLAN NEURO: Minimize central acting medications as possible. Fall Precautions. Well lighted room through the day and minimize interruptions through the night to prevent acute delirium. PULMONARY: Supplemental 02 as needed Titrate Fio2 to keep Spo2 > or = 90% DuoNebs and CPT as needed IS hourly while awake for pulmonary hygiene Out of bed to chair as tolerated VAP Bundle Vent/BIPAP Settings: BIPAP 10/5/100% CARDIOVASCULAR: Follow hemodynamics. Titrate vasopressor to keep MAP >65 or systolic blood pressure >95mmHg DRIPS: LR LINES: PIV GI & NUTRITION: Continue nutritional support Aspirations precautions Prokinetic agents and laxatives as needed KIDNEYS & ELECTROLYTES: Strict monitoring of intake and output Daily weights Avoid nephrotoxic agents Monitor electrolytes and replace as needed Goal urine output of 30mL/hr or 0.5mL/kg/hr ENDOCRINE: Maintain blood glucose between 100-180 at all times. Insulin sliding scale for blood glucose management Euglycemic DKA- continue with protocol INFECTIOUS DISEASE: Trend temperature. Cruz-culture if febrile. Micro: Urine Antibiotics: Meropenem HEMATOLOGY & COAGULATION: Monitor H&H. Keep Hgb > 7 Transfuse 1 unit of PRBC for Hgb < 7 Transfuse 1 pack of platelets of platelets < 20, 000 Watch for any signs and symptoms of bleeding SKIN: Pressure ulcer prevention per facility protocol Rehab: PT/OT Prophylaxis: GI: Pepcid DVT: Heparin Code Status: Full Resuscitation Disposition: ICU Other: Total patient care time exceeds 74 minutes excluding all procedures. Case was discussed and seen with my supervising physician. The above plan was formulated and agreed upon. JORGE ARAMBULA [facility] Jun 02, 2024 11:02
[2024-06-02 11:45] LABS: CREATININE 1.5 mg/dL (0.5-1.0); POTASSIUM 4.5 mmol/L (3.5-5.1)
[2024-06-02] MEDS: dexmedeTOMIDine 400MCG/NS100ML IV STA (12:27)
[2024-06-02] MEDS: dexmedeTOMIDine 400MCG/NS100ML IV ONE (12:28)
[2024-06-02] MEDS: INSULIN REGULAR, HUMAN 3ML 100 UNIT in 0.9%NACL 100ML 100 ML IV SCH (12:41)
--- NOTE | 2024-06-02 12:58 | PN ---
[facility] PROGRESS NOTE Date of Service: Jun 02, 2024 Time of Service: 12:38 SUBJECTIVE: This is a 73-year-old female patient with a past medical history of hypertension, diabetes mellitus type 2, osteoporosis, osteoarthritis, asthma and breast CA currently in remission presented to the ED with a chief complaint of generalized abdominal pain started 8 days ago. The pain is aggravated by walking. She denies nausea, vomiting, diarrhea, shortness of breath and chest pain. In the ED she was tachypneic and labs were remarkable for leukocytosis WBC 17.4 Left shift neutrophils 84.6 %. Lactic acid 2.4. Urine analysis remarkable for UTI. Patient was admitted for sepsis, electrolyte imbalance and and UTI. 05/30/24 the patient is seen and examined at the bedside today. She is complaining of generalized abdominal pain with a pain score 8/10. She denies nausea, vomiting, fever or chills. Labs are remarkable for WBC 17.4, potassium 5.2, BUN 46, creatinine 1.8 GFR 30 HB A1c 9.4%, procalcitonin 2.83, lipase 240, lactate is down to 1.5 From 2.4. Urine analysis is positive for occult blood moderate, leukocyte esterase 500, urine WBCs 26-50, WBC too numerous to count, urine sodium 26. CT abdomen and pelvis without contrast showed no acute findin gs and possible constipation. Urine and blood culture in process. Patient has had no bowel movement since 3-4 days and we will order laxatives. She will be monitored closely. 05/31/24 The patient is seen and examined at the bedside today.Vitals increased pulse rate 103, sinus tachycardia. She is complaining of nausea and severe, constant, diffuse abdominal pain 10/10 and bilateral hip pain, prominent on right side. She did not have a bowel movement yet. She denies fever, headache, chills, vomiting, shortness of breath, chest pain, palpitations, diarrhea, difficulty in urination. Remarkable lab results WBC increased from 17.4-19.1, low hemoglobin 10.9, low sodium 135. BUN decreased from 46 to 27 and creatinine 1.8 to 1.2. Abdominal x-ray resulted in mild gaseous distention of the colon. Bilateral hip x-ray resulted in no acute displaced fracture or dislocation. Blood Cultures resulted in Gram-positive rods. Urine Culture resulted in Gram- negative rods. 06/01/24 Patient seen and examined at the bedside today. Today her vital signs are blood pressure 150/75, pulse rate 107, respiratory rate 20, SpO2 99% on room air,T-max 98.2. She is complaining of nausea and severe, constant, diffuse abdominal pain 10/10. WBC trending upwards from 19.1 to 23.6, hemoglobin dropping from 10.9 to 9.2. Bicarb was given, increased from [address] scan wi oral contrast showed no evidence of any acute intra-abdominal or pelvic process and a small fat-containing nonobstructing left periumbilical hernia. Per patient, she had h/o multiple hernia surgeries and cholecystectomy in the past. Will order KUB x-ray. 06/02/24 Patient was seen at bedside today. Rapid response was initiated this morning since patient was having heart rate in 140s and was in moderate distress, AFib with RVR. She was treated with [id number] mg b.i.d. Lopressor 5 mg and Ativan was given. Labs were ordered and revealed metabolic acidosis with the lactic acid of 4.92 initially it was 1.7, whole blood ketones of 2.7 and ammonia of 43. Preliminary blood culture showed Klebsiella in the blood and urine and Gram-po sitive change in blood cultures currently on ceftriaxone and vancomycin. ABG showed pH 7.3, pCO2 18, bicarb 8.7, base excess -15, lactic acid 4.92, O2 saturation 96.3, glucose was 175. She was transferred to [facility] and was given sodium bicarbonate. Possibly euglycemic diabetic ketoacidosis, was started on insulin drip. She is still sinus tachycardiac and was started on amiodarone d rip. Patient's prognosis is guarded. REVIEW OF SYSTEMS CONSTITUTIONAL: Denies fevers, chills, or night sweats. No unintentional weight loss reported. Generalized weakness, bilateral hip pain NEUROLOGICAL: Denies headache, amaurosis fugax, motor weakness, sensory deficit, vertigo/spinning sensation, gait abnormalities, or tremors. ENT: No hearing loss, otalgia, otorrhea, rhinitis, rhinorrhea, hoarseness, or sore throat. CARDIOVASCULAR: Denies any exertional angina, dyspnea on exertion, orthopnea, paroxysmal nocturnal dyspnea, palpitations, life-threatening arrhythmias, claudication. PULMONARY: shortness of breath, denies cough, phlegm/sputum, hemoptysis, pleuritic chest pain. SLEEP: Denies morning headaches, daytime somnolence or napping. Denies difficulty falling asleep, staying asleep, waking from sleep. Denies knowledge of snoring. GASTROINTESTINAL: Positive for constant severe and diffuse abdominal pain and constipation. Denies any type of dysphagia to either liquids or solids. Denies nausea, vomiting, pyrosis, early satiety, diarrhea, or changes in stool consistency or caliber. Denies coffee-ground emesis, hematemesis, hematochezia, or melanotic stools. GENITOURINARY: Denies frequency, urgency, nocturia, hematuria or incontinence (Storage/Irritative symptoms.) Low urinary stream, straining to void, urinary intermittency or hesitancy, splitting of the voiding stream, terminal dribbling. ENDOCRINOLOGIC: Denies polyuria, polydipsia, polyphagia or heat/cold intoler ances. HEMATOLOGIC: Denies thrombophilia/previous clots, or coagulopathy/bleeding disorders. ONCOLOGIC: Denies personal history of malignancy. DERMATOLOGIC: Denies rashes or pruritus. PSYCHIATRIC: Denies any suicidal or homicidal ideation. Denies hallucinations. PHYSICAL EXAM GENERAL APPEARANCE: The patient is awake, alert, and oriented, in no acute cardiopulmonary distress. NEUROLOGICAL: Cranial nerves II-XII grossly intact. Motor is 5/5 in bilateral upper and lower extremities proximal to distal. No sensory deficits. HEENT: Face is symmetric. Pupils are equal and reactive. Extraocular movements are intact. NECK: Supple. No JVD. No thyromegaly. No submental, submandibular, pre- /postauricular, occipital or supraclavicular lymphadenopathy. CHEST: Normal chest expansion. LUNGS: Absence of any rales, rhonchi or any wheezing. CARDIOVASCULAR: Regular. S1 and S2 normal. No appreciable rubs, murmurs or gallops. ABDOMEN: Positive for active bowel sounds, distended. There is no rebound, voluntary guarding, or rigidity. : Deferred. No Burt. EXTREMITIES: Non-edematous and not cyanotic. No clubbing. Good capillary refill. SKIN: No skin breakdown. Vital Signs (last 8hr) Date Time Temp Pulse Resp B/P (MAP) Pulse Ox O2 Delivery O2 Flow Rate FiO2 12/24 10:15 152/53 06/02/24 10:00 133 24 133/66 98 Venti Mask 15.0 40 06/02/24 07:20 97.9 84 20 99/59 99 Nasal Cannula 2.0 24 06/02/24 06:49 156 124/72 LABS: Laboratory: Test 06/02/24 11:14 06/02/24 09:08 06/02/24 09:07 06/02/24 08:55 Range/Units Sodium Level 139 136-145 mmol/L Potassium Level 4.5 3.5-5.1 mmol/L Chloride Level 104 101-111 mmol/L Carbon Dioxide Level 17 L 21-32 mmol/L Blood Urea Nitrogen 21 H 7-18 mg/dL Creatinine 1.5 H 0.5-1.0 mg/dL Glomerular Filtration Rate Calc 37 >90 mL/min Random Glucose 144 H 70-105 mg/dL Total Calcium 7.7 L 8.5-10.1 mg/dL White Blood Count 23.9 H 4.8-10.8 K/uL Red Blood Count 3.17 L 4.00-5.50 MIL/uL Hemoglobin 9.3 L 12.0-16.0 g/dL Hematocrit 28.9 L 36-48 % Mean Corpuscular Volume 91.2 79-99 fL Mean Corpuscular Hemoglobin 29.3 27.0-33.0 pg Mean Corpuscular Hemoglobin Concent 32.2 32.0-36.0 g/dL Red Cell Distribution Width 15.9 H 11.0-15.5 % Platelet Count 268 130-400 K/uL Mean Platelet Volume 12.2 H 7.5-10.5 fL Nucleated Red Blood Cells 0.4 H 0.0-0.19 % D-Dimer Quantitative (PE/DVT) 6583 *H 0-500 ng/mL Whole Blood Ketones Quantitative 2.7 H 0.0-0.6 mmol/L Lactic Acid Level 5.0 H 0.8-2.5 mmol/L Ammonia 43 H 11-32 umol/L Blood Gas Specimen Type Arterial Arterial Blood pH 7.302 L 7.350-7.450 Arterial Blood Partial Pressure CO2 18 *L 32-45 mmHg Arterial Blood Partial Pressure O2 95.7 83.0-108.0 mmHg Arterial Blood HCO3 8.7 L 21.0-28.0 mmol/L Arterial Blood Oxygen Saturation 96.3 94.0-98.0 % Arterial Blood Base Excess -15.7 L -2.0-3.0 mmol/L Hemoglobin (Blood Gas) 9.9 L 12.0-16.0 g/dL Sodium (Blood Gas) 130 L 136-145 MMOL/L Bedside Potassium (Blood Gas) 5.3 H 3.4-4.5 MMOL/L Bedside Chloride (Blood Gas) 106 98-107 MMOL/L Bedside Glucose (Blood Gas) 175 H 65-95 MG/DL Bedside Ionized Calcium (Blood Gas) 1.09 L 1.15-1.33 MMOL/L Bedside Lactic Acid (Blood Gas) 4.92 *H 0.36-0.75 MMOL/L Blood Gas Temperature 37.0 35.5-37.0 CELSIUS Blood Gas Flow-by 2.00 0.00-15.00 L/min Blood Gas Vent Mode NC ROOM AIR FiO2 28.0 % Blood Gas Specimen Comment LR,FREIST-CURATOR OF EDUCATION Whole Blood Glucose 173 H 70-110 MG/DL Test 06/02/24 04:32 06/01/24 20:20 06/01/24 10:40 Range/Units Immature Granulocyte % (Auto) 3.1 H 0-1 % Neutrophils (%) (Auto) 79.8 H 40.0-77.0 % Lymphocytes (%) (Auto) 8.2 L 21.0-51.0 % Monocytes (%) (Auto) 8.3 3.0-13.0 % Eosinophils (%) (Auto) 0.2 0.0-8.0 % Basophils (%) (Auto) 0.4 0.0-5.0 % Neutrophils # (Auto) 20.2 H 1.8-7.7 K/uL Lymphocytes # (Auto) 2.1 1.0-4.8 K/uL Monocytes # (Auto) 2.1 H 0.1-1.0 K/uL Eosinophils # (Auto) 0.04 0.00-0.70 K/uL Basophils # (Auto) 0.10 0.00-0.20 K/uL Absolute Immature Granulocyte (auto 0.78 0-1 K/uL Total Bilirubin 0.4 0.2-1.0 mg/dL Aspartate Amino Transf (AST/SGOT) 34 10-37 U/L Alanine Aminotransferase (ALT/SGPT) 30 12-78 U/L Alkaline Phosphatase 357 H 50-136 U/L Troponin I High Sensitivity 142 *H 4-50 ng/L Total Protein 6.8 6.0-8.3 g/dL Albumin 1.3 L 3.5-5.0 g/dL Stool Occult Blood POSITIVE H NEGATIVE Total Creatine Kinase 44 # 21-232 U/L Thyroid Stimulating Hormone (TSH) 1.02 0.36-3.74 uIU/mL Current Medications Medications (Trade) Dose Ordered Sig/Durga Route PRN Reason Start Time Stop Time Status Last Admin Dose Admin Acetaminophen (TYLenol 500MG TAB) 500 mg Q4H PRN PO TEMPERATURE GREATER THAN 101.5 05/31/24 11:00 06/30/24 10:59 06/01/24 08:56 500 MG Albuterol Sulfate (Proventil 0.083% 2.5mg/3ml) 2.5 mg Q6H PRN IH [facility] 05/30/24 14:00 06/29/24 12:59 Albuterol Sulfate (Proventil 0.083% 2.5mg/3ml) 2.5 mg Q6HPRN IH 05/30/24 13:00 05/30/24 13:55 DC Albuterol Sulfate (Proventil 0.083% 2.5mg/3ml) 10 mg ONCE IH 05/30/24 04:30 05/30/24 12:45 DC 05/30/24 05:18 10 MG Amiodarone HCl 150 mg/Dextrose 100 ml @ 0 mls/hr PROTOCOL IV 06/02/24 11:00 07/02/24 10:59 Amiodarone HCl 360 mg/Dextrose 200 ml @ 0 mls/hr PROTOCOL IV 06/02/24 11:00 07/02/24 10:59 Amiodarone HCl 540 mg/Dextrose 300 ml @ 0 mls/hr PROTOCOL IV 06/02/24 11:00 07/02/24 10:59 Amlodipine Besylate (NorvASC 5MG TAB) 5 mg DAILY PO 05/31/24 09:00 06/02/24 12:19 DC 06/01/24 08:45 5 MG Atorvastatin Calcium (LIPItor 40MG) 40 mg DAILY PO 05/31/24 09:00 06/30/24 08:59 06/01/24 08:45 40 MG Brimonidine Tartrate (Alphagan P) 0.2ML OU BID BID OU 05/30/24 21:00 06/29/24 20:59 06/01/24 20:26 1 ML Ceftriaxone Sodium (ROCEphine 1G INJ) 1 gm Q12H IVPB 05/31/24 15:00 06/02/24 06:13 DC 06/02/24 02:11 1 GM Ceftriaxone Sodium (Rocephin 2gm Inj) 2 gm Q24H IVPB 06/02/24 06:30 06/02/24 06:18 DC Ceftriaxone Sodium (Rocephin 2gm Inj) 2 gm Q24H IVPB 06/03/24 02:30 06/13/24 02:29 Dexmedetomidine/ Sodium Chloride (PRECEdex 400MCG/ 100ML-NS) 400 mcg PROTOCOL STAT IV 06/02/24 12:15 06/02/24 12:18 DC 06/02/24 12:27 400 MCG Dextrose/Sodium Chloride 1,000 ml @ 0 mls/hr AD IV 06/02/24 11:00 07/02/24 10:59 Gabapentin (NEURontin 100 mg CAP) 100 mg TID PO 05/30/24 14:00 06/29/24 13:59 06/01/24 20:25 100 MG Glycerin (Glycerin Adult Supp) 1 supp TID RC 05/31/24 21:00 06/02/24 10:00 DC 06/01/24 08:56 1 SUPP Heparin Sodium (Porcine) (HEParin 5,000 UNIT VIAL) 5,000 unit BID SQ 05/30/24 09:00 06/29/24 08:59 06/01/24 20:32 5,000 UNIT Hydralazine HCl (APRESOLine 20MG INJ) 10 mg Q6H PRN IV For:SBP above 160;DBP above 90 05/30/24 05:30 06/29/24 05:29 Hydromorphone HCl (DiLAUDid 1MG INJ) 1 mg Q2H PRN IVP SEVERE PAIN (7-10) 06/01/24 14:00 06/06/24 13:59 06/02/24 03:03 1 MG Insulin Human Regular (humuLIN R 100 UNIT/ML 3ML) INSULIN SLIDING SCAL... ACHS SQ 05/30/24 07:30 06/29/24 07:29 06/02/24 06:13 2 UNIT Insulin Human Regular 100 unit/ Sodium Chloride 101 ml @ 0 mls/hr PROTOCOL IV 06/02/24 11:00 07/02/24 10:59 Ketorolac Tromethamine (toRADol) 15 mg Q6H IV 06/01/24 14:00 06/06/24 13:59 06/02/24 02:11 15 MG Ketorolac Tromethamine (toRADol) 15 mg Q6H PRN IV MODERATE PAIN (4-6) 06/01/24 11:30 06/01/24 14:03 DC 06/01/24 11:34 15 MG Lactated Ringer's 1,000 ml @ 0 mls/hr Q0M IV 06/02/24 09:30 06/02/24 10:29 DC Lactated Ringer's 1,000 ml @ 0 mls/hr Q0M IV 06/02/24 10:30 07/02/24 10:29 Lactated Ringer's 1,000 ml @ 60 mls/hr [id number] IV 05/30/24 05:30 05/31/24 17:15 DC 05/31/24 00:11 60 MLS/HR Latanoprost (Xalatan) 1 DROP OU HS HS OU 05/30/24 21:00 06/29/24 20:59 06/01/24 20:26 1 DROP Lorazepam (AtiVAN) 0.5 mg Q6H PRN IVP ANXIETY/AGITATION 06/02/24 07:00 06/09/24 06:59 Losartan Potassium (CozAAR 100MG TAB) 100 mg DAILY PO 05/31/24 09:00 05/30/24 13:53 DC Magnesium Sulfate 50 ml @ 0 mls/hr PROTOCOL IV 06/02/24 11:00 07/02/24 10:59 Magnesium Sulfate 50 ml @ 0 mls/hr PROTOCOL PRN IV hypomagnesemia 05/30/24 05:30 06/02/24 10:58 DC Metoclopramide HCl (regLAN 10MG IV) 10 mg TIDAC IVP 05/31/24 21:00 06/30/24 20:59 06/01/24 17:29 10 MG Metoprolol Tartrate (loprESSOR) 25 mg BID PO 06/02/24 09:00 07/02/24 08:59 Morphine Sulfate (morPHINE 2MG SYG) 2 mg ONCE STAT IVP 05/30/24 02:21 05/30/24 02:23 DC 05/30/24 02:30 2 MG Morphine Sulfate (morPHINE 2MG SYG) 2 mg Q4H PRN IVP SEVERE PAIN (7-10) 05/30/24 05:30 06/01/24 14:02 DC 05/30/24 16:06 2 MG Norepinephrine 250 ml @ 0 mls/hr PROTOCOL IV 06/02/24 10:30 07/02/24 10:29 Ondansetron HCl (zoFRAN 4MG INJ) 4 mg Q6H PRN IV NAUSEA/VOMITING 05/30/24 05:30 06/29/24 05:29 Pantoprazole Sodium (PROTonix 40MG INJ) 40 mg DAILY IVP 06/02/24 09:00 07/02/24 08:59 Pantoprazole Sodium (PROTonix 40MG TAB) 40 mg DAILY PO 05/30/24 09:00 06/01/24 18:02 DC 06/01/24 08:45 40 MG Piperacillin Sod/ Tazobactam Sod (Zosyn 3.375gm+NS 50ml) 3.375 gm ONCE STAT IVPB 05/30/24 02:43 05/30/24 02:47 DC 05/30/24 03:03 3.375 GM Piperacillin Sod/ Tazobactam Sod (Zosyn 3.375gm+NS 50ml) 3.375 gm Q12H IV 05/30/24 14:30 05/31/24 15:02 DC 05/31/24 14:24 3.375 GM Polyethylene Glycol (MIRalax 3350 17 GM POWD.PACK) 17 gm DAILY PO 05/31/24 09:00 06/30/24 08:59 06/01/24 08:45 17 GM Potassium Chloride 20 meq/ Sodium Chloride 1,010 ml @ 0 mls/hr PROTOCOL IV 06/02/24 11:00 07/02/24 10:59 Potassium Chloride/Dextrose/ Sod Cl 1,000 ml @ 0 mls/hr AD IV 06/02/24 11:00 07/02/24 10:59 Potassium Chloride 100 ml @ 100 mls/hr AD PRN IV POTASSIUM PROTOCOL 05/30/24 05:30 06/29/24 05:29 Potassium Chloride (K-Dur 10meq Sr Tab) 10 meq AD PRN PO POTASSIUM PROTOCOL 05/30/24 06:00 06/29/24 05:59 Potassium Chloride (KCl 10% Elixir 20meq/15ml) 10 meq AD PRN PO POTASSIUM PROTOCOL 05/30/24 05:30 06/29/24 05:29 Simethicone (Mylicon) 120 mg Q6H PRN PO GI GAS 05/31/24 21:00 06/30/24 20:59 Sodium Chloride 1,000 ml @ 100 mls/hr Q10H IV 05/31/24 17:30 06/02/24 10:59 DC 06/01/24 20:36 100 MLS/HR Sodium Chloride 1,000 ml @ 200 mls/hr PROTOCOL IV 06/02/24 11:00 07/02/24 10:59 Vancomycin HCl 250 ml @ 150 mls/hr Q24H IV 05/31/24 16:00 06/10/24 15:59 06/01/24 17:29 150 MLS/HR Vancomycin HCl (Vancomycin Protocol) 1 each AD IV 05/31/24 15:30 06/14/24 15:29 Vancomycin HCl (Vancomycin 1g/ 250ml Kit) 1 gm ONCE STAT IV 05/30/24 02:43 05/30/24 02:47 DC 05/30/24 03:50 1 GM DIAGNOSTICS / RADIOLOGY: [ ] REASON: severe abdominal pain,c/f obstruction ORDERING PHYSICIAN: ALAN AVILES MD PROCEDURE: ABD 1VW - ABD 1VW ABD 1VW HISTORY: Abdominal pain COMPARISON: 05/30/2024 FINDINGS: A frontal projection of the abdomen was obtained. A nonspecific bowel gas pattern is seen. Fecal material is seen in the colon. Postcholecystectomy changes are seen. Mild degenerative changes are seen. IMPRESSION: 1. A nonspecific bowel gas pattern is seen. REASON: sob ORDERING PHYSICIAN: ESCOBAR SILVA PROCEDURE: CXR1VW - CHEST 1VW CHEST 1VW HISTORY: Shortness of breath COMPARISON: 11/08/2020 FINDINGS: A frontal projection of the chest was obtained. Prominent interstitial markings are seen with possible superimposed infiltrates. The heart is borderline enlarged. Degenerative changes are seen. No evidence of aortic calcification is seen. IMPRESSION: 1. No acute pulmonary infiltrate is seen. Prominent interstitial markings are seen. ASSESSMENT: Euglycemic DKA AFib with RVR Metabolic acidosis secondary to DKA and sepsis Hyperammonemia Sepsis secondary to UTI POA Gram-positive septicemia, POA Urinary Tract infection POA, Gram-negative rods Acute kidney injury POA , improving Electrolyte imbalance (hyponatremia, hyperkalemia)POA Leukocytosis POA Elevated Lipase POA Diabetes mellitus type 2 with the A1c 9.4% chronic anemia, POA Obesity POA Hypertension Hyperlipidemia History of breast CA currently in remission PLAN: Continue to monitor patient on ICU Euglycemic Diabetic Ketoacidosis WB ketones 2.7, pH 7.3, Glucose 175 Start on insulin drip, aggressive resuscitation AFib with RVR Started on metoprolol 25 mg BID start on amio drip Sepsis secondary to Urinary Tract infection POA Urine analysis is positive for occult blood, leukocyte esterase 500, urine RBCs 26-50, WBCs too numerous to count and urine sodium 26. Urine culture resulted in Gram-negative rods, sensitivities pending Procalcitonin 2.83. We will stop Zosyn and start Rocephin1 g IV b.id Gram positive septicemia, POA We will start the patient on vancomycin protocol We will consult ID in view of polymicrobial sepsis We will consult BIS in view of polymicrobial sepsis Acute kidney injury POA Electrolyte imbalance (hyponatremia, hyperkalemia)POA Avoid Nephrotoxic drugs. Continue LR @60 ml/hrs. We will monitor electrolytes closely and replace them as per protocol Elevated Lipase POA Lipase level 240 and continue IV hydration. Diabetes mellitus type 2 with the A1c 9.4% A1c 9.4% Monitor blood glucose a.c. and HS. Follow insulin sliding scale. Hypoglycemia protocol. Hypertension Continue Norvasc 5 mg. Give hydralazine IV as needed if SBP above 170 mm hg. Hyperlipidemia Continue atorvastatin 40 mg Continue GI and DVT prophylaxis. PRN medications for pain, fever, nausea and vomiting are added. We will consult Physical therapy in view of generalized weakness and inability to walk as per her baseline ATTESTATION BY PHYSICIAN I have seen and examined the patient. I reviewed the documentation, medical decision making, and treatment plan as noted by the resident provider above. I agree with the findings and plan of care. Beverly Delgado MD, NIHITHA MD Jun 02, 2024 12:58
[2024-06-02] MEDS ORDERED: phenylEPHRINE HCL 10 MG in 0.9% NACL 250ML 250 ML IV PRN (13:00)
[2024-06-02] MEDS ORDERED: dilTIAZem 125 MG/25 ML INJ 125 MG in 0.9%NACL 100ML 100 ML IV SCH (13:00)
[2024-06-02] MEDS: dilTIAZem 25MG INJ IVP ONE (13:00)
--- NOTE | 2024-06-02 13:00 | NUR ---
RESP DISTRESS PT CONTINUES ON PRECEDEX DRIP AND BIPAP, CONTINUES RESTLESS AND TACHYPNEIC WITH AMS. BLISTER PACKING MACHINE TENDER FOR BIS NOTIFIED, PT INTUBATED BY BLISTER PACKING MACHINE TENDER, 7.5 ETT AND PLACED ON PRESCRIBED VENT SETTINGS, 1323 PT HEART RATE 58 IN PEA, CODE BLUE CALLED. CODE LASTED 3 MINUTES AND ROSC ATTAINED, PT ON AFIB 130S. PLEASE REFER TO CODE BLUE SHEET IN CHART. CVC AND ART LINE PLACED BY BLISTER PACKING MACHINE TENDER. 1400 PT STARTED ON NEOSYNEPHRINE, VASOPRESSIN AND CONTINUES ON LEVOPHED, AMIODARONE DRIP INITIATED INSTEAD OF CARDIZEM DRIP PER ORDERS FROM BLISTER PACKING MACHINE TENDER WITH BIS. DAUGHTERS AT BEDSIDE AND UPDATED.
[2024-06-02] MEDS ORDERED: MIDAZOLAM HCL 50 MG in 0.9%NACL 50ML 50 ML IV SCH (13:30)
[2024-06-02] MEDS: FENTanyl 1000MCG+NS 100ML 100 ML IV SCH (13:46)
[2024-06-02] MEDS: MIDAZOLAM 50MG-0.9% NS 50ML 50 ML IV SCH (13:52)
[2024-06-02] MEDS: AMIOdarone 150MG VIAL 150 MG in DEXTROSE 5%-WATER 100 ML IV SCH (13:55)
[2024-06-02] MEDS: AMIOdarone 900MG VIAL 360 MG in DEXTROSE 5%-WATER 200 ML IV SCH (13:56)
[2024-06-02] MEDS ORDERED: MEROPENEM 1 GM in 0.9%NACL 100ML 100 ML IVPB SCH (14:00)
[2024-06-02 14:30] LABS: ABG HCO3 10.7 mmol/L (21.0-28.0); ABG OXYGEN SATURATION 98.5 % (94.0-98.0); ABG PCO2 25 mmHg (32-45); ABG PH 7.249 (7.350-7.450); CARBON MONOXIDE 0.3 % (0.5-1.5); HHb 1.5; PO2, ARTERIAL BG 364.1 mmHg (83.0-108.0); VENT MODE, BG AC (ROOM AIR)
[2024-06-02] MEDS ORDERED: HEParin 5,000 UNIT VIAL IV PRN (15:00)
--- NOTE | 2024-06-02 15:10 | NUR ---
SPEECH TRIGGER COMPLETED (INTUBATION). Pt IS A 73 Y.O. FEMALE ADMITTED SECONDARY TO SEPSIS, UTI, LEUKOCYTOSIS AND HYPERLACTATEMIA. Pt HAS A PAST MEDICAL HISTORY SIGNIFICANT FOR DM TYPE 2, HYPERTENSION, OSTEOPOROSIS, ARTHRITIS AND BREAST CANCER. Pt CURRENTLY INTUBATED AND NPO. PLEASE REQUEST [employer]ECH [employer] FOR BEDSIDE SWALLOW EVALUATION 24 HOURS POST EXTUBATION IF ANY S/S OF ASPIRATION ARISE WITH ORAL INTAKE. SALES PLANNING COORDINATOR COORDINATED WITH NURSE MAZARIEGOS. ALL QUESTIONS ANSWERED AT THIS TIME. Addendum: 06/02/[address] [facility] Amended: Links added.
--- NOTE | 2024-06-02 15:35 | HMCIMG ---
CHEST 1VW HISTORY: Post intubation COMPARISON: None FINDINGS: A frontal projection of the chest was obtained. No acute pulmonary infiltrates is seen. The heart is borderline enlarged. All the lines and tubes are again seen in place. Prominent interstitial markings are seen. Endotracheal tube is seen with distal tip at 2.2 cm above vandana. IMPRESSION: 1. No acute pulmonary infiltrate is seen. Prominent interstitial markings.
[2024-06-02 16:15] LABS: INR 1.68 (0.85-1.15); PROTHROMBIN TIME 17.5 SEC (9.6-11.6)
[2024-06-02] MEDS: MEROPENEM 1 GM VIAL IVPB SCH (16:17)
[2024-06-02 16:23] LABS: CREATININE 1.7 mg/dL (0.5-1.0); POTASSIUM 5.1 mmol/L (3.5-5.1)
[2024-06-02] MEDS: 0.9%NACL 1000ML 1,503 ML IV ONE (16:46)
[2024-06-02] MEDS: NOREPINEPHRINE 16MG/NS 250ML PREMIX IV SCH (16:47)
[2024-06-02] MEDS: HEParin 25,000 UNITS/250ML D5W 250 ML IV SCH (16:49)
--- NOTE | 2024-06-02 17:25 | HMCIMG ---
US VENOUS DOPPLER BILATERAL HISTORY: Mottled COMPARISON: None TECHNIQUE: Bilateral lower extremity venous Doppler ultrasound study was performed. FINDINGS: The common femoral, femoral, popliteal, and posterior tibial veins are visualized. Normal flow compressibilities are demonstrated. The greater saphenous veins are also seen and grossly patent. IMPRESSION: 1. No evidence of deep venous thrombosis is seen.
--- NOTE | 2024-06-02 19:21 | PN ---
[facility] PROGRESS NOTE Date Patient Seen: Jun 02, 2024 Time of Visit: 15:16 Supervising Physician: Terence Shaikh Primary Care Physician: Admitting team: [facility] hospitalist team Outpatient Specialists: Inpatient Consults: [facility], critical Care team Infectious disease physician/team PROBLEM LIST: Acute hypoxic respiratory failure- not POA Intubated on 06/02 for airway protection due to worsening respiratory failure Euglycemic DKA- patient is on Jardiance as OP Acute toxic metabolic encephalopathy Acute high anion gap metabolic acidosis secondary to DKA Acute renal failure due to ATN from sepsis Acute sepsis without septic shock, blood cultures on 06/01/2024 showed no growth after 48 hours. Acute complicated cystitis, POA, Gram-negative rods Intractable abdominal pain, POA Acute on chronic constipation, with impaction noted on CT, POA Acute hip pain: Bilateral hips joint space narrowing and degenerative changes 9 mm right lung nodule, incidental finding Small fat-containing nonobstructing left periumbilical hernia. Gram-positive septicemia, POA Electrolyte derangement (hyponatremia, hyperkalemia), POA Leukocytosis POA Elevated Lipase POA Uncontrolled diabetes mellitus type 2 with the A1c 9.4% Chronic anemia, POA Obesity, BMI 32.1 POA Hypertension Hyperlipidemia History of breast CA currently in remission INTERVAL HISTORY: [Blood pressure is 150/75 with a heart rate of 107, afebrile on room air. Patient has been given suppository and enemas for constipation. Her WBCs morning increased to 23, small left shift with neutrophils at 81%. BMP shows improved serum bicarbonate from 15 to 21. Alkaline phosphatase is elevated to 320, likely in the setting of acute infection. Her lactic acid improved from 2.4-1.7. Pro count slightly elevated at 2.83. Patient was given IV fluids bicarb yesterday with improvement. ID is consulted pending recommendation. Patient continues on Rocephin vancomycin. Her urine culture is positive for Klebsiella pneumoniae with resistance to nitrofurantoin, but is sensitive to cephalosporins. Blood culture was one of two Gram-positive rods with is negative / after 48 hours. She complains of abdominal pain to RLQ. This is the same area she is noted to have impaction on CT, consistent with fecal impaction constipation. No signs of bowel obstruction per imaging.] 06/02 there was a rapid response initiation this morning for AFib RVR and periods of decreased mental status. Patient is found to be lethargic following simple commands with clammy and mottled skin throughout. We sent some lab this morning and patient had metabolic acidosis with high anion gap. Ketone was elevated at 2.7. Glucose 175. Patient has euglycemic diabetic ketoacidosis. We will need to start patient on insulin drip. So, she was transferred to ICU. Her ABG with pH 7.302, pCO2 18, PO2 two is 95 bicarb is 8.7 O2 sat 96, base excess -15. We had given her bicarb earlier given acidosis but knowing DKA, no need for bicarb. We gave her 2 L of IV fluid and patient blood pressure remains okay but went to AFib RVR up to 150. Start patient on amiodarone drip. Place her on bipap for now. Criticall ill. Subsequent visit 06/02 patient is in distress, was started on anxiolytic with Precedex drip but has not been successful. Given altered mental status and restlessness, we had decided to intubate her Also, patient remains vasoplegia, requiring high dose of vasopressor, we decided to place central line after family agrees to this. She is running AFib with RVR. We we will be starting him on amiodarone drip and switch Levophed to phenylephrine. Continue to follow lab. Continue insulin drip for euglycemic DKA. Labs to follow protocol. IVF boluses I spoke with patient's family members about current status. REVIEW OF SYSTEMS: 12 point ROS reviewed with patient. Pertinent positives mentioned above. Otherwise negative. PHYSICAL EXAM: GENERAL: Sedated, intubated HEENT: EOMI, Sclera non icteric, moist mucosa NECK: Supple, no JVD, trachea midline LUNGS: Clear breath sounds bilaterally. No wheezes HEART: Regular rate and rhythm. Normal S1 and S2, without murmurs ABD: Obese. Abdomen tender, round. Bowel sounds diminished. EXT: No clubbing cyanosis or edema NEURO: Intubated and sedated- unable to assess Vital Signs (last 8hr) Date Time Temp Pulse Resp B/P (MAP) Pulse Ox O2 Delivery O2 Flow Rate FiO2 06/02/24 16:47 107/61 06/02/24 15:42 95 60 06/02/24 14:40 60 06/02/24 13:19 134 100 12/2/24 12:31 146 44 40 LABS: Hematology Labs: Test 06/02/24 09:08 06/02/24 04:32 Range/Units White Blood Count 23.9 H 4.8-10.8 K/uL Red Blood Count 3.17 L 4.00-5.50 MIL/uL Hemoglobin 9.3 L 12.0-16.0 g/dL Hematocrit 28.9 L 36-48 % Mean Corpuscular Volume 91.2 79-99 fL Mean Corpuscular Hemoglobin 29.3 27.0-33.0 pg Mean Corpuscular Hemoglobin Concent 32.2 32.0-36.0 g/dL Red Cell Distribution Width 15.9 H 11.0-15.5 % Platelet Count 268 130-400 K/uL Mean Platelet Volume 12.2 H 7.5-10.5 fL Nucleated Red Blood Cells 0.4 H 0.0-0.19 % Immature Granulocyte % (Auto) 3.1 H 0-1 % Neutrophils (%) (Auto) 79.8 H 40.0-77.0 % Lymphocytes (%) (Auto) 8.2 L 21.0-51.0 % Monocytes (%) (Auto) 8.3 3.0-13.0 % Eosinophils (%) (Auto) 0.2 0.0-8.0 % Basophils (%) (Auto) 0.4 0.0-5.0 % Neutrophils # (Auto) 20.2 H 1.8-7.7 K/uL Lymphocytes # (Auto) 2.1 1.0-4.8 K/uL Monocytes # (Auto) 2.1 H 0.1-1.0 K/uL Eosinophils # (Auto) 0.04 0.00-0.70 K/uL Basophils # (Auto) 0.10 0.00-0.20 K/uL Absolute Immature Granulocyte (auto 0.78 0-1 K/uL Chemistry Labs: Test 06/02/24 18:34 06/02/24 16:00 06/02/24 09:08 06/02/24 04:32 Range/Units Whole Blood Glucose 89 70-110 MG/DL Sodium Level 141 136-145 mmol/L Potassium Level 5.1 3.5-5.1 mmol/L Chloride Level 107 101-111 mmol/L Carbon Dioxide Level 11 L 21-32 mmol/L Blood Urea Nitrogen 24 H 7-18 mg/dL Creatinine 1.7 H 0.5-1.0 mg/dL Glomerular Filtration Rate Calc 32 >90 mL/min Random Glucose 93 70-105 mg/dL Lactic Acid Level 13.4 H 0.8-2.5 mmol/L Total Calcium 7.8 L 8.5-10.1 mg/dL Whole Blood Ketones Quantitative 2.7 H 0.0-0.6 mmol/L Ammonia 43 H 11-32 umol/L Total Bilirubin 0.4 0.2-1.0 mg/dL Aspartate Amino Transf (AST/SGOT) 34 10-37 U/L Alanine Aminotransferase (ALT/SGPT) 30 12-78 U/L Alkaline Phosphatase 357 H 50-136 U/L Troponin I High Sensitivity 142 *H 4-50 ng/L Total Protein 6.8 6.0-8.3 g/dL Albumin 1.3 L 3.5-5.0 g/dL Test 06/01/24 10:40 Range/Units Total Creatine Kinase 44 # 21-232 U/L Thyroid Stimulating Hormone (TSH) 1.02 0.36-3.74 uIU/mL Coagulation Labs: Test 06/02/24 16:00 06/02/24 09:08 Range/Units Prothrombin Time 17.5 H 9.6-11.6 SEC Prothromb Time International Ratio 1.68 H 0.85-1.15 Activated Partial Thromboplast Time 37.4 H 26.3-35.5 SEC D-Dimer Quantitative (PE/DVT) 6583 *H 0-500 ng/mL DIAGNOSTICS / RADIOLOGY RESULTS: [ ] PLAN NEURO: Minimize central acting medications as possible. Fall Precautions. Well lighted room through the day and minimize interruptions through the night to prevent acute delirium. PULMONARY: Supplemental 02 as needed Titrate Fio2 to keep Spo2 > or = 90% DuoNebs and CPT as needed IS hourly while awake for pulmonary hygiene Out of bed to chair as tolerated VAP Bundle Vent/BIPAP Settings: BIPAP 10/5/100% CARDIOVASCULAR: Follow hemodynamics. Titrate vasopressor to keep MAP >65 or systolic blood pressure >95mmHg DRIPS: LR Insulin LINES: PIV RIght IJ central line GI & NUTRITION: Continue nutritional support Aspirations precautions Prokinetic agents and laxatives as needed KIDNEYS & ELECTROLYTES: Strict monitoring of intake and output Daily weights Avoid nephrotoxic agents Monitor electrolytes and replace as needed Goal urine output of 30mL/hr or 0.5mL/kg/hr ENDOCRINE: Maintain blood glucose between 100-180 at all times. Insulin sliding scale for blood glucose management Euglycemic DKA- continue with protocol INFECTIOUS DISEASE: Trend temperature. Cruz-culture if febrile. Micro: Urine Antibiotics: Meropenem HEMATOLOGY & COAGULATION: Monitor H&H. Keep Hgb > 7 Transfuse 1 unit of PRBC for Hgb < 7 Transfuse 1 pack of platelets of platelets < 20, 000 Watch for any signs and symptoms of bleeding SKIN: Pressure ulcer prevention per facility protocol Rehab: PT/OT Prophylaxis: GI: Pepcid DVT: Heparin Code Status: Full Resuscitation Disposition: ICU Other: Total patient care time exceeds 35 minutes excluding all procedures. Case was discussed and seen with my supervising physician. The above plan was formulated and agreed upon. [facility] Jun 02, 2024 19:21
[2024-06-02] MEDS: AMIOdarone 900MG VIAL 540 MG in DEXTROSE 5%-WATER 300 ML IV SCH (19:30)
--- NOTE | 2024-06-02 20:32 | PRN ---
[facility] Procedure Note-[facility] Procedure Note DATE OF PROCEDURE: INDICATION: [Acute hypoxic respiratory failure] Procedure performed: -Endotracheal intubation. Indication for procedure: -Acute respiratory failure. Pre-procedure checklist: -Informed consent obtained. -Time out per hospital policy. Medications used: -Etomidate 20 mg IV -Succinylcholine 200 mg IV Description of procedure: Hand hygiene was performed. Patient was sedated with IV Etomidate and paralyzed with IV Succinylcholine. A [7.5] endotracheal tube was inserted through the vocal cords on the first attempt using direct laryngoscopy with [Mac blade size 3], grade 1 view. Tube secured at [21] cm at lip level. Bilateral breath sounds auscultated. Positive end-tidal CO2 capnography. Patient maintained 100% SpO2 during the entire procedure. Procedure completed without complications. Post-procedure chest x-ray showed proper placement of endotracheal tube. Procedure was performed by Alexandra Recinos NP with myself assisting under the direct supervision of Dr. Terence Porras. Time spent performing the procedure is independent of the time spent planning and coordinating the patient's care. ROSALIE ROTHMAN Jun 02, 2024 20:32
--- NOTE | 2024-06-02 20:35 | PRN ---
[facility] Procedure Note [facility] Procedure Note DATE OF PROCEDURE: INDICTAION: [Septic Shock] Procedures performed: -Central line placement, right internal jugular vein. -Intraoperative ultrasound guidance with permanent recording of images in chart. Pre-procedure checklist: -Informed consent obtained. -Time-out performed per hospital policy. Medications: -Lidocaine 1% 5 ml Description of procedure: Hand hygiene was performed. Cap, mask, sterile gown, and sterile gloves were donned. Area was prepped with 2% chlorhexidine and a large sterile drape was applied with sterile field maintained. 5 ml of Lidocaine injected into surrounding tissue. Using ultrasound probe with sterile sleeve in place, procedure site was assessed and the vein was entered with direct ultrasound guidance while maintaining strict sterile technique. Triple lumen catheter was inserted with Seldinger technique. Venous blood was aspirated freely from all 3 ports and flushed with 10 ml of 0.9% saline each. Line secured at the hub and sutured in place. Biopatch placed in the correct position and clear sterile dressing was applied. A post-procedure chest x-ray was ordered. Procedure was performed by Alexandra Recinos NP with myself assisting under the direct supervision of Dr. Terence Porras. Time spent on this procedure is independent of the time spent planning and coordinating the patient's care. ROSALIE ROTHMAN Jun 02, 2024 20:35
[2024-06-02 20:49] LABS: POTASSIUM 4.8 mmol/L (3.5-5.1)
[2024-06-02 22:49] LABS: POTASSIUM 5.4 mmol/L (3.5-5.1)
[2024-06-02] MEDS: VASOpressin 20 UNITS/ML 1ML Vi 40 UNITS in 0.9%NACL 50ML 40 ML IV SCH (23:00)
[2024-06-02] MEDS: SODIUM BICARB 8.4% 50ML SYRING 150 MEQ in DEXTROSE 5%-WATER 1,000 ML IVP SCH (23:13)
[2024-06-02] MEDS: phenylEPHRINE HCL 100 MG in 0.9% NACL 250ML 250 ML IV SCH (23:59)
[2024-06-03] VITALS (100 sets, daily range): BP systolic 49–146; BP diastolic 9–89; PULSE 71–134; RESP 23–55; TEMP 96.9–97.9; O2SAT 90–100
[2024-06-03] MEDS: AMIOdarone 900MG VIAL 150 MG in DEXTROSE 5%-WATER 100 ML IV PRN (00:10)
[2024-06-03] MEDS ORDERED: CEFTRIAXONE 2GM VIAL IVPB SCH (02:30)
[2024-06-03 03:48] LABS: BASOPHILS # (AUTO) 0.11 K/uL (0.00-0.20); BASOPHILS % (AUTO) 0.6 % (0.0-5.0); EOSINOPHILS # (AUTO) 0.01 K/uL (0.00-0.70); EOSINOPHILS % (AUTO) 0.1 % (0.0-8.0); HEMATOCRIT 23.8 % (36-48); IMMATURE GRANULOCYTE ABSOLUTE 1.23 K/uL (0-1); LYMPHOCYTES # (AUTO) 2.1 K/uL (1.0-4.8); LYMPHOCYTES % (AUTO) 10.9 % (21.0-51.0); MEAN CORPUSCULAR HEMOGLOBIN 29.5 pg (27.0-33.0); MEAN CORPUSCULAR HGB CONC 32.4 g/dL (32.0-36.0); MEAN CORPUSCULAR VOLUME 91.2 fL (79-99); MONOCYTES # (AUTO) 1.4 K/uL (0.1-1.0); MONOCYTES % (AUTO) 7.4 % (3.0-13.0); NEUTROPHILS # (AUTO) 14.3 K/uL (1.8-7.7); NEUTROPHILS % (AUTO) 74.6 % (40.0-77.0); PLATELET COUNT (AUTO) 168 K/uL (130-400); RED BLOOD CELL COUNT(AUTO) 2.61 MIL/uL (4.00-5.50); RED CELL DISTRIBUTION WIDTH 16.3 % (11.0-15.5); WHITE BLOOD COUNT (AUTO) 19.1 K/uL (4.8-10.8)
[2024-06-03] MEDS: DEXTROSE 5 %-0.45 % NACL 1,000 ML IV SCH (03:59)
[2024-06-03 04:00] LABS: CREATININE 2.2 mg/dL (0.5-1.0); POTASSIUM 4.6 mmol/L (3.5-5.1)
[2024-06-03 04:12] LABS: ABG BASE EXCESS -16.3 mmol/L (-2.0-3.0); ABG HCO3 9.8 mmol/L (21.0-28.0); ABG PCO2 24 mmHg (32-45); ABG PH 7.225 (7.350-7.450); CARBON MONOXIDE 1.2 % (0.5-1.5); DEVICE COMMENT ALINE; PO2, ARTERIAL BG 152.8 mmHg (83.0-108.0); VENT MODE, BG AC (ROOM AIR)
[2024-06-03] MEDS: SODIUM BICARB 50MEQ 50ML VIAL IV ONE ×4 (05:20→14:55)
[2024-06-03] MEDS ORDERED: CALCIUM GLUC 1GM 1 GM in 0.9%NACL 100ML 90 ML IV PRN (06:00)
[2024-06-03] MEDS ORDERED: 0.9%NACL 50ML IV SCH (06:00)
[2024-06-03] MEDS ORDERED: CALCIUM GLUC 1GM/10ML VIAL IV PRN (06:00)
[2024-06-03] MEDS: CALCIUM GLUC 1GM/10ML VIAL IVPB SCH ×2 (06:11→17:46)
[2024-06-03] MEDS: ALBUMIN HUMAN 25% 100 ML IV SCH (06:12)
[2024-06-03 07:37] LABS: ABG BASE EXCESS -16.3 mmol/L (-2.0-3.0); ABG HCO3 10.1 mmol/L (21.0-28.0); ABG OXYGEN SATURATION 97.4 % (94.0-98.0); ABG PCO2 26 mmHg (32-45); ABG PH 7.209 (7.350-7.450); CARBON MONOXIDE 1.1 % (0.5-1.5); HHb 2.6; PO2, ARTERIAL BG 137.4 mmHg (83.0-108.0); VENT MODE, BG AC-VC (ROOM AIR)
[2024-06-03] MEDS: LACTATED RINGERS 1000ML IV ONE (08:14)
--- NOTE | 2024-06-03 08:25 | EKG ---
[facility] Test Date: 2024-06-02 Test Time: 13:31:49 Pat Name: MARIELA SAGE Department: [facility] Room: 207 1 Gender: F Radiology Interventional Physician: darlene : [id number] Requested By: SCOT FISHER Order Number: [id number] Reading MD: Hernan Hernandez Measurements Intervals [place] Rate: 148 P: 0 MN: 0 QRS: -11 QRSD: 80 T: 18 QT: 295 QTc: 474 Interpretive Statements Atrial fibrillation with rapid V-rate Inferior infarct, age indeterminate Compared to ECG 06/02/2024 08:58:05 Myocardial infarct finding now present Sinus rhythm no longer present Sinus arrhythmia no longer present Early repolarization no longer present Electronically Signed On 06-03-2024 19:03:32 [employer] by Hernan Hernandez Please click the below link to view image of tracing.
[2024-06-03] MEDS ORDERED: CALCIUM GLUC 1GM/10ML VIAL IV SCH (08:30)
--- NOTE | 2024-06-03 08:41 | PN ---
[facility] PROGRESS NOTE Date Patient Seen: Jun 03, 2024 Time of Visit: 08:28 Supervising Physician: Dr Danielito MARTINEZ Primary Care Physician: Admitting team: [facility] hospitalist team Outpatient Specialists: Inpatient Consults: [facility], critical Care team Infectious disease physician/team PROBLEM LIST: Acute hypoxic respiratory failure- not POA Intubated on 06/02 for airway protection due to worsening respiratory failure Euglycemic DKA- patient is on Jardiance as OP, resolved neg ketones on 06/03 Acute toxic metabolic encephalopathy Acute high anion gap metabolic acidosis secondary to below Acute renal failure due to ATN from sepsis Acute sepsis septic shock, blood cultures on 06/01/2024 showed no growth after 48 hours. Suspected PE (too unstable for CTA) heparin gtt on hold due to GI Bleed 06/03/24 Acute complicated cystitis, POA, Gram-negative rods Intractable abdominal pain, POA Acute on chronic constipation, with impaction noted on CT, POA Acute hip pain: Bilateral hips joint space narrowing and degenerative changes 9 mm right lung nodule, incidental finding Small fat-containing nonobstructing left periumbilical hernia. Gram-positive septicemia, POA Electrolyte derangement (hyponatremia, hyperkalemia), POA Leukocytosis POA Elevated Lipase POA Uncontrolled diabetes mellitus type 2 with the A1c 9.4% Chronic anemia, POA Obesity, BMI 32.1 POA Hypertension Hyperlipidemia History of breast CA currently in remission INTERVAL HISTORY: [Blood pressure is 150/75 with a heart rate of 107, afebrile on room air. Patient has been given suppository and enemas for constipation. Her WBCs morning increased to 23, small left shift with neutrophils at 81%. BMP shows improved serum bicarbonate from 15 to 21. Alkaline phosphatase is elevated to 320, likely in the setting of acute infection. Her lactic acid improved from 2.4-1.7. Pro count slightly elevated at 2.83. Patient was given IV fluids bicarb yesterday with improvement. ID is consulted pending recommendation. Patient continues on Rocephin vancomycin. Her urine culture is positive for Klebsiella pneumoniae with resistance to nitrofurantoin, but is sensitive to cephalosporins. Blood culture was one of two Gram-positive rods with is negative 2/2 after 48 hours. She complains of abdominal pain to RLQ. This is the same area she is noted to have impaction on CT, consistent with fecal impaction constipation. No signs of bowel obstruction per imaging.] 06/02 there was a rapid response initiation this morning for AFib RVR and periods of decreased mental status. Patient is found to be lethargic following simple c ommands with clammy and mottled skin throughout. We sent some lab this morning and patient had metabolic acidosis with high anion gap. Ketone was elevated at 2.7. Glucose 175. Patient has euglycemic diabetic ketoacidosis. We will need to start patient on insulin drip. So, she was transferred to ICU. Her ABG with pH 7.302, pCO2 18, PO2 two is 95 bicarb is 8.7 O2 sat 96, base e xcess -15. We had given her bicarb earlier given acidosis but knowing DKA, no need for bicarb. We gave her 2 L of IV fluid and patient blood pressure remains okay but went to AFib RVR up to 150. Start patient on amiodarone drip. Place her on bipap for n ow. Criticall ill. Subsequent visit 06/02 patient is in distress, was started on anxiolytic with Precedex drip but has not been successful. Given altered mental status and restlessness, we had decided to intubate her Also, patient remains vasoplegia, requiring high dose of vasopressor, we decided to place central line after family agrees to this. She is running AFib with RVR. We we will be starting him on amiodarone drip and switch Levophed to phenylephrine. Continue to follow lab. Continue insulin drip for euglycemic DKA. Labs to follow protocol. IVF boluses I spoke with patient's family members about current status. 06/03/24: Patient continues critically ill, prognosis is grim requiring multiple pressors including Zach-Synephrine, vasopressin, and Levophed drip. Patient has also been started on amiodarone drip for AFib with RVR, current rhythm is AFib with RVR at 133 beats per minute, blood pressure is marginal at 101/56, O2 saturation is 95% with a FiO2 of 50% on mechanical ventilation assist-control volume control, tidal volume is 400 respiratory rate of 28 and PEEP of 6. ABG shows pH of 7.209 pCO2 of 26 PO2 137.4 and bicarb of 10.1 was given two amps of bicarb in 1 L of LR bolus. Overnight she developed bloody drainage from NG tube and H&H dropped to 7.7 from 9.3 yesterday decision was made to hold heparin drip. Platelet count is [id number] WBCs are trending down 19.1 today urine output has been 25 mL per RN. Creatinine has worsened to 2.2 GFR of 23 complex dioxide of 12 BUN of 26 with a anion gap of 23. We will order ketones for this morning. Lactic acid keeps trending up 16.53 despite fluid resuscitation and pressors ionized calcium is 0.92 we will replace. Goal of this conversation was to discuss goals of care. I discussed regarding what advanced directives in detail and what advanced care planning entails. We also discussed CODE STATUS. I informed the patient that in the case of cardiopulmonary demise, resuscitation efforts including chest compressions do not lead to ideal postresuscitative outcomes. We discussed patient's particular disease processes and how this could be potentially impacting the patient's outcome in the event of a cardiopulmonary arrest. All questions related to resuscitation, CODE STATUS, advanced directives were answered in detail. Patient family wishes to not receive resuscitated measures such as CPR. We will change CODE STATUS to DO NOT INTUBATE and DO NOT RESUSCITATE. REVIEW OF SYSTEMS: unable to Perform due to patient's intubated and sedated. PHYSICAL EXAM: GENERAL: Sedated, intubated HEENT: EOMI, Sclera non icteric, moist mucosa NECK: Supple, no JVD, trachea midline LUNGS: diminished breath sounds bilaterally. No wheezes HEART: Regular rate and rhythm. Normal S1 and S2, without murmurs ABD: Obese. Abdomen tender, round. Bowel sounds diminished. EXT: No clubbing cyanosis or edema, mottled to allextremeties. NEURO: Intubated and sedated- unable to assess Vital Signs (last 8hr) Date Time Temp Pulse Resp B/P (MAP) Pulse Ox O2 Delivery O2 Flow Rate FiO2 06/03/24 06:37 79 50 06/03/24 06:00 79 28 101/56 95 Ventilator 50 06/03/24 05:30 80 28 118/61 95 Ventilator 50 06/03/24 05:15 81 28 130/64 95 06/03/24 05:00 77 29 101/57 95 06/03/24 04:45 79 28 96/55 95 06/03/24 04:30 77 29 102/57 95 06/03/24 04:15 77 31 99/56 99 06/03/24 04:00 95 Ventilator+ 50 06/03/24 04:00 77 50 06/03/24 04:00 50 06/03/24 04:00 97.7 77 30 102/57 95 Ventilator 50 06/03/24 03:47 78 28 107/50 94 06/03/24 03:45 77 23 106/58 96 06/03/24 03:30 78 30 109/59 93 06/03/24 03:15 77 26 113/60 93 06/03/24 03:00 75 28 93/54 95 06/03/24 02:45 76 30 100/56 95 06/03/24 02:30 85 29 98/56 94 06/03/24 02:15 74 30 146/69 97 06/03/24 02:00 72 28 61/40 91 06/03/24 01:47 80 27 135/89 99 06/03/24 01:45 83 28 122/61 100 06/03/24 01:30 79 28 123/61 99 06/03/24 01:15 81 32 125/64 95 06/03/24 01:00 88 30 115/63 96 Ventilator 50 06/03/24 00:45 88 29 120/64 96 Ventilator 50 06/03/24 00:35 89 50 06/03/24 00:30 77 28 118/62 97 Ventilator 50 LABS: Hematology Labs: Test 06/03/24 03:11 Range/Units White Blood Count 19.1 H 4.8-10.8 K/uL Red Blood Count 2.61 L 4.00-5.50 MIL/uL Hemoglobin 7.7 L 12.0-16.0 g/dL Hematocrit 23.8 L 36-48 % Mean Corpuscular Volume 91.2 79-99 fL Mean Corpuscular Hemoglobin 29.5 27.0-33.0 pg Mean Corpuscular Hemoglobin Concent 32.4 32.0-36.0 g/dL Red Cell Distribution Width 16.3 H 11.0-15.5 % Platelet Count 168 # 130-400 K/uL Mean Platelet Volume 13.1 H 7.5-10.5 fL Immature Granulocyte % (Auto) 6.4 H 0-1 % Neutrophils (%) (Auto) 74.6 40.0-77.0 % Lymphocytes (%) (Auto) 10.9 L 21.0-51.0 % Monocytes (%) (Auto) 7.4 3.0-13.0 % Eosinophils (%) (Auto) 0.1 0.0-8.0 % Basophils (%) (Auto) 0.6 0.0-5.0 % Neutrophils # (Auto) 14.3 H 1.8-7.7 K/uL Lymphocytes # (Auto) 2.1 1.0-4.8 K/uL Monocytes # (Auto) 1.4 H 0.1-1.0 K/uL Eosinophils # (Auto) 0.01 0.00-0.70 K/uL Basophils # (Auto) 0.11 0.00-0.20 K/uL Absolute Immature Granulocyte (auto 1.23 H 0-1 K/uL Nucleated Red Blood Cells 2.0 H 0.0-0.19 % Chemistry Labs: Test 06/03/24 04:22 06/03/24 03:11 06/02/24 16:00 06/02/24 09:08 Range/Units Whole Blood Glucose 158 H 70-110 MG/DL Sodium Level 140 136-145 mmol/L Potassium Level 4.6 3.5-5.1 mmol/L Chloride Level 105 101-111 mmol/L Carbon Dioxide Level 12 L 21-32 mmol/L Blood Urea Nitrogen 26 H 7-18 mg/dL Creatinine 2.2 H 0.5-1.0 mg/dL Glomerular Filtration Rate Calc 23 >90 mL/min Random Glucose 196 #H 70-105 mg/dL Total Calcium 7.0 L 8.5-10.1 mg/dL Magnesium Level 3.00 H 1.80-2.40 mg/dL Troponin I High Sensitivity 182 *H 4-50 ng/L Lactic Acid Level 13.4 H 0.8-2.5 mmol/L Whole Blood Ketones Quantitative 2.7 H 0.0-0.6 mmol/L Ammonia 43 H 11-32 umol/L Test 06/02/24 04:32 06/01/24 10:40 Range/Units Total Bilirubin 0.4 0.2-1.0 mg/dL Aspartate Amino Transf (AST/SGOT) 34 10-37 U/L Alanine Aminotransferase (ALT/SGPT) 30 12-78 U/L Alkaline Phosphatase 357 H 50-136 U/L Total Protein 6.8 6.0-8.3 g/dL Albumin 1.3 L 3.5-5.0 g/dL Total Creatine Kinase 44 # 21-232 U/L Thyroid Stimulating Hormone (TSH) 1.02 0.36-3.74 uIU/mL Coagulation Labs: Test 06/03/24 03:11 06/02/24 16:00 06/02/24 09:08 Range/Units Activated Partial Thromboplast Time 45.1 H 26.3-35.5 SEC Prothrombin Time 17.5 H 9.6-11.6 SEC Prothromb Time International Ratio 1.68 H 0.85-1.15 D-Dimer Quantitative (PE/DVT) 6583 *H 0-500 ng/mL DIAGNOSTICS / RADIOLOGY RESULTS: IMAGING REPORT Signed PATIENT: MARIELA SAGE MR#: [id number] : 1950 SEX: F AGE: 73 LOCATION: [facility] ORDER STATUS: ADM IN REPORT#: [id number] SERVICE [id number] REASON: intubated ORDERING PHYSICIAN: JEFFREY LECHUGA PROCEDURE: CXR1VW - CHEST 1VW CHEST 1VW HISTORY: Intubation COMPARISON: 06/02/2024 FINDINGS: A frontal projection of the chest was obtained. There are bilateral pulmonary infiltrates suggestive of pulmonary vascular congestion with possible superimposed pneumonitis. Endotracheal tube is seen with distal tip at 2.9 cm above vandana. The heart is borderline enlarged. All the lines and tubes are again seen in place. No evidence of aortic calcification is seen. IMPRESSION: 1. Bilateral pulmonary infiltrates are seen suggestive of pulmonary vascular congestion with possible superimposed pneumonitis. DICTATED BY: SHANA INFANTE MD DATE: 06/03/24936 ELECTRONICALLY SIGNED BY: SHANA INFANTE MD DATE: 06/03/2495 PLAN DNR per family request NEURO: Minimize central acting medications as possible. Fall Precautions. Well lighted room through the day and minimize interruptions through the night to prevent acute delirium. sedation vacationdaily as tolerated PULMONARY: Supplemental 02 as needed Titrate Fio2 to keep Spo2 > or = 90% DuoNebs and CPT as needed IS hourly while awake for pulmonary hygiene Out of bed to chair as tolerated VAP Bundle Vent/BIPAP Settings: ACVC TV 400, RR28, FIO2 50%, Peep of 6 PF Ratio 274 CARDIOVASCULAR: Follow hemodynamics. Titrate vasopressor to keep MAP >65 or systolic blood pressure >95mmHg mottled skin - 1 L of LR now DRIPS: Bicarb drip amiodarone levo zach vaso fentanyl versed heaprin gtt placed on hold 06/03/24- due to gi bleed LINES: PIV RIght IJ central line arterial line GI & NUTRITION: Continue nutritional support Aspirations precautions Prokinetic agents and laxatives as needed NG tube on LIS - GI bleed consider feedings once resolved Protonix KIDNEYS & ELECTROLYTES: Strict monitoring of intake and output Daily weights Avoid nephrotoxic agents Monitor electrolytes and replace as needed Goal urine output of 30mL/hr or 0.5mL/kg/hr consider lasix gtt once pressors weaned bicarp pushes as needed ENDOCRINE: Maintain blood glucose between 100-180 at all times. Insulin sliding scale for blood glucose management Euglycemic DKA- continue with protocol ketones neg on 06/03 stop dka protocol INFECTIOUS DISEASE: Trend temperature. Cruz-culture if febrile. Micro: 01/28/24 Klebsiella pneumoniae in the blood 05/30/24 Klebsiella pneumoniae in the urine Antibiotics: Meropenem HEMATOLOGY & COAGULATION: Monitor H&H. Keep Hgb > 7 Transfuse 1 unit of PRBC for Hgb < 7 Transfuse 1 pack of platelets of platelets < 20, 000 Watch for any signs and symptoms of bleeding SKIN: Pressure ulcer prevention per facility protocol Rehab: PT/OT Prophylaxis: GI: protonix BID DVT: scds for now Code Status: Full Resuscitation Disposition: ICU Other: Total patient care time exceeds 45 minutes excluding all procedures. Case was discussed and seen with my supervising physician. The above plan was formulated and agreed upon. JEFFREY LECHUGA Jun 03, 2024 08:41
[2024-06-03 08:43] LABS: CREATININE 2.5 mg/dL (0.5-1.0); POTASSIUM 3.9 mmol/L (3.5-5.1)
--- NOTE | 2024-06-03 08:59 | PN ---
[facility] CARDIOLOGY PROGRESS NOTE Date Patient Seen: Jun 03, 2024 Time of Visit: 08:46 Interval History: [ Tele with a-fib RVR HR 100-110s bpm] Physical Examination: GENERAL: [No acute distress.] HEAD: [Normal with no signs of head trauma.] EYES: [PERRLA, EOMI, conjunctiva and sclera normal.] ENT: [Hearing grossly intact, normal oropharynx.] NECK: [Supple without JVD. There is no tenderness, lymphadenopathy, or masses. No thyromegaly. Normal carotid upstrokes without bruits.] LUNGS: [Clear breath sounds bilaterally. There are right basilar rales one third of the way up the chest. No wheezes, or rhonchi.] HEART: [Normal rate and rhythm. Normal S1 and S2 without mumurs, gallop or rub.] VASC: [Peripheral pulses +2 bilaterally.] ABD: [Bowel sounds normal, soft, nontender, no masses, no organomegaly. No audible bruits.] : [Not examined] LYMPH: [No lymphadenopathy noted.] EXT: [No clubbing, cyanosis or edema.] SKIN: [No rashes or lesions noted.] NEURO: [Awake, alert, and oriented x3. No focal sensory or strength deficits noted.] Laboratory: [ ] Hematology Labs: Test 06/03/24 03:11 Range/Units White Blood Count 19.1 H 4.8-10.8 K/uL Red Blood Count 2.61 L 4.00-5.50 MIL/uL Hemoglobin 7.7 L 12.0-16.0 g/dL Hematocrit 23.8 L 36-48 % Mean Corpuscular Volume 91.2 79-99 fL Mean Corpuscular Hemoglobin 29.5 27.0-33.0 pg Mean Corpuscular Hemoglobin Concent 32.4 32.0-36.0 g/dL Red Cell Distribution Width 16.3 H 11.0-15.5 % Platelet Count 168 # 130-400 K/uL Mean Platelet Volume 13.1 H 7.5-10.5 fL Immature Granulocyte % (Auto) 6.4 H 0-1 % Neutrophils (%) (Auto) 74.6 40.0-77.0 % Lymphocytes (%) (Auto) 10.9 L 21.0-51.0 % Monocytes (%) (Auto) 7.4 3.0-13.0 % Eosinophils (%) (Auto) 0.1 0.0-8.0 % Basophils (%) (Auto) 0.6 0.0-5.0 % Neutrophils # (Auto) 14.3 H 1.8-7.7 K/uL Lymphocytes # (Auto) 2.1 1.0-4.8 K/uL Monocytes # (Auto) 1.4 H 0.1-1.0 K/uL Eosinophils # (Auto) 0.01 0.00-0.70 K/uL Basophils # (Auto) 0.11 0.00-0.20 K/uL Absolute Immature Granulocyte (auto 1.23 H 0-1 K/uL Nucleated Red Blood Cells 2.0 H 0.0-0.19 % Chemistry Labs: Test 06/03/24 08:04 06/03/24 04:22 06/03/24 03:11 06/02/24 16:00 Range/Units Sodium Level 143 136-145 mmol/L Potassium Level 3.9 3.5-5.1 mmol/L Chloride Level 103 101-111 mmol/L Carbon Dioxide Level 11 L 21-32 mmol/L Blood Urea Nitrogen 26 H 7-18 mg/dL Creatinine 2.5 H 0.5-1.0 mg/dL Glomerular Filtration Rate Calc 20 >90 mL/min Random Glucose 175 H 70-105 mg/dL Total Calcium 6.8 L 8.5-10.1 mg/dL Whole Blood Glucose 158 H 70-110 MG/DL Magnesium Level 3.00 H 1.80-2.40 mg/dL Troponin I High Sensitivity 182 *H 4-50 ng/L Lactic Acid Level 13.4 H 0.8-2.5 mmol/L Test 06/02/24 09:08 06/02/24 04:32 06/01/24 10:40 Range/Units Whole Blood Ketones Quantitative 2.7 H 0.0-0.6 mmol/L Ammonia 43 H 11-32 umol/L Total Bilirubin 0.4 0.2-1.0 mg/dL Aspartate Amino Transf (AST/SGOT) 34 10-37 U/L Alanine Aminotransferase (ALT/SGPT) 30 12-78 U/L Alkaline Phosphatase 357 H 50-136 U/L Total Protein 6.8 6.0-8.3 g/dL Albumin 1.3 L 3.5-5.0 g/dL Total Creatine Kinase 44 # 21-232 U/L Thyroid Stimulating Hormone (TSH) 1.02 0.36-3.74 uIU/mL Coagulation Labs: Test 06/03/24 03:11 06/02/24 16:00 06/02/24 09:08 Range/Units Activated Partial Thromboplast Time 45.1 H 26.3-35.5 SEC Prothrombin Time 17.5 H 9.6-11.6 SEC Prothromb Time International Ratio 1.68 H 0.85-1.15 D-Dimer Quantitative (PE/DVT) 6583 *H 0-500 ng/mL Diagnostics / Radiology: [Copy/Paste Echos/Imaging Report here] Impression and Plan: [ Chest pain Abdominal pain Sepsis Bacteremia, preliminary blood culture results UA Klebsiella pneumonia UTI, urine culture positive for Klebsiella pneumoniae Leukocytosis HTN HLD DM type II Angina CAD s/p LHC on 11/10/2020 with 90% stenosis to the small diagonal otherwise nonobstructive CAD with an EF of 60% treated medically Mild aortic stenosis with a gradient of 15 mmHg 2D Echo on06/09/2019 with an EF of 55-60%, stage II diastolic dysfunction, hypokinesis in the basal inferoseptal wall. moderately dilated left atrium, mild MAC with mild MR Asthma Single kidney Chronic low back and hip pain CKD stage 3a Chest pain Troponin of 13, 132.1, and 142--182 likely multifactorial from Sepsis, Acute respiratory distress and tachycardia Chart review revealed the patient converted to Afib with RVR at 1553 then received Nitro-glycerin ointment and aspirin 162mg at 6:00 p.m. 06/01/2024 -Obtain 2D echo to assess LV function and valvular pathology -Cardiac enzyme x1 to assess trend Paroxysmal atrial fibrillation TSH is normal at 1.02 Telemetry strip from 06/01/2024 at 1553 demonstrated atrial fibrillation with RVR with a hr of 154bpm No additional telemetry strips in the chart demonstrating Afib. She is currently sinus tachycardia. -Continue Metoprolol tartrate 25mg BID -Diltiazem gtt -recommend anticoagulation will start lovenox then transition to Thank you for this consult. Beverly Ambrocio MD ] BEVERLY AMBROCIO MD Jun 03, 2024 08:59
[2024-06-03] MEDS: PANTOPrazole 40 MG/VIAL IVP SCH (09:00)
[2024-06-03] MEDS ORDERED: CALCIUM GLUC 1GM 2 GM in 0.9%NACL 100ML 100 ML IV SCH (09:00)
--- NOTE | 2024-06-03 09:45 | HMCIMG ---
CHEST 1VW HISTORY: Intubation COMPARISON: 06/02/2024 FINDINGS: A frontal projection of the chest was obtained. There are bilateral pulmonary infiltrates suggestive of pulmonary vascular congestion with possible superimposed pneumonitis. Endotracheal tube is seen with distal tip at 2.9 cm above vandana. The heart is borderline enlarged. All the lines and tubes are again seen in place. No evidence of aortic calcification is seen. IMPRESSION: 1. Bilateral pulmonary infiltrates are seen suggestive of pulmonary vascular congestion with possible superimposed pneumonitis.
[2024-06-03 09:53] LABS: HEMATOCRIT 22.1 % (36-48)
--- NOTE | 2024-06-03 10:00 | NUR ---
DNR FAMILY AT BEDSIDE. JEFFREY SEBASTIAN SPOKE EXTENSIVELY TO FAMILY ON PT'S POOR PROGNOSIS. SON ALEX MARISCAL SIGNED DNR.
[2024-06-03 10:26] LABS: CREATININE 2.5 mg/dL (0.5-1.0); POTASSIUM 3.7 mmol/L (3.5-5.1)
[2024-06-03] MEDS: CALCIUM GLUC 1GM 2 GM in 0.9%NACL 100ML 100 ML IV ONE (10:29)
[2024-06-03] MEDS: NOREPINEPHRINE BITARTRATE 32 MG in 0.9% NACL 250ML 250 ML IV PRN (10:31)
--- NOTE | 2024-06-03 11:31 | NUR ---
Emotional Support Sw saw daughter crying, offered assistance. Daughter states pt getting sicker and may not survive stay. Sw provided emotional support.
--- NOTE | 2024-06-03 12:11 | PN ---
[facility] PROGRESS NOTE Date of Service: Jun 03, 2024 Time of Service: 11:50 SUBJECTIVE: This is a 73-year-old female patient with a past medical history of hypertension, diabetes mellitus type 2, osteoporosis, osteoarthritis, asthma and breast CA currently in remission presented to the ED with a chief complaint of generalized abdominal pain started 8 days ago. The pain is aggravated by walking. She denies nausea, vomiting, diarrhea, shortness of breath and chest pain. In the ED she was tachypneic and labs were remarkable for leukocytosis WBC 17.4 Left shift neutrophils 84.6 %. Lactic acid 2.4. Urine analysis remarkable for UTI. Patient was admitted for sepsis, electrolyte imbalance and and UTI. 05/30/24 the patient is seen and examined at the bedside today. She is complaining of generalized abdominal pain with a pain score 8/10. She denies nausea, vomiting, fever or chills. Labs are remarkable for WBC 17.4, potassium 5.2, BUN 46, creatinine 1.8 GFR 30 HB A1c 9.4%, procalcitonin 2.83, lipase 240, lactate is down to 1.5 From 2.4. Urine analysis is positive for occult blood moderate, leukocyte esterase 500, urine WBCs 26-50, WBC too numerous to count, urine sodium 26. CT abdomen and pelvis without contrast showed no acute findin gs and possible constipation. Urine and blood culture in process. Patient has had no bowel movement since 3-4 days and we will order laxatives. She will be monitored closely. 05/31/24 The patient is seen and examined at the bedside today.Vitals increased pulse rate 103, sinus tachycardia. She is complaining of nausea and severe, constant, diffuse abdominal pain 10/10 and bilateral hip pain, prominent on right side. She did not have a bowel movement yet. She denies fever, headache, chills, vomiting, shortness of breath, chest pain, palpitations, diarrhea, difficulty in urination. Remarkable lab results WBC increased from 17.4-19.1, low hemoglobin 10.9, low sodium 135. BUN decreased from 46 to 27 and creatinine 1.8 to 1.2. Abdominal x-ray resulted in mild gaseous distention of the colon. Bilateral hip x-ray resulted in no acute displaced fracture or dislocation. Blood Cultures resulted in Gram-positive rods. Urine Culture resulted in Gram- negative rods. 06/01/24 Patient seen and examined at the bedside today. Today her vital signs are blood pressure 150/75, pulse rate 107, respiratory rate 20, SpO2 99% on room air,T-max 98.2. She is complaining of nausea and severe, constant, diffuse abdominal pain 10/10. WBC trending upwards from 19.1 to 23.6, hemoglobin dropping from 10.9 to 9.2. Bicarb was given, increased from [address] scan wi oral contrast showed no evidence of any acute intra-abdominal or pelvic process and a small fat-containing nonobstructing left periumbilical hernia. Per patient, she had h/o multiple hernia surgeries and cholecystectomy in the past. Will order KUB x-ray. 06/02/24 Patient was seen at bedside today. Rapid response was initiated this morning since patient was having heart rate in 140s and was in moderate distress, AFib with RVR. She was treated with [id number] mg b.i.d. Lopressor 5 mg and Ativan was given. Labs were ordered and revealed metabolic acidosis with the lactic acid of 4.92 initially it was 1.7, whole blood ketones of 2.7 and ammonia of 43. Preliminary blood culture showed Klebsiella in the blood and urine and Gram-po sitive change in blood cultures currently on ceftriaxone and vancomycin. ABG showed pH 7.3, pCO2 18, bicarb 8.7, base excess -15, lactic acid 4.92, O2 saturation 96.3, glucose was 175. She was transferred to PCCU and was given sodium bicarbonate. Possibly euglycemic diabetic ketoacidosis, was started on insulin drip. She is still sinus tachycardiac and was started on amiodarone d rip. Patient's prognosis is guarded. 06/03/24 Patient was seen at bedside today, she was upgraded to ICU due to respiratory distress and was intubated yesterday. Her D-dimer was elevated at 6000, ultrasound doppler showed no evidence of DVT. Heparin drip was started since she coded but had ROSC. Cardiology was consulted, currently on amlo drip. Diltiazem and Metoprolol were stopped due to hypotension. Patient is on 3 pressors, sharon- synerphine, vasopressin, levophed. Heparin drip was stopped since she was bleeding from NG tube. Lactic acid going up at 16.53, Cr at 2.2, GFR 23. Her ABG pH 7.209, pCO2 26, pO2 137, bicarb 10. Code status was discussed with the family by BIS and they did not want any resuscitative measures done. CM to f/u for possible LTAC placement once condition stable vs hospice if patient's condition worsens. REVIEW OF SYSTEMS unable to perform since the patient is intubated and sedated. PHYSICAL EXAM GENERAL: Sedated, intubated HEENT: EOMI, Sclera non icteric, moist mucosa NECK: Supple, no JVD, trachea midline LUNGS: Clear breath sounds bilaterally. No wheezes HEART: Regular rate and rhythm. Normal S1 and S2, without murmurs ABD: Obese. Abdomen tender, round. Bowel sounds diminished. EXT: No clubbing cyanosis or edema, mottled to all extremities. NEURO: Intubated and sedated- unable to assess Vital Signs (last 8hr) Date Time Temp Pulse Resp B/P (MAP) Pulse Ox O2 Delivery O2 Flow Rate FiO2 06/03/24 09:36 81 50 06/03/24 08:00 95 Ventilator+ 50 06/03/24 06:37 79 50 06/03/24 06:00 79 28 101/56 95 Ventilator 50 06/03/24 05:30 80 28 118/61 95 Ventilator 50 06/03/24 05:15 81 28 130/64 95 06/03/24 05:00 77 29 101/57 95 06/03/24 04:45 79 28 96/55 95 06/03/24 04:30 77 29 102/57 95 06/03/24 04:15 77 31 99/56 99 06/03/24 04:00 95 Ventilator+ 50 06/03/24 04:00 77 50 06/03/24 04:00 50 06/03/24 04:00 97.7 77 30 102/57 95 Ventilator 50 LABS: Laboratory: Test 06/03/24 10:58 06/03/24 09:26 06/03/24 08:04 06/03/24 07:35 Range/Units Whole Blood Glucose 131 H 70-110 MG/DL Hemoglobin 7.1 L 12.0-16.0 g/dL Hematocrit 22.1 L 36-48 % Sodium Level 146 H 136-145 mmol/L Potassium Level 3.7 3.5-5.1 mmol/L Chloride Level 105 101-111 mmol/L Carbon Dioxide Level 14 L 21-32 mmol/L Blood Urea Nitrogen 26 H 7-18 mg/dL Creatinine 2.5 H 0.5-1.0 mg/dL Glomerular Filtration Rate Calc 20 >90 mL/min Random Glucose 132 H 70-105 mg/dL Whole Blood Ketones Quantitative 0.5 0.0-0.6 mmol/L Total Calcium 6.7 L 8.5-10.1 mg/dL Activated Partial Thromboplast Time 59.3 #H 26.3-35.5 SEC Blood Gas Specimen Type Arterial Arterial Blood pH 7.209 *L 7.350-7.450 Arterial Blood Partial Pressure CO2 26 L 32-45 mmHg Arterial Blood Partial Pressure O2 137.4 H 83.0-108.0 mmHg Arterial Blood HCO3 10.1 L 21.0-28.0 mmol/L Arterial Blood Oxygen Saturation 97.4 94.0-98.0 % Arterial Blood Base Excess -16.3 L -2.0-3.0 mmol/L Hemoglobin (Blood Gas) 7.6 L 12.0-16.0 g/dL Sodium (Blood Gas) 140 136-145 MMOL/L Bedside Potassium (Blood Gas) 3.8 3.4-4.5 MMOL/L Bedside Chloride (Blood Gas) 103 98-107 MMOL/L Bedside Glucose (Blood Gas) 179 H 65-95 MG/DL Bedside Ionized Calcium (Blood Gas) 0.92 L 1.15-1.33 MMOL/L Bedside Lactic Acid (Blood Gas) 16.53 *H 0.36-0.75 MMOL/L Blood Gas Temperature 37.0 35.5-37.0 CELSIUS Blood Gas Respiration Rate 28.0 min. Blood Gas Vent Mode AC-VC ROOM AIR FiO2 50.0 % Blood Gas Tidal Volume 400 ml Blood Gas PEEP 8 cm H2O Blood Gas Specimen Comment A-LINE CORNELIO Test 06/03/24 03:11 06/02/24 16:00 06/02/24 09:08 06/02/24 09:07 Range/Units White Blood Count 19.1 H 4.8-10.8 K/uL Red Blood Count 2.61 L 4.00-5.50 MIL/uL Mean Corpuscular Volume 91.2 79-99 fL Mean Corpuscular Hemoglobin 29.5 27.0-33.0 pg Mean Corpuscular Hemoglobin Concent 32.4 32.0-36.0 g/dL Red Cell Distribution Width 16.3 H 11.0-15.5 % Platelet Count 168 # 130-400 K/uL Mean Platelet Volume 13.1 H 7.5-10.5 fL Immature Granulocyte % (Auto) 6.4 H 0-1 % Neutrophils (%) (Auto) 74.6 40.0-77.0 % Lymphocytes (%) (Auto) 10.9 L 21.0-51.0 % Monocytes (%) (Auto) 7.4 3.0-13.0 % Eosinophils (%) (Auto) 0.1 0.0-8.0 % Basophils (%) (Auto) 0.6 0.0-5.0 % Neutrophils # (Auto) 14.3 H 1.8-7.7 K/uL Lymphocytes # (Auto) 2.1 1.0-4.8 K/uL Monocytes # (Auto) 1.4 H 0.1-1.0 K/uL Eosinophils # (Auto) 0.01 0.00-0.70 K/uL Basophils # (Auto) 0.11 0.00-0.20 K/uL Absolute Immature Granulocyte (auto 1.23 H 0-1 K/uL Nucleated Red Blood Cells 2.0 H 0.0-0.19 % Magnesium Level 3.00 H 1.80-2.40 mg/dL Troponin I High Sensitivity 182 *H 4-50 ng/L Prothrombin Time 17.5 H 9.6-11.6 SEC Prothromb Time International Ratio 1.68 H 0.85-1.15 Lactic Acid Level 13.4 H 0.8-2.5 mmol/L D-Dimer Quantitative (PE/DVT) 6583 *H 0-500 ng/mL Ammonia 43 H 11-32 umol/L Blood Gas Flow-by 2.00 0.00-15.00 L/min Test 06/02/24 04:32 06/01/24 20:20 Range/Units Total Bilirubin 0.4 0.2-1.0 mg/dL Aspartate Amino Transf (AST/SGOT) 34 10-37 U/L Alanine Aminotransferase (ALT/SGPT) 30 12-78 U/L Alkaline Phosphatase 357 H 50-136 U/L Total Protein 6.8 6.0-8.3 g/dL Albumin 1.3 L 3.5-5.0 g/dL Stool Occult Blood POSITIVE H NEGATIVE Current Medications Medications (Trade) Dose Ordered Sig/Durga Route PRN Reason Start Time Stop Time Status Last Admin Dose Admin Acetaminophen (TYLenol 500MG TAB) 500 mg Q4H PRN PO TEMPERATURE GREATER THAN 101.5 05/31/24 11:00 06/30/24 10:59 06/01/24 08:56 500 MG Albumin Human 100 ml @ 0 mls/hr AD IV 06/03/24 06:00 07/03/24 05:59 06/03/24 06:12 100 MLS/HR Albuterol Sulfate (Proventil 0.083% 2.5mg/3ml) 2.5 mg Q6H PRN IH WHEEZING 05/30/24 14:00 06/29/24 12:59 Albuterol Sulfate (Proventil 0.083% 2.5mg/3ml) 2.5 mg Q6HPRN IH 05/30/24 13:00 05/30/24 13:55 DC Albuterol Sulfate (Proventil 0.083% 2.5mg/3ml) 10 mg ONCE IH 05/30/24 04:30 05/30/24 12:45 DC 05/30/24 05:18 10 MG Amiodarone HCl 150 mg/Dextrose 100 ml @ 0 mls/hr PROTOCOL IV 06/02/24 11:00 06/03/24 06:41 DC 06/02/24 13:55 300 MLS/HR Amiodarone HCl 150 mg/Dextrose 103 ml @ 0 mls/hr AD PRN IV Bolus dose 06/02/24 23:30 06/03/24 06:41 DC 06/03/24 00:10 400 MLS/HR Amiodarone HCl 360 mg/Dextrose 200 ml @ 0 mls/hr PROTOCOL IV 06/02/24 11:00 07/02/24 10:59 06/03/24 00:25 33.3 MLS/HR Amiodarone HCl 540 mg/Dextrose 300 ml @ 0 mls/hr PROTOCOL IV 06/02/24 11:00 07/02/24 10:59 06/02/24 19:30 16 MLS/HR Amiodarone HCl 900 mg/Dextrose 218 ml @ 0 mls/hr AD PRN IV As Directed 06/02/24 23:30 06/03/24 06:41 DC Amlodipine Besylate (NorvASC 5MG TAB) 5 mg DAILY PO 05/31/24 09:00 06/02/24 12:19 DC 06/01/24 08:45 5 MG Atorvastatin Calcium (LIPItor 40MG) 40 mg DAILY PO 05/31/24 09:00 06/30/24 08:59 06/03/24 08:14 40 MG Brimonidine Tartrate (Alphagan P) 0.2ML OU BID BID OU 05/30/24 21:00 06/29/24 20:59 06/01/24 20:26 1 ML Calcium Gluconate (Calcium Gluc 1gm Vial) 1 gm AD PRN IV PROTOCOL 06/03/24 06:00 06/03/24 06:01 DC Calcium Gluconate (Calcium Gluc 1gm Vial) 1 gm PROTOCOL IVPB 06/03/24 06:00 07/03/24 05:59 06/03/24 06:11 1 GM Calcium Gluconate (Calcium Gluc 1gm Vial) 2 gm ONCE IV 06/03/24 08:30 06/03/24 08:33 DC Calcium Gluconate 1 gm/Sodium Chloride 100 ml @ 0 mls/hr AD PRN IV Serum Calcium Correction 06/03/24 06:00 06/03/24 06:02 DC Calcium Gluconate 2 gm/Sodium Chloride 100 ml @ 0 mls/hr PROTOCOL IV 06/03/24 09:00 06/03/24 09:44 DC Ceftriaxone Sodium (ROCEphine 1G INJ) 1 gm Q12H IVPB 05/31/24 15:00 06/02/24 06:13 DC 06/02/24 02:11 1 GM Ceftriaxone Sodium (Rocephin 2gm Inj) 2 gm Q24H IVPB 06/02/24 06:30 06/02/24 06:18 DC Ceftriaxone Sodium (Rocephin 2gm Inj) 2 gm Q24H IVPB 06/03/24 02:30 06/02/24 13:44 DC Dexmedetomidine/ Sodium Chloride (PRECEdex 400MCG/ 100ML-NS) 400 mcg PROTOCOL STAT IV 06/02/24 12:15 06/02/24 12:18 DC 06/02/24 12:27 400 MCG Dextrose/Sodium Chloride 1,000 ml @ 0 mls/hr AD IV 06/02/24 11:00 07/02/24 10:59 06/03/24 03:59 125 MLS/HR Diltiazem HCl 125 mg/Sodium Chloride 125 ml @ 0 mls/hr PROTOCOL IV 06/02/24 13:00 07/02/24 12:59 Epinephrine HCl 10 mg/Sodium Chloride 250 ml @ 0 mls/hr AD PRN IV TITRATE 06/03/24 06:00 07/03/24 05:59 Fentanyl Citrate 100 ml @ 2.5 mls/hr PROTOCOL IV 06/02/24 13:30 06/09/24 13:29 06/03/24 03:25 2.5 MLS/HR Gabapentin (NEURontin 100 mg CAP) 100 mg TID PO 05/30/24 14:00 06/29/24 13:59 06/03/24 08:14 100 MG Glycerin (Glycerin Adult Supp) 1 supp TID RC 05/31/24 21:00 06/02/24 10:00 DC 06/01/24 08:56 1 SUPP Heparin Sodium (Porcine) (HEParin 5,000 UNIT VIAL) *calculation based on ACTUAL B... AD PRN IV HEPARIN PROTOCOL 06/02/24 15:00 07/02/24 14:59 Heparin Sodium (Porcine) (HEParin 5,000 UNIT VIAL) 5,000 unit BID SQ 05/30/24 09:00 06/02/24 13:55 DC 06/01/24 20:32 5,000 UNIT Heparin Sodium/ Dextrose 250 ml @ 0 mls/hr Q6H IV 06/02/24 15:00 07/02/24 14:59 06/02/24 16:49 13.26 MLS/HR Hydralazine HCl (APRESOLine 20MG INJ) 10 mg Q6H PRN IV For:SBP above 160;DBP above 90 05/30/24 05:30 06/29/24 05:29 Hydromorphone HCl (DiLAUDid 1MG INJ) 1 mg Q2H PRN IVP SEVERE PAIN (7-10) 06/01/24 14:00 06/06/24 13:59 06/02/24 03:03 1 MG Insulin Human Regular (humuLIN R 100 UNIT/ML 3ML) INSULIN SLIDING SCAL... ACHS SQ 05/30/24 07:30 06/29/24 07:29 06/02/24 06:13 2 UNIT Insulin Human Regular 100 unit/ Sodium Chloride 101 ml @ 0 mls/hr PROTOCOL IV 06/02/24 11:00 07/02/24 10:59 06/02/24 12:41 0 MLS/HR Ketorolac Tromethamine (toRADol) 15 mg Q6H IV 06/01/24 14:00 06/06/24 13:59 06/02/24 02:11 15 MG Ketorolac Tromethamine (toRADol) 15 mg Q6H PRN IV MODERATE PAIN (4-6) 06/01/24 11:30 06/01/24 14:03 DC 06/01/24 11:34 15 MG Lactated Ringer's 1,000 ml @ 0 mls/hr Q0M IV 06/02/24 09:30 06/02/24 10:29 DC Lactated Ringer's 1,000 ml @ 0 mls/hr Q0M IV 06/02/24 10:30 07/02/24 10:29 Lactated Ringer's 1,000 ml @ 60 mls/hr [id number] IV 05/30/24 05:30 05/31/24 17:15 DC 05/31/24 00:11 60 MLS/HR Latanoprost (Xalatan) 1 DROP OU HS HS OU 05/30/24 21:00 06/29/24 20:59 06/01/24 20:26 1 DROP Lorazepam (AtiVAN) 0.5 mg Q6H PRN IVP ANXIETY/AGITATION 06/02/24 07:00 06/09/24 06:59 Losartan Potassium (CozAAR 100MG TAB) 100 mg DAILY PO 05/31/24 09:00 05/30/24 13:53 DC Magnesium Sulfate 50 ml @ 0 mls/hr PROTOCOL IV 06/02/24 11:00 06/02/24 23:28 DC Magnesium Sulfate 50 ml @ 0 mls/hr PROTOCOL IV 06/02/24 23:30 07/02/24 23:29 Magnesium Sulfate 50 ml @ 0 mls/hr PROTOCOL PRN IV hypomagnesemia 05/30/24 05:30 06/02/24 10:58 DC Meropenem (Merrem) 1 gm Q12H IVPB 06/02/24 14:00 06/12/24 13:59 06/03/24 02:09 1 GM Meropenem 1 gm/ Sodium Chloride 100 ml @ 33.333 mls/ hr Q8H IVPB 06/02/24 14:00 06/02/24 13:49 DC Metoclopramide HCl (regLAN 10MG IV) 10 mg TIDAC IVP 05/31/24 21:00 06/30/24 20:59 06/03/24 08:14 10 MG Metoprolol Tartrate (loprESSOR) 25 mg BID PO 06/02/24 09:00 06/03/24 09:12 DC 06/02/24 20:37 25 MG Midazolam HCl 50 ml @ 0 mls/hr PROTOCOL IV 06/02/24 13:30 06/09/24 13:29 06/03/24 06:48 10 MLS/HR Midazolam HCl 50 mg/Sodium Chloride 50 ml @ 0 mls/hr PROTOCOL IV 06/02/24 13:30 06/02/24 13:23 DC Morphine Sulfate (morPHINE 2MG SYG) 2 mg ONCE STAT IVP 05/30/24 02:21 05/30/24 02:23 DC 05/30/24 02:30 2 MG Morphine Sulfate (morPHINE 2MG SYG) 2 mg Q4H PRN IVP SEVERE PAIN (7-10) 05/30/24 05:30 06/01/24 14:02 DC 05/30/24 16:06 2 MG Norepinephrine 250 ml @ 0 mls/hr PROTOCOL IV 06/02/24 10:30 06/02/24 15:55 DC Norepinephrine Bitartrate (Norepineph 16 Mg/250ml NS Premix) ad PROTOCOL IV 06/02/24 16:00 06/03/24 09:45 DC 06/03/24 06:48 16 MG Norepinephrine Bitartrate 32 mg/ Sodium Chloride 250 ml @ 0 mls/hr Q0M PRN IV OTHER [SEE ORDER COMMENTS] 06/03/24 10:00 07/03/24 09:59 06/03/24 10:31 0 MLS/HR Ondansetron HCl (zoFRAN 4MG INJ) 4 mg Q6H PRN IV NAUSEA/VOMITING 05/30/24 05:30 06/29/24 05:29 Pantoprazole Sodium (PROTonix 40MG INJ) 40 mg BID IVP 06/03/24 09:00 07/02/24 08:59 Pantoprazole Sodium (PROTonix 40MG INJ) 40 mg DAILY IVP 06/02/24 09:00 06/03/24 08:38 DC 06/03/24 08:14 40 MG Pantoprazole Sodium (PROTonix 40MG TAB) 40 mg DAILY PO 05/30/24 09:00 06/01/24 18:02 DC 06/01/24 08:45 40 MG Phenylephrine HCl 10 mg/Sodium Chloride 250 ml @ 0 mls/hr PROTOCOL PRN IV PROTOCOL 06/02/24 13:00 06/02/24 14:34 DC Phenylephrine HCl 100 mg/Sodium Chloride 250 ml @ 0 mls/hr PROTOCOL IV 06/02/24 14:30 07/02/24 14:29 06/03/24 10:30 31.5 MLS/HR Piperacillin Sod/ Tazobactam Sod (Zosyn 3.375gm+NS 50ml) 3.375 gm ONCE STAT IVPB 05/30/24 02:43 05/30/24 02:47 DC 05/30/24 03:03 3.375 GM Piperacillin Sod/ Tazobactam Sod (Zosyn 3.375gm+NS 50ml) 3.375 gm Q12H IV 05/30/24 14:30 05/31/24 15:02 DC 05/31/24 14:24 3.375 GM Polyethylene Glycol (MIRalax 3350 17 GM POWD.PACK) 17 gm DAILY PO 05/31/24 09:00 06/30/24 08:59 06/01/24 08:45 17 GM Potassium Chloride 20 meq/ Sodium Chloride 1,010 ml @ 0 mls/hr PROTOCOL IV 06/02/24 11:00 07/02/24 10:59 Potassium Chloride/Dextrose/ Sod Cl 1,000 ml @ 0 mls/hr AD IV 06/02/24 11:00 07/02/24 10:59 Potassium Chloride 100 ml @ 100 mls/hr AD PRN IV POTASSIUM PROTOCOL 05/30/24 05:30 06/29/24 05:29 Potassium Chloride (K-Dur 10meq Sr Tab) 10 meq AD PRN PO POTASSIUM PROTOCOL 05/30/24 06:00 06/29/24 05:59 Potassium Chloride (KCl 10% Elixir 20meq/15ml) 10 meq AD PRN PO POTASSIUM PROTOCOL 05/30/24 05:30 06/29/24 05:29 Simethicone (Mylicon) 120 mg Q6H PRN PO GI GAS 05/31/24 21:00 06/30/24 20:59 Sodium Bicarbonate 150 meq/Dextrose 1,150 ml @ 125 mls/hr Q9H12M IVP 06/02/24 22:00 07/02/24 21:59 06/03/24 09:27 125 MLS/HR Sodium Chloride 1,000 ml @ 100 mls/hr Q10H IV 05/31/24 17:30 06/02/24 10:59 DC 06/01/24 20:36 100 MLS/HR Sodium Chloride 1,000 ml @ 200 mls/hr PROTOCOL IV 06/02/24 11:00 07/02/24 10:59 Sodium Chloride (NS 50ml) 50 ml AD IV 06/03/24 06:00 07/03/24 05:59 Vancomycin HCl 250 ml @ 150 mls/hr Q24H IV 05/31/24 16:00 06/03/24 08:42 DC 06/02/24 17:19 150 MLS/HR Vancomycin HCl (Vancomycin Protocol) 1 each AD IV 05/31/24 15:30 06/14/24 15:29 Vancomycin HCl (Vancomycin 1g/ 250ml Kit) 1 gm ONCE STAT IV 05/30/24 02:43 05/30/24 02:47 DC 05/30/24 03:50 1 GM Vasopressin 40 units/Sodium Chloride 40 ml @ 0 mls/hr PROTOCOL IV 06/02/24 14:30 07/02/24 14:29 06/03/24 06:47 1.8 MLS/HR DIAGNOSTICS / RADIOLOGY: [ ] REASON: MOTTELED ORDERING PHYSICIAN: JORGE ARAMBULA CNP PROCEDURE: VENOUS GLORIA - US VENOUS DOPPLER BILATERAL US VENOUS DOPPLER BILATERAL HISTORY: Mottled COMPARISON: None TECHNIQUE: Bilateral lower extremity venous Doppler ultrasound study was performed. FINDINGS: The common femoral, femoral, popliteal, and posterior tibial veins are visualized. Normal flow compressibilities are demonstrated. The greater saphenous veins are also seen and grossly patent. IMPRESSION: 1. No evidence of deep venous thrombosis is seen. ASSESSMENT: Vasoplegia Hemoptysis Euglycemic DKA AFib with RVR Metabolic acidosis secondary to DKA and sepsis Hyperammonemia Sepsis secondary to UTI POA Gram-positive septicemia, POA Urinary Tract infection POA, Gram-negative rods Acute kidney injury POA , improving Electrolyte imbalance (hyponatremia, hyperkalemia)POA Leukocytosis POA Elevated Lipase POA Diabetes mellitus type 2 with the A1c 9.4% chronic anemia, POA Obesity POA Hypertension Hyperlipidemia History of breast CA currently in remission PLAN: Continue to monitor patient on ICU Euglycemic Diabetic Ketoacidosis WB ketones 2.7, pH 7.3, Glucose 175 Start on insulin drip, aggressive resuscitation AFib with RVR Started on metoprolol 25 mg BID start on amio drip Sepsis secondary to Urinary Tract infection POA Urine analysis is positive for occult blood, leukocyte esterase 500, urine RBCs 26-50, WBCs too numerous to count and urine sodium 26. Urine culture resulted in Gram-negative rods, sensitivities pending Procalcitonin 2.83. We will stop Zosyn and start Rocephin1 g IV b.id Gram positive septicemia, POA We will start the patient on vancomycin protocol We will consult ID in view of polymicrobial sepsis We will consult BIS in view of polymicrobial sepsis Acute kidney injury POA Electrolyte imbalance (hyponatremia, hyperkalemia)POA Avoid Nephrotoxic drugs. Continue LR @60 ml/hrs. We will monitor electrolytes closely and replace them as per protocol Elevated Lipase POA Lipase level 240 and continue IV hydration. Diabetes mellitus type 2 with the A1c 9.4% A1c 9.4% Monitor blood glucose a.c. and HS. Follow insulin sliding scale. Hypoglycemia protocol. Hypertension Continue Norvasc 5 mg. Give hydralazine IV as needed if SBP above 170 mm hg. Hyperlipidemia Continue atorvastatin 40 mg Continue GI and DVT prophylaxis. PRN medications for pain, fever, nausea and vomiting are added. We will consult Physical therapy in view of generalized weakness and inability to walk as per her baseline ATTESTATION BY PHYSICIAN I have seen and examined the patient. I reviewed the documentation, medical decision making, and treatment plan as noted by the resident provider above. I agree with the findings and plan of care. Beverly Delgado MD, NIHITHA MD Jun 03, 2024 12:11
--- NOTE | 2024-06-03 12:31 | NUR ---
D/C PLAN CM performed chart review. Patient was previously living alone and had a provider to assist with ADL's. Patient is now vented and DNR status. CM to f/u for possible LTAC placement once condition stable vs hospice if patient's condition worsens. Addendum: 06/03/24 at 1234 by CINDY CHOW CM Amended: Links added.
--- NOTE | 2024-06-03 14:06 | NUR ---
JEFFREY SEBASTIAN INFORMED OF ABG AT [id number] AND ABG AT [id number]
[2024-06-03 14:08] LABS: ABG BASE EXCESS -16.6 mmol/L (-2.0-3.0); ABG HCO3 9.8 mmol/L (21.0-28.0); ABG OXYGEN SATURATION 96.7 % (94.0-98.0); ABG PCO2 25 mmHg (32-45); ABG PH 7.211 (7.350-7.450); CARBON MONOXIDE 1.3 % (0.5-1.5); HHb 3.2; PO2, ARTERIAL BG 118.8 mmHg (83.0-108.0); VENT MODE, BG AC-VC (ROOM AIR)
--- NOTE | 2024-06-03 14:37 | PN ---
INFECTIOUS DISEASE PROGRESS NOTE Date of Service: Jun 03, 2024 SUBJECTIVE: This is a 73-year-old female patient who was admitted to the hospital with chief complaint of abdominal pain. A CT of the abdomen done showed 9 mm right lung nodule and a nonobstructing left periumbilical hernia. Urine cultures and blood cultures collected on admission came back positive for Klebsiella pneumoniae. Patient was seen and examined at bedside in the ICU room 207. Patient patient is now intubated and sedated. Observe active bleeding from the oral gastrostomy tube. Hemoglobin is currently 7.1. Currently on three different vasopressors and systolic blood pressure remains low in the 70s. WBC slightly trended down to 19.1 but no fever this morning, temperature is 97.7. Continues on meropenem and vancomycin per pharmacy protocol. We will continue to monitor patient. PHYSICAL EXAM EYES: Anicteric. Pupils equal and reactive. HENT: No oral thrush seen, moist Oral mucosa NECK: Supple, no JVD or thyromegaly. LUNGS: Good air entry. No rales, no rhonchi. Oxygen support. CARDIOVASCULAR: S1, S2 regular. No murmur heard. ABDOMEN: Soft, non tender, bowel sounds present, no organomegaly. CENTRAL NERVOUS SYSTEM: Awake, alert, oriented x 3. SKIN: No rashes, no swelling. LYMPHATICS: No peripheral lymphadenopathy. MUSCULOSKELETAL: No joint swelling, erythema or tenderness. EXTREMITIES: No cyanosis or clubbing BACK: No deformity, no pressure ulcer. GENITOURINARY: No dysuria or hematuria. Vital Sign (Last 12 Hours) 06/03/24 06/03/24 06/03/24 06/03/24 02:30 02:45 03:00 03:15 Pulse 85 76 75 77 Resp 29 30 28 26 B/P (MAP) 98/56 100/56 93/54 113/60 Pulse Ox 94 95 95 93 06/03/24 06/03/24 06/03/24 06/03/24 03:30 03:45 03:47 04:00 Temp 97.7 Pulse 78 77 78 77 Resp 30 23 28 30 B/P (MAP) 109/59 106/58 107/50 102/57 Pulse Ox 93 96 94 95 O2 Delivery Ventilator FiO2 50 06/03/24 06/03/24 06/03/24 06/03/24 04:00 04:00 04:00 04:15 Pulse 77 77 Resp 31 B/P (MAP) 99/56 Pulse Ox 95 99 O2 Delivery Ventilator+ FiO2 50 50 50 06/03/24 06/03/24 06/03/24 06/03/24 04:30 04:45 05:00 05:15 Pulse 77 79 77 81 Resp B/P (MAP) 102/57 96/55 101/57 130/64 Pulse Ox 95 95 95 95 06/03/24 06/03/24 06/03/24 06/03/24 05:30 06:00 06:37 07:00 Pulse 80 79 79 80 Resp B/P (MAP) 118/61 101/56 104/57 (73) Pulse Ox 95 95 41 O2 Delivery Ventilator Ventilator FiO2 50 50 50 06/03/24 06/03/24 06/03/24 06/03/24 07:15 07:30 07:45 08:00 Temp 97.2 Pulse 79 79 80 Resp B/P (MAP) 107/56 (73) 108/59 (75) 106/57 (73) Pulse Ox 75 76 82 FiO2 50 06/03/24 06/03/24 06/03/24 06/03/24 08:00 08:00 08:15 08:30 Pulse 81 112 110 Resp B/P (MAP) 118/41 (66) 104/59 (74) 101/63 (76) 97/60 (72) Pulse Ox 95 75 74 83 O2 Delivery Ventilator+ FiO2 50 06/03/24 06/03/24 06/03/24 06/03/24 08:45 09:00 09:15 09:30 Pulse 107 79 81 83 Resp 28 B/P (MAP) 94/60 (71) 105/57 (73) 100/55 (70) 100/54 (69) Pulse Ox 73 85 74 06/03/24 06/03/24 06/03/24 06/03/24 09:36 09:45 10:00 10:15 Pulse 81 81 81 81 Resp B/P (MAP) 95/53 (67) 101/43 (62) 91/52 (65) 87/56 (66) Pulse Ox 83 76 74 FiO2 50 06/03/24 06/03/24 06/03/24 06/03/24 10:30 10:45 11:00 11:15 Pulse 81 80 77 78 Resp 28 28 28 28 B/P (MAP) 96/54 (68) 77/47 (57) 74/46 (55) 74/45 (55) Pulse Ox 82 75 80 06/03/24 06/03/24 06/03/24 06/03/24 11:30 11:52 12:00 12:00 Pulse 79 79 Resp 28 B/P (MAP) 77/47 (57) Pulse Ox 65 95 O2 Delivery Ventilator+ FiO2 50 50 50 Intake & Output (last 24hrs) 06/02/24 06/02/24 06/03/24 15:00 23:00 07:00 Intake Total 3487.4 ml 1995.8 ml 3229.5 ml Balance 3487.4 ml 1995.8 ml 3229.5 ml LABS: Laboratory: Test 06/03/24 14:06 06/03/24 10:58 06/03/24 09:26 06/03/24 08:04 Range/Units Blood Gas Specimen Type Arterial Arterial Blood pH 7.211 *L 7.350-7.450 Arterial Blood Partial Pressure CO2 25 L 32-45 mmHg Arterial Blood Partial Pressure O2 118.8 H 83.0-108.0 mmHg Arterial Blood HCO3 9.8 L 21.0-28.0 mmol/L Arterial Blood Oxygen Saturation 96.7 94.0-98.0 % Arterial Blood Base Excess -16.6 L -2.0-3.0 mmol/L Hemoglobin (Blood Gas) 7.3 L 12.0-16.0 g/dL Sodium (Blood Gas) 141 136-145 MMOL/L Bedside Potassium (Blood Gas) 3.6 3.4-4.5 MMOL/L Bedside Chloride (Blood Gas) 102 98-107 MMOL/L Bedside Glucose (Blood Gas) 101 H 65-95 MG/DL Bedside Ionized Calcium (Blood Gas) 0.92 L 1.15-1.33 MMOL/L Bedside Lactic Acid (Blood Gas) 20.75 *H 0.36-0.75 MMOL/L Blood Gas Temperature 37.0 35.5-37.0 CELSIUS Blood Gas Respiration Rate 28.0 min. Blood Gas Vent Mode AC-VC ROOM AIR FiO2 50.0 % Blood Gas Tidal Volume 400 ml Blood Gas PEEP 8 cm H2O Blood Gas Specimen Comment A-LINE [facility] Whole Blood Glucose 131 H 70-110 MG/DL Hemoglobin 7.1 L 12.0-16.0 g/dL Hematocrit 22.1 L 36-48 % Sodium Level 146 H 136-145 mmol/L Potassium Level 3.7 3.5-5.1 mmol/L Chloride Level 105 101-111 mmol/L Carbon Dioxide Level 14 L 21-32 mmol/L Blood Urea Nitrogen 26 H 7-18 mg/dL Creatinine 2.5 H 0.5-1.0 mg/dL Glomerular Filtration Rate Calc 20 >90 mL/min Random Glucose 132 H 70-105 mg/dL Whole Blood Ketones Quantitative 0.5 0.0-0.6 mmol/L Total Calcium 6.7 L 8.5-10.1 mg/dL Activated Partial Thromboplast Time 59.3 #H 26.3-35.5 SEC Test 06/03/24 03:11 06/02/24 16:00 06/02/24 09:08 06/02/24 09:07 Range/Units White Blood Count 19.1 H 4.8-10.8 K/uL Red Blood Count 2.61 L 4.00-5.50 MIL/uL Mean Corpuscular Volume 91.2 79-99 fL Mean Corpuscular Hemoglobin 29.5 27.0-33.0 pg Mean Corpuscular Hemoglobin Concent 32.4 32.0-36.0 g/dL Red Cell Distribution Width 16.3 H 11.0-15.5 % Platelet Count 168 # 130-400 K/uL Mean Platelet Volume 13.1 H 7.5-10.5 fL Immature Granulocyte % (Auto) 6.4 H 0-1 % Neutrophils (%) (Auto) 74.6 40.0-77.0 % Lymphocytes (%) (Auto) 10.9 L 21.0-51.0 % Monocytes (%) (Auto) 7.4 3.0-13.0 % Eosinophils (%) (Auto) 0.1 0.0-8.0 % Basophils (%) (Auto) 0.6 0.0-5.0 % Neutrophils # (Auto) 14.3 H 1.8-7.7 K/uL Lymphocytes # (Auto) 2.1 1.0-4.8 K/uL Monocytes # (Auto) 1.4 H 0.1-1.0 K/uL Eosinophils # (Auto) 0.01 0.00-0.70 K/uL Basophils # (Auto) 0.11 0.00-0.20 K/uL Absolute Immature Granulocyte (auto 1.23 H 0-1 K/uL Nucleated Red Blood Cells 2.0 H 0.0-0.19 % Magnesium Level 3.00 H 1.80-2.40 mg/dL Troponin I High Sensitivity 182 *H 4-50 ng/L Prothrombin Time 17.5 H 9.6-11.6 SEC Prothromb Time International Ratio 1.68 H 0.85-1.15 Lactic Acid Level 13.4 H 0.8-2.5 mmol/L D-Dimer Quantitative (PE/DVT) 6583 *H 0-500 ng/mL Ammonia 43 H 11-32 umol/L Blood Gas Flow-by 2.00 0.00-15.00 L/min Test 06/02/24 04:32 06/01/24 20:20 Range/Units Total Bilirubin 0.4 0.2-1.0 mg/dL Aspartate Amino Transf (AST/SGOT) 34 10-37 U/L Alanine Aminotransferase (ALT/SGPT) 30 12-78 U/L Alkaline Phosphatase 357 H 50-136 U/L Total Protein 6.8 6.0-8.3 g/dL Albumin 1.3 L 3.5-5.0 g/dL Stool Occult Blood POSITIVE H NEGATIVE ASSESSMENT: Acute hypoxic respiratory failure, requiring intubation. Klebsiella pneumoniae bacteremia. Urinary tract infection with Klebsiella pneumoniae. Leukocytosis. Acute hypoxic respiratory failure requiring oxygen support. Abdominal pain. Diabetes mellitus. Anemia secondary to actively bleeding. PLAN: Continue meropenem IV. Currently on vancomycin per pharmacy protocol. Continue critical care support. Continue vasopressor support. Continue GI prophylaxis. Continue oxygen support. Continue pain management. This case was reviewed and discussed with my supervising physician and the above assessment and plan was formulated and agreed upon. ATTESTATION BY PHYSICIAN I have seen and examined the patient. I reviewed the documentation, medical decision making, and treatment plan as noted by the mid-level provider above. I agree with the findings and plan of care. MARY CHAN MD, [facility] Jun 03, 2024 14:37
--- NOTE | 2024-06-03 15:15 | NUR ---
BLOOD CONSENT SIGNED. SON ALEX MARISCAL, TELEPHONE CONSENT FOR BLOOD AND BLOOD PRODUCTS.
[2024-06-03 15:18] LABS: CREATININE 2.6 mg/dL (0.5-1.0); HEMATOCRIT 20.1 % (36-48); POTASSIUM 3.7 mmol/L (3.5-5.1)
[2024-06-03] MEDS: hydroCORTisone SOD SUCCINATE 100 MG/2 ML VIAL IV SCH (15:57)
[2024-06-03 17:02] LABS: ABG BASE EXCESS -14.1 mmol/L (-2.0-3.0); ABG HCO3 11.2 mmol/L (21.0-28.0); ABG OXYGEN SATURATION 96.5 % (94.0-98.0); ABG PCO2 24 mmHg (32-45); ABG PH 7.284 (7.350-7.450); CARBON MONOXIDE 1.1 % (0.5-1.5); HHb 3.5; PO2, ARTERIAL BG 113.2 mmHg (83.0-108.0); VENT MODE, BG AC-VC (ROOM AIR)
[2024-06-03] MEDS: DEXTROSE 50%-WATER 50 ML DISP.SYRIN IV ONE (17:11)
[2024-06-03] MEDS ORDERED: DEXTROSE 50%-WATER 50 ML DISP.SYRIN IV PRN (17:30)
[2024-06-03] MEDS: SODIUM BICARB 50MEQ 50ML VIAL IV SCH (17:45)
[2024-06-03] MEDS: PoTASSium chloRIDE 10MEQ/100ML 100 ML IV PRN (18:43)
--- NOTE | 2024-06-03 18:56 | HMCSR ---
APPROVED REPORT EXAM: Two-dimensional and M-mode echocardiogram with Doppler and color Doppler. Study Details: status post code blue INDICATION ICD: Chest Pain 2D Dimensions RVDd3.2 cmLVOT diam1.8 (1.8-2.4cm)LA ESV INDEX (4CH)32.70 mL/m2 IVSd1.5 (0.7-1.1cm) LVDd2.6 (3.8-5.6cm) PWd1.4 (0.7-1.1cm) M-Mode Dimensions EPSS0.9 cm LA (MM)3.7 (1.6-4.0cm) Ao Root(MM)2.5 (2.0-3.7cm) Aortic Valve AoV VTI0.3 mAo Mean GR13.0 mmHgLVOT VTI0.16 m MARV (VMAX)1.3 cm2AVA (VTI) 1.3 cm2 Mitral Valve MV E Rygj363.9 cm/sDECEL Pemp672 ms MV A Vmax96.5 cm/sP 1/2 T101 ms E/A ratio1.2MVA (PHT)2.2 cm2 TDI E/E' Hkkwxk13.5E/E' Cxsxjzo81.8 Medial E' Peak V3.80 cm/sLateral E' Peak V4.50 cm/s Pulmonary Valve PV VTI0.14 mPV Mean GR2 mmHg Tricuspid Valve TR Vmax2.2 m/s TR Peak GR19.3 mmHg Left Ventricle Left ventricular cavity size is normal. There is normal LV segmental wall motion. Moderate concentric left ventricular hypertrophy. LVEF is >55%. The left ventricular diastolic function is normal. Right Ventricle The right ventricle is normal size. Right ventricular systolic function is reduced. Atria The left atrium size is normal. The right atrium size is normal. Aortic Valve Aortic valve is trileaflet, mildly sclerotic and trivially stenotic. AV mean gradient is 13 mmHg; AV peak gradient is 27 mmHg; AV area is 1.3 cm consistent with mild . No aortic regurgitation is pres ent. There is no aortic valvular stenosis. Mitral Valve There is moderate mitral annular calcification. There is no mitral valve regurgitation noted. There i s mild mitral valve stenosis with MV area of 2.2 cm by pressure 1/2 time method. Tricuspid Valve The tricuspid valve is normal in structure and function. There is no tricuspid valve regurgitation no wendy. Pulmonic Valve The pulmonary valve is normal in structure and function. There is no pulmonic valvular regurgitation. Great Vessels The aortic root is normal in size. IVC is dilated and collapses <50% with inspiration, consistent wit h an elevated RA pressure of 15 mmHg. Pericardium Small pericardial effusion. Conclusion Small pericardial effusion. Moderate concentric left ventricular hypertrophy. There is normal LV segmental wall motion. LVEF is >55%. Aortic valve is trileaflet, mildly sclerotic and trivially stenotic. AV mean gradient is 13 mmHg; AV peak gradient is 27 mmHg; AV area is 1.3 cm consistent with mild . There is mild mitral valve stenosis with MV area of 2.2 cm by pressure 1/2 time method. There is moderate mitral annular calcification.
[2024-06-03] MEDS: EPINEPHrine PF 1MG (1:1,000) 10 MG in 0.9% NACL 250ML 240 ML IV PRN (19:21)
[2024-06-03 22:45] LABS: ABG BASE EXCESS -22.4 mmol/L (-2.0-3.0); ABG HCO3 6.3 mmol/L (21.0-28.0); ABG OXYGEN SATURATION 93.1 % (94.0-98.0); ABG PCO2 23 mmHg (32-45); ABG PH 7.053 (7.350-7.450); CARBON MONOXIDE 1.1 % (0.5-1.5); HHb 6.8; PO2, ARTERIAL BG 93.9 mmHg (83.0-108.0); VENT MODE, BG ACVC (ROOM AIR)
[2024-06-03] MEDS: SODIUM BICARB 50MEQ 50ML VIAL IV STA (23:08)
[2024-06-04] VITALS: BP 49/37; PULSE 68; RESP 30; TEMP 96.4; O2SAT 98
[2024-06-04 00:15] VITALS: BP 47/34; PULSE 61; RESP 28
[2024-06-04 00:30] VITALS: BP 29/26; RESP 28
[2024-06-04 00:45] VITALS: BP 25/22; RESP 28
--- NOTE | 2024-06-04 01:14 | NUR ---
pt [address] bardales pronounced. Vent removed.
--- NOTE | 2024-06-04 01:30 | ERN ---
CODEBLUE/INTUBATION/PROCEDURE DATE: 06/04/24 ER physician pronouncement note Responded to the request by nursing supervisor [employer] and ICU nurses as the patient went into asystole. Patient has been extremely sick on multiple pressors mechanical ventilator and lactic acidosis of more than 20. Family requested a code status changed to DNR and hence CPR was not initiated. When I evaluated the patient, there was no palpable rhythm No palpable pulse No spontaneous respirations No motor response Pupils are dilated and fixed Skin was cold to touch Patient was pronounced at 12:43 a.m. on 2023 (1) Septic shock (2) Multiorgan failure summary and other notes to be completed by the primary team LYNN HANNA MD Jun 04, 2024 01:30
--- NOTE | 2024-06-04 02:25 | NUR ---
son dillon Cutler [phone] [id number] Son notified that pt . He is on his way
[2024-06-04] MEDS ORDERED: hydroCORTisone SOD SUCCINATE 100 MG/2 ML VIAL IV SCH (03:00)
--- NOTE | 2024-06-04 04:52 | NUR ---
body to karla at this time
--- NOTE | 2024-06-04 05:32 | DS ---
NOTE Date/Time of : [ 06/04/2024@0043] Code Status: [ DNR] Events prior to patient's : [Patient this is a 73-year-old with past medical history of diabetes type 2, hypertension, osteoporosis, arthritis, breast cancer in remission and was admitted on 05/30/2024 for complaints of abdominal pain. Patient was diagnosed with g positive septicemia, sepsis due to UTI, acute kidney injury versus chronic kidney injury uncontrolled diabetes and hypertension ] Events related to : [Patient went into acute hypoxemic respiratory failure requiring oral intubation on 06/02/2024.Patient prognosis was poor and patient was DNR on 06/03/2024 ] Cause: [Cardiopulmonary arrest and sepsis ] Manner/Autopsy: [Not applicable ] Provider Pronouncing : [Dr.Anuradha Moscoso ] Attending Physician: [Dr.Padmini Delgado] DONNIE DAVEYP Jun 04, 2024 05:32
== END 2024-06-04 00:43 | DRG 871 ==
LOC: EDH 02:02 → EDBD 02:02 → EDHIP 05:10 → 4DH 06:11 → 2DH 06-02 09:20 → 2BH 06-02 10:32
PROVIDERS: ADMIT Internal Medicine; ATTEND Internal Medicine
PROC: 5A1945Z Respiratory Ventilation, 24-96 Consecutive Hours (ICD-10-PCS; principal; 2024-06-02)
PROC: 0BH17EZ Insertion of Endotracheal Airway into Trachea, Via Natural or Artificial Opening (ICD-10-PCS; 2024-06-02)
PROC: 05HM33Z Insertion of Infusion Device into Right Internal Jugular Vein, Percutaneous Approach (ICD-10-PCS; 2024-06-02)
PROC: B543ZZA Ultrasonography of Right Jugular Veins, Guidance (ICD-10-PCS; 2024-06-03)
PROC: 30233N1 Transfusion of Nonautologous Red Blood Cells into Peripheral Vein, Percutaneous Approach (ICD-10-PCS; 2024-06-03)
DX: A41.50 Gram-negative sepsis, unspecified (principal); E11.10 Type 2 diabetes mellitus with ketoacidosis without coma; J96.01 Acute respiratory failure with hypoxia; G92.8 Other toxic encephalopathy; R65.21 Severe sepsis with septic shock; N17.0 Acute kidney failure with tubular necrosis; N30.00 Acute cystitis without hematuria; E72.20 Disorder of urea cycle metabolism, unspecified; E11.65 Type 2 diabetes mellitus with hyperglycemia; R91.1 Solitary pulmonary nodule; E66.01 Morbid (severe) obesity due to excess calories; E87.5 Hyperkalemia; D64.9 Anemia, unspecified; E11.22 Type 2 diabetes mellitus with diabetic chronic kidney disease; N18.31 Chronic kidney disease, stage 3a; G89.29 Other chronic pain; I12.9 Hypertensive chronic kidney disease with stage 1 through stage 4 chronic kidney disease, or unspecified chronic kidney disease; E78.00 Pure hypercholesterolemia, unspecified; I48.0 Paroxysmal atrial fibrillation; B96.1 Klebsiella pneumoniae [K. pneumoniae] as the cause of diseases classified elsewhere; Z66 Do not resuscitate; D50.0 Iron deficiency anemia secondary to blood loss (chronic); Z51.5 Encounter for palliative care; I46.9 Cardiac arrest, cause unspecified; M54.50 Low back pain, unspecified; I25.119 Atherosclerotic heart disease of native coronary artery with unspecified angina pectoris; J45.909 Unspecified asthma, uncomplicated; K56.41 Fecal impaction; M81.0 Age-related osteoporosis without current pathological fracture; Z90.710 Acquired absence of both cervix and uterus; Z68.33 Body mass index [BMI] 33.0-33.9, adult; Z90.49 Acquired absence of other specified parts of digestive tract; Z79.4 Long term (current) use of insulin; Z79.899 Other long term (current) drug therapy; Z79.84 Long term (current) use of oral hypoglycemic drugs; Z79.51 Long term (current) use of inhaled steroids; Z85.3 Personal history of malignant neoplasm of breast; Z83.3 Family history of diabetes mellitus; Z82.49 Family history of ischemic heart disease and other diseases of the circulatory system; Z79.83 Long term (current) use of bisphosphonates
CPT/HCPCS: 31500; 36415; 36600; 71045; 73521; 74018; 74176; 80048; 80053; 80202; 81001; 82010; 82140; 82270; 82435; 82550; 82570; 82803; 82947; 82948; 83036; 83605; 83690; 83735; 83935; 84100; 84132; 84145; 84295; 84300; 84443; 84484; 85014; 85018; 85025; 85027; 85378; 85610; 85730; 86850; 86900; 86901; 86923; 87040; 87086; 87186; 92950; 93005; 93306; 93970; 94002; 94003; 94640; 94660; 96365; 96375; 96376; 99291; A4344; A4357; G0378; J0171; J0282; J0330; J0612; J0696; J1171; J1644; J1720; J1815; J1885; J2060; J2185; J2270; J2371; J2405; J2470; J2543; J2765; J3010; J3370; J3475; J3480; J3490; J7030; J7050; J7060; J7070; J7120; P9016; P9046; Q9963; 3370; A9900